=== PATIENT | female | born 1955 | race Caucasian/White ===

== ENCOUNTER 2024-07-18 12:24 | Outpatient (REF) | payer MEDICARE, MEDICAID, SELFPAY ==
--- NOTE | ~2024-07-18 | MM_ITS ---
EXAMINATION: MM SCREENING DIGITAL BREAST TOMOSYNTHESIS, BILATERAL CLINICAL INFORMATION: Screening. Asymptomatic. COMPARISON: Mammography: Comparison is made with available priors TECHNIQUE: Digital breast mammography with tomosynthesis is performed in both the craniocaudal and mediolateral oblique views along with computer-aided detection (CAD). FINDINGS: There are scattered areas of fibroglandular density (ACR BI-RADS breast composition Category b). There are no significant masses, abnormal calcifications, or other abnormalities. MM/MM tomosynthesis screening BI IMPRESSION: No mammographic evidence of malignancy. ASSESSMENT: BI-RADS BI-RADS 1 - Negative RECOMMENDATION: Routine annual mammography screening. 1 year F/U This examination should not preclude the clinical evaluation of a suspicious palpable abnormality. This patient's information was entered into a reminder system with a target due date for their next mammogram. Electronically signed by: Mariaelena Sanabria DO 07/30/2024 05:15 PM EDT
== END 2024-07-18 12:25 | disposition home or self-care (01) ==
LOC: HO.MAMMO 12:24
PROVIDERS: PCP Hospitalist; Visit Provider Hospitalist
DX: Z12.31 Encounter for screening mammogram for malignant neoplasm of breast (principal)
CPT/HCPCS: 77063; 77067

== ENCOUNTER → 2024-07-18 12:30 | Outpatient (BNV) | payer MEDICARE, MEDICAID, SELFPAY | PROVIDERS: PCP Hospitalist; Visit Provider Internal Medicine | DX: Z12.31 Encounter for screening mammogram for malignant neoplasm of breast (principal) | CPT/HCPCS: 77063; 77067 ==

== ENCOUNTER 2024-08-08 13:31 | Outpatient (AMB) | payer MEDICARE, SELFPAY ==
[2024-08-08 13:34] VITALS: BP 112/58; PULSE 86; O2SAT 94; BMI 47.6
--- NOTE | 2024-08-08 13:34 | MHC.OFFVIS ---
Vital Signs 08/08/24 13:34 Height 5 ft 2 in Weight 260 lb 6 oz BMI 47.6 BP 112/58 L Blood Pressure Location Rt radial Position Sitting Pulse 86 Pulse Source Doppler Pulse Oximetry (%) 94 Oxygen Delivery Method Room Air Intake Visit Reasons: copd/sleep apnea Allergies topiramate [From Topamax] Adverse Reaction (Intermediate, Verified 08/08/24 13:40) Unknown oxybutynin Adverse Reaction (Unknown, Verified 08/08/24 13:40) Unknown oxycodone Adverse Reaction (Unknown, Verified 08/08/24 13:40) Unknown tuberculin, purified protein deriva Adverse Reaction (Unknown, Verified 08/08/24 13:40) Unknown lithium Allergy (Severe, Uncoded 08/08/24 13:40) coma zyprexa Adverse Reaction (Unknown, Uncoded 08/08/24 13:40) Unknown HPI HPI copd/sleep apnea: Details: 69-year-old lady, former 40+ pack-year smoker, quit 2020, with underlying history of COPD and CHRIS on CPAP therapy, prior pulmonary emboli approximately 5 years prior currently on no anticoagulation therapy referred for pulmonary evaluation. Patient has been using trilogy and albuterol MDI/nebs with reasonable control of her underlying symptoms. She denies recent exacerbations. Patient has been using her CPAP machine, however she had significant weight changes in does not think it controls her symptoms. She denies family history of lung disease or exposure to industrial dusts. [facility] Social History (Updated 08/08/24 @ 13:41 by Cherie Pickard Gabriela) Patient Tobacco Use Status: Former Tobacco user Tobacco use type: Cigarette Years Smoked: quit december 2021, started at age 16, 1PPD Review of Systems Const Denies daytime sleepiness, Denies excessive sweating, Denies fatigue, Denies fever(s), Denies lethargy, Denies malaise, Denies night sweats, Denies snoring and Denies weight loss Eyes Denies blurry vision and Denies itchy eyes ENT Denies nasal congestion, Denies post nasal drip, Denies sinus pain, Denies sinus pressure and Denies other ( Thrush) Card Denies chest pain, Denies pedal edema, Denies dyspnea, Denies orthopnea and Denies paroxysmal nocturnal dyspnea Resp Denies cough, Denies hemoptysis, Denies excessive phlegm production, Denies dyspnea, Denies snoring and Denies wheezing GI Denies abdominal pain and Denies heartburn Musc Denies myalgias, Denies arthralgias and Denies joint swelling Skin/Breast Denies rash Neuro Denies memory loss and Denies seizure-like activity Psych Denies abnormal sleep pattern, Denies anxiety and Denies memory loss Endo Denies excessive sweating, Denies fatigue and Denies heat intolerance Alexx/Lymph Denies easy bruising Aller/Immun Denies itchy eyes, Denies seasonal rhinorrhea and Denies wheezing Physical Exam Vital Signs: Last Vital Signs Pulse 86 08/08/24 13:34 BP 112/58 L 08/08/24 13:34 Pulse Ox 94 08/08/24 13:34 Oxygen Delivery Method Room Air 08/08/24 13:34 BMI result Body Mass Index 47.6 Const General: no acute distress and alert Nutritional Appearance: obese Orientation/consciousness: Other orientation findings ( oriented) HEENT Head: Yes atraumatic Eyes General: appearance normal, both eyes and all related structures Sclerae: sclerae normal EOM: EOMs intact bilaterally Neck Neck: Yes supple Lymphatic: no lymphadenopathy noted Resp Effort & Inspection: normal respiratory effort and no use of accessory muscles Auscultation: clear to auscultation bilaterally Cardio Rate: regular rate Rhythm: regular rhythm Heart sounds: no gallops, no murmurs and no rubs Skin General skin exam: other ( warm) Extrem General: No clubbing, No cyanosis and No edema Assessment & Plan Assessment & Plan (1) History of pulmonary embolism: Code(s): Z86.711 - Personal history of pulmonary embolism Category: Medical Plan: Approximately 5 years prior, unclear whether a provoked, or unprovoked, currently not on anticoagulation. Will obtain D-dimer for further evaluation. (2) COPD (chronic obstructive pulmonary disease): Code(s): J44.9 - Chronic obstructive pulmonary disease, unspecified Category: Medical Plan: Unclear severity. Will obtain full PFT. Will continue current regimen of Trelegy and albuterol MDI. (3) CHRIS (obstructive sleep apnea): Code(s): G47.33 - Obstructive sleep apnea (adult) (pediatric) Category: Medical Plan: Currently on CPAP therapy with significant weight changes in unrestful sleep. Will obtain home sleep study. (4) Personal history of nicotine dependence: Code(s): Z87.891 - Personal history of nicotine dependence Category: Medical Plan: Will obtain lung cancer screening CT chest. Orders: Orders RT home sleep study Today G47.33 - Obstructive sleep apnea (adult) (pediatric) CT lung screening Today Z87.891 - Personal history of nicotine dependence D Dimer High Sensitivity Today Z86.711 - Personal history of pulmonary embolism PFT pulmonary function test Today J44.9 - Chronic obstructive pulmonary disease, unspecified Coding Level of Care Code New Pt Level 5 (87017) Diagnoses History of pulmonary embolism Z86.711 COPD (chronic obstructive pulmonary disease) J44.9 CHRIS (obstructive sleep apnea) G47.33 Personal history of nicotine dependence Z87.891
== END 2024-08-08 14:01 | disposition home or self-care (01) ==
PROVIDERS: PCP Hospitalist; Visit Provider Internal Medicine Pulmonary Disease
DX: J44.9 Chronic obstructive pulmonary disease, unspecified (principal); Z86.711 Personal history of pulmonary embolism; G47.33 Obstructive sleep apnea (adult) (pediatric); Z87.891 Personal history of nicotine dependence
CPT/HCPCS: 99204

== ENCOUNTER → 2024-08-08 13:31 | Outpatient (BNVA) | payer MEDICARE, SELFPAY | PROVIDERS: PCP Hospitalist; Visit Provider Internal Medicine Pulmonary Disease | DX: J44.9 Chronic obstructive pulmonary disease, unspecified (principal); G47.33 Obstructive sleep apnea (adult) (pediatric); Z99.89 Dependence on other enabling machines and devices; Z87.891 Personal history of nicotine dependence; Z86.711 Personal history of pulmonary embolism | CPT/HCPCS: 99202 ==

== ENCOUNTER 2024-08-30 08:56 | Outpatient (AMB) | payer MEDICARE, SELFPAY ==
--- NOTE | 2024-08-30 09:16 | A.OFFVIS_ITS ---
Intake Visit Reasons: urinary incotinence/OAB/hx UTI Intake Note: New Patient presents for initial visit for incontinence, OAB, history of uti Urology Medications: none Blood Thinner: aspirin PVR: 0ml's Aquarist Required: No Accompanied by: [facility] Allergies topiramate [From Topamax] Adverse Reaction (Intermediate, Verified 08/30/24 09:39) Unknown oxybutynin Adverse Reaction (Unknown, Verified 08/30/24 09:39) Unknown oxycodone Adverse Reaction (Unknown, Verified 08/30/24 09:39) Unknown tuberculin, purified protein deriva Adverse Reaction (Unknown, Verified 08/30/24 09:39) Unknown lithium Allergy (Severe, Uncoded 08/30/24 09:39) coma zyprexa Adverse Reaction (Unknown, Uncoded 08/30/24 09:39) Unknown Medication List - Last Reconciled 08/30/24 by RUBINA Richardson-LISE albuterol 90 mcg/actuation mcg inhalation albuterol sulfate 0.63 mg inhalation Q6H aspirin 81 mg PO DAILY bisacodyl 10 mg OK DAILY PRN ferrous sulfate 325 mg PO DAILY zjearigceke-kjmrnhria-uyqrmhpd 100-62.5-25 mcg (Trelegy Ellipta) 1 inh inhalat ion DAILY gabapentin 300 mg PO BID hydroxyzine HCl 50 mg PO TID insulin lispro (Humalog U-100 Insulin) 1 sliding scale dose subcut USEASDIRECTD levothyroxine 125 mcg PO DAILY loperamide 2 mg PO Q4H PRN losartan 25 mg PO DAILY meclizine 12.5 mg PO BID-QID PRN pantoprazole 40 mg PO DAILY risperidone 2 mg PO BID rosuvastatin 5 mg PO DAILY semaglutide (Ozempic) 0.5 mg subcut QWEEK venlafaxine ER 150 mg PO DAILY HPI Comments Details: Mattie is a pleasant 69-year-old female patient of Dr. Snow will resides at [facility] in his accompanied by Ladonna at today's office visit. She has a past medical history of persistent mood disorder, personality disorder, PTSD, COPD, anxiety, type 2 diabetes, obstructive sleep apnea, obesity, renal cysts, overactive bladder, incontinence, pulmonary embolism, hypothyroidism, hyperlipidemia, mild intellectual disability, GERD, polymyalgia rheumatica, and fibromyalgia. She presents to the office today as a new patient for mixed urinary incontinence. In discussion with the patient today she reports when she lived in [place] she had a Silva catheter due to urinary incontinence. We discussed at length indications for Silva catheter. She reports mixed urinary incontinence however this is not every day. She reports at times she does not utilize any change in adult diapers however she has days where she can change her adult diaper up to 5 times per day. We discussed at length potential causes of mixed urinary incontinence. She reports having trialed pelvic floor therapy in [place] and did not find this helpful. We discussed potential causes of mixed urinary incontinence as well as further treatment options. Unable to obtain urine for urinalysis today however PVR 0 mL. She otherwise denies hematuria, dysuria, foul smelling urine, changes to urinary stream, flank pain, fever, and or chills. [facility] Social History Patient Tobacco Use Status: Former Tobacco user Tobacco use type: Cigarette Years Smoked: quit december 2021, started at age 16, 1PPD Review of Systems Eyes Reports no additional complaints ENT Reports as per HPI Card Reports as per HPI Resp Reports as per HPI GI Reports as per HPI Reports as per HPI Musc Reports as per HPI Neuro Reports as per HPI Psych Reports as per HPI Endo Reports as per HPI Alexx/Lymph Reports no additional complaints Aller/Immun Reports no additional complaints Physical Exam Const General: cooperative, healthy appearing, comfortable, no acute distress, well developed, alert and awake Nutritional Appearance: obese Orientation/consciousness: patient oriented x3 Limitations: wheelchair HEENT Head: Yes normal to inspection, Yes normocephalic and Yes atraumatic Ears: hearing grossly normal bilaterally Eyes General: appearance normal, both eyes and all related structures Neck Neck: Yes normal visual inspection and Yes trachea midline Chest Chest palpation & inspection: normal inspection of the chest Resp Effort & Inspection: normal respiratory effort and able to speak in complete sentences Cardio Rate: regular rate GI Inspection: Yes normal to inspection General: Yes no CVA tenderness Back/Spine/Pelvis Back: no CVA tenderness Skin General skin exam: no rashes or lesions noted Neuro General: patient oriented x3 Extrem General: Yes normal to inspection Psych Appearance: grossly normal and well kempt Mental Status: mental status grossly normal Speech and movement: Normal speech and movement present and Clear speech present Affect: normal affect Attitude: cooperative Thought process: Normal thought process present Thought content: Normal thought content present Insight: Fair insight present (Psych) Judgement: Fair judgement present (Psych) Office Procedures Post Void Residual Post Residual Void Post Void Residual (PVR): 0 [id number]-[id number] Void Residual by ultrasound Assessment & Plan Assessment & Plan (1) Urinary incontinence, mixed: Code(s): N39.46 - Mixed incontinence Category: Medical Plan Unable to obtain urine for urinalysis however PVR 0 mL. We discussed importance of weight loss as well as management of diabetes for improvement in lower urinary tract symptoms as well as overall health and well- being. Will obtain retroperitoneal ultrasound for further assessment evaluation. We discussed potential causes of mixed urinary incontinence. Start Myrbetriq as discussed and prescribed. Discussed bladder triggers/irritants. Follow-up in 3 months with imaging and PVR; or sooner with any issues, concerns, and or questions. Orders: Orders US retroperitoneal comp Today N39.46 - Mixed incontinence AMB Post Void Residual by ultrasound Today N39.41 - Urge incontinence Medications: New mirabegron ER (Myrbetriq) 25 mg PO DAILY 30 tabs 3RF 30 days N32.81 - Overactive bladder, R39.15 - Urgency of urination Patient Instructions: The patient had an opportunity to ask questions regarding the treatment plan. All questions were answered. Physical exam, labs, and imaging were discussed and reviewed in detail. As well as risks, benefits, and discussion of treatment choices. No major barriers to understanding were identified. The patient expressed understanding and agreement with the above treatment plan. The patient was made aware they should contact our office by phone for worsening of their current condition, the appearance of new symptoms, or with any questions or concerns. Compliance is encouraged with any medications and follow up testing that is ordered. It is a privilege to be allowed the opportunity to participate in? your urological care.? Again, if you have any questions or concerns If you have any questions or concerns please do not hesitate to contact me. The office is [phone]. This note is constructed using voice recognition software. While every effort has been made to ensure accuracy military lawyer errors may have been included. Yours sincerely, RUBINA Richardson-LISE Coding Level of Care Code New Pt Level 4 (29870) Diagnoses Urinary incontinence, mixed N39.46 CPT Codes Post Residual Void - PVR CPT Code: 49689-Umqe Void Residual by ultrasound ([id number])
== END 2024-08-30 09:44 | disposition home or self-care (01) ==
LOC: HO.HUSH 08:57
PROVIDERS: PCP Hospitalist; Visit Provider Nurse Practitioner Family
DX: N39.46 Mixed incontinence (principal)
CPT/HCPCS: 99204

== ENCOUNTER → 2024-08-30 08:56 | Outpatient (BNVA) | payer MEDICARE, SELFPAY | PROVIDERS: PCP Hospitalist; Visit Provider Nurse Practitioner Family | DX: N39.46 Mixed incontinence (principal); N32.81 Overactive bladder; Z87.440 Personal history of urinary (tract) infections | CPT/HCPCS: 51798; 99202 ==

== ENCOUNTER 2024-09-12 13:59 | Outpatient (REF) | payer MEDICARE, SELFPAY ==
[2024-09-12 11:45] VITALS: PULSE 82; O2SAT 84
--- NOTE | 2024-09-12 14:15 | PFT_ITS ---
Indication: COPD Spirometry [FEV1 to FVC 80%; FEV1 1.49 L; FVC 1.87 L. No significant response to bronchodilators noted. Maximum voluntary ventilation 54% predicted] Lung Volumes [Total lung capacity 71% predicted; expiratory reserve volume 5% predicted] Diffusion Capacity [DLCO 69% predicted; DLCO VA 106% predicted] Comparisons [None] Interpretation [No obstructive ventilatory defects. No significant response to bronchodilators noted. There is a moderate decrease in the maximum voluntary ventilation secondary to likely deconditioning. Can not rule out neuromuscular diseases. The patient does have restrictive ventilatory defect consistent with mild restrictive lung disease. Patient also has a significantly decreased expiratory reserve volume secondary to an elevated BMI. Patient has a mild diffusion impairment that does correct when corrected for the alveolar volume suggesting that is hyperexpansion less likely intrinsic process. Clinical correlation warranted.] MTDD
== END 2024-09-12 14:00 | disposition home or self-care (01) ==
LOC: HO.RESP 13:59
PROVIDERS: PCP Hospitalist; Visit Provider Internal Medicine Pulmonary Disease
DX: J44.9 Chronic obstructive pulmonary disease, unspecified (principal)
CPT/HCPCS: 94010; 94640; 94727; 94729

== ENCOUNTER → 2024-09-12 14:15 | Outpatient (BNV) | payer MEDICARE, SELFPAY | PROVIDERS: PCP Hospitalist; Visit Provider Hospitalist | DX: J44.9 Chronic obstructive pulmonary disease, unspecified (principal) | CPT/HCPCS: 94060; 94727; 94729 ==

== ENCOUNTER → 2024-09-18 12:48 | Outpatient (REF) | payer MEDICARE, SELFPAY | LOC: HO.SL 12:48 | PROVIDERS: PCP Hospitalist; Visit Provider Internal Medicine Pulmonary Disease | DX: G47.33 Obstructive sleep apnea (adult) (pediatric) (principal) | CPT/HCPCS: 95806 ==

== ENCOUNTER → 2024-09-18 13:02 | Outpatient (BNV) | payer MEDICARE, SELFPAY | PROVIDERS: PCP Hospitalist; Visit Provider Internal Medicine | DX: G47.33 Obstructive sleep apnea (adult) (pediatric) (principal) | CPT/HCPCS: 95806 ==

== ENCOUNTER 2024-10-23 14:28 | Outpatient (REF) | payer MEDICARE, SELFPAY ==
--- NOTE | ~2024-10-23 | CT_ITS ---
EXAMINATION: CT LUNG SCREENING HISTORY: Smoking history TECHNIQUE: Low dose axial images were obtained from the sternal notch to upper abdomen without IV contrast per standard departmental protocol. Sagittal and coronal reformatted images were also obtained and reviewed. One or more of the following techniques was used for dose reduction: Automated exposure control, adjustment of the mA and/or kV according to patient size, use of iterative reconstruction technique. DLP: 121 mGy-cm COMPARISON: There are no prior studies for comparison. FINDINGS: Lung nodules: There is a 4 mm nodule in the right lobe (image 33). No additional pulmonary nodules are identified. There is subsegmental atelectasis at both lung bases. Emphysema: none Coronary Calcification: mild Aortic Arch Calcification: mild Potentially Significant Incidentals : none Additional Chest Findings: There is no pleural or pericardial effusion. No mediastinal or axillary lymphadenopathy is identified. Visualized upper abdomen: The visualized portions of the liver, spleen, and adrenals have an unremarkable unenhanced appearance. CT/CT lung screening IMPRESSION: No suspicious pulmonary nodules are identified. LUNG-RADS ASSESSMENT: Lung-RADS 2: Benign MANAGEMENT: Continue annual screening with LDCT in 12 months Category S: N/A Electronically signed by: Ti Cowan MD 10/29/2024 09:37 AM [facility]
--- OUTSIDE RECORDS SUMMARY | 2024-10-23 14:31 | XMS_ITS | Continuity of Care Document ---
Author Organization [facility] Address [address] [address] Phone Care Team Providers Care Marksmanship Instructor Name Role Phone Floresita ERVINAkil Unavailable Unavailable Allergies, Adverse Reactions, Alerts Substance [...] Active Procedures Procedure Date OFFICE/OUTPATIENT VISIT, EST OFFICE/OUTPATIENT VISIT, EST INTERMEDIATE EYE EXAM, ESTABLISHED STEVEN Mart FUNDUS PHOTOGRAPHY OFFICE/OUTPATIENT VISIT, EST MEDICAL SERVICES AFTER HRS COMPREHENSIVE EYE EXAM, NEW PATIENT REFRACTION WITH EXAM Scanning Imaging, Posterior Segment, Opt ic Nerve Advance Directives Directive Yes / No Effective Date File Name No Information Encounters Encounter Description Practice Location Reason(s) For Visit Diagnoses Date Provider Providers Copied on Encounter OFFICE/OUTPA TIENT VISIT, [facility] , [address], [facility], tel:[phone] [place] decreased vision (chief complaint) achiness (chief complaint) Exdtve age-rel mclr degn, right eye, with actv chrdl neovas Sep-2 9 Floresita Barnard. [address] [facility] [address] [facility], [place], [place], [facility], [place]. tel:[phone] OFFICE/OUTPA TIENT VISIT, [facility] , [address], [facility], tel:[phone] [place] floaters (chief complaint) pressure, pain (chief complaint) Vitreous degeneration, left eyePresbyopia 9 Floresita Barnard. [address] [place] [address], [address], [facility], [place]. tel:[phone] [facility] , [address] [place] [address], [address], tel:[phone] [place] floaters (chief complaint) Vitreous degeneration, left eye 9 Floresita Barnard. [address] [place] [address], [address], [facility], . tel:[phone] OFFICE/OUTPA TIENT VISIT, [facility] , [address], [facility], [place] tel:[phone] [place] No Information Oct-0 9201 7 Yevgeniy Valencia [address] [place] [address], [address] [place] [address], [facility], [place]. 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 [address], [facility], . tel:[phone] [facility] , [address] [place] [address], [facility], tel:[phone] [place] decreased vision (chief complaint) PresbyopiaAge-re lated nuclear cataract, bilateralOpen angle with borderline findings, low risk, bilateral Feb-2 7 Floresita Barnard. [address] [place] [address], [facility], . tel:[phone] Family History Family Member Type Diagnosis Age At Onset Mother Problem (finding) diabetes melli tus in first degree relative Payers Payer name Insurance type Covered libertarian ID Authoriza tiranulfo(s) [id number] Social History Type Description Quantity Date Captured [...] It started about 1 month(s) ago . Reason For Referral Reason For Referral No Information Plan Of Treatment Date Type Action Status Oct-07-2017 Goal Tobacco cessation counseling completed Goal Tobacco cessation counseling completed Referral Ordered: Kacie Ayala MD (related to Exdtve age-rel mclr degn, right eye, with actv chrdl neovas) ordered Referral Referred To: Kacie Ayala MD [address] [place], [address] [phone] Ordered: Referrals: Kacie Ayala MD. Consult ordered [...] numerous times as a child she says.. Functional Status Date Functional Assessmen t No Information Instructions Date Instruction Additional Infor yasmeen to retinal SAL for evauation Re lated to Exdtve age-rel mclr degn, right eye, with actv chrdl neovas Impression/Plan Related to Exdtv e age-rel mclr degn, right eye, with actv chrdl neovas 8 months for dfe OU Related to V itreous degeneration, left eye return for refraction check prn Related to Presbyopia Impression/Plan Related to Vitre ous degeneration, left eye Impression/Plan Related to Presb yopia 2 weeks for follow updfe both ey es Related to Vitreous degeneration, left eye Impression/Plan Related to Vitre ous degeneration, left eye Impression/Plan - Hao hutchinson called answering service at 430pm and I [...] acute process. Patient is a resident at [facility] and here with legal guardian today. Explained [...] right eye, with actv chrdl neovas: H35.3211 Patient Care Teams Name Effective Dates (start - stop) Status Members No Information
== END 2024-10-23 14:29 | disposition home or self-care (01) ==
LOC: HO.CT 14:28
PROVIDERS: PCP Hospitalist; Visit Provider Internal Medicine Pulmonary Disease
DX: Z12.2 Encounter for screening for malignant neoplasm of respiratory organs (principal); Z87.891 Personal history of nicotine dependence
CPT/HCPCS: 71271

== ENCOUNTER → 2024-10-23 14:30 | Outpatient (BNV) | payer MEDICARE, SELFPAY | PROVIDERS: PCP Hospitalist; Visit Provider Radiology Diagnostic Radiology | DX: Z87.891 Personal history of nicotine dependence (principal) | CPT/HCPCS: 71271 ==

== ENCOUNTER 2024-12-04 13:51 | Outpatient (REF) | payer MEDICARE, SELFPAY ==
--- NOTE | ~2024-12-04 | US_ITS ---
CLINICAL HISTORY: N39.46 - Mixed incontinence US Renal Comparison: None Findings: Right kidney normal size and echotexture, 10.3 cm length. Left kidney normal size and echotexture, 11.2 cm length. 9 mm benign upper pole cyst. No hydronephrosis of either kidney. Normal color Doppler. Urinary bladder is unremarkable. Prevoid volume 205 mL. Postvoid volume: Unable to physically ambulate to void therefore no postvoid evaluation is performed. Bilateral ureteral jets are visualized. IMPRESSION: 1. Normal kidneys. This document has been electronically signed by: Ga Carrion MD on 12/05/2024 11:43:55
== END 2024-12-04 13:52 | disposition home or self-care (01) ==
LOC: HO.US 13:51
PROVIDERS: PCP Hospitalist; Visit Provider Nurse Practitioner Family
DX: N39.46 Mixed incontinence (principal)
CPT/HCPCS: 76770

== ENCOUNTER → 2024-12-04 13:54 | Outpatient (BNV) | payer MEDICARE, SELFPAY | PROVIDERS: PCP Hospitalist; Visit Provider Radiology Vascular & Interventional Radiology | DX: N39.46 Mixed incontinence (principal) | CPT/HCPCS: 76770 ==

== ENCOUNTER 2025-01-03 13:55 | Outpatient (AMB) | payer MEDICARE, SELFPAY ==
[2025-01-03 13:58] VITALS: BP 108/58; PULSE 92; O2SAT 95; BMI 49.0
--- NOTE | 2025-01-03 13:58 | A.OFFVIS_ITS ---
Vital Signs 01/03/25 13:58 Height 5 ft 2 in Weight 267 lb 13.786 oz BMI 49.0 BP 108/58 L Blood Pressure Location Rt radial Position Sitting Pulse 92 Pulse Source Doppler Pulse Oximetry (%) 95 Oxygen Delivery Method Room Air Intake Visit Reasons: sleep apnea Allergies topiramate [From Topamax] Adverse Reaction (Intermediate, Verified 01/03/25 14:09) Unknown oxybutynin Adverse Reaction (Unknown, Verified 01/03/25 14:09) Unknown oxycodone Adverse Reaction (Unknown, Verified 01/03/25 14:09) Unknown tuberculin, purified protein deriva Adverse Reaction (Unknown, Verified 01/03/25 14:09) Unknown lithium Allergy (Severe, Uncoded 08/30/24 09:39) coma zyprexa Adverse Reaction (Unknown, Uncoded 08/30/24 09:39) Unknown HPI HPI sleep apnea: Details: 69-year-old lady, former 40+ pack-year smoker, quit 2020, followed for underlying CHRIS, emphysema, and history of pulmonary emboli. Patient has not completed her D-dimer. She has been using CPAP with good control of her sleep apnea. She has also been using Trelegy and albuterol MDI with reasonable control of her COPD. Her lung cancer screening CT chest did not demonstrate any worrisome pulmonary nodules. [facility] Social History Patient Tobacco Use Status: Former Tobacco user Tobacco use type: Cigarette Years Smoked: quit december 2021, started at age 16, 1PPD Review of Systems Const Denies daytime sleepiness, Denies excessive sweating, Denies fatigue, Denies fever(s), Denies lethargy, Denies malaise, Denies night sweats, Denies snoring and Denies weight loss Eyes Denies blurry vision and Denies itchy eyes ENT Denies nasal congestion, Denies post nasal drip, Denies sinus pain, Denies sinus pressure and Denies other ( Thrush) Card Denies chest pain, Denies pedal edema, Denies dyspnea, Denies orthopnea and Denies paroxysmal nocturnal dyspnea Resp Denies cough, Denies hemoptysis, Denies excessive phlegm production, Denies dyspnea, Denies snoring and Denies wheezing GI Denies abdominal pain and Denies heartburn Musc Denies myalgias, Denies arthralgias and Denies joint swelling Skin/Breast Denies rash Neuro Denies memory loss and Denies seizure-like activity Psych Denies abnormal sleep pattern, Denies anxiety and Denies memory loss Endo Denies excessive sweating, Denies fatigue and Denies heat intolerance Alexx/Lymph Denies easy bruising Aller/Immun Denies itchy eyes, Denies seasonal rhinorrhea and Denies wheezing Physical Exam Vital Signs: Last Vital Signs Pulse 92 01/03/25 13:58 BP 108/58 L 01/03/25 13:58 Pulse Ox 95 01/03/25 13:58 Oxygen Delivery Method Room Air 01/03/25 13:58 BMI result Body Mass Index 49.0 Const General: no acute distress and alert Nutritional Appearance: obese Orientation/consciousness: Other orientation findings ( oriented) HEENT Head: Yes atraumatic Eyes General: appearance normal, both eyes and all related structures Sclerae: sclerae normal EOM: EOMs intact bilaterally Neck Neck: Yes supple Lymphatic: no lymphadenopathy noted Resp Effort & Inspection: normal respiratory effort and no use of accessory muscles Auscultation: clear to auscultation bilaterally Cardio Rate: regular rate Rhythm: regular rhythm Heart sounds: no gallops, no murmurs and no rubs Skin General skin exam: other ( warm) Extrem General: No clubbing, No cyanosis and No edema Assessment & Plan Assessment & Plan (1) COPD (chronic obstructive pulmonary disease): Code(s): J44.9 - Chronic obstructive pulmonary disease, unspecified Category: Medical Plan: Reasonable control on Trelegy and albuterol MDI. Continue current regimen. Results of pulmonary function test reviewed, no fixed obstruction, but does have mild restriction. (2) CHRIS (obstructive sleep apnea): Code(s): G47.33 - Obstructive sleep apnea (adult) (pediatric) Category: Medical Plan: Well controlled on CPAP therapy. Continue CPAP therapy. Results of sleep study reviewed, underlying mild obstructive sleep apnea. (3) Personal history of nicotine dependence: Code(s): Z87.891 - Personal history of nicotine dependence Category: Medical Plan: Results of lung cancer screening CT chest reviewed, no worrisome nodules noted, continue with yearly screening. Coding Level of Care Code Est Pt Level 4 (21866) Complex EM visit Add On G2211 Diagnoses COPD (chronic obstructive pulmonary disease) J44.9 CHRIS (obstructive sleep apnea) G47.33 Personal history of nicotine dependence Z87.201
--- OUTSIDE RECORDS SUMMARY | 2025-01-03 17:40 | XMS_ITS | Clinical Summary ---
Author Organization [facility] Address [address] [place] [address] Phone Care Team Providers Care Senior Analyst Developer Name Role Phone Chai Carias MD Primary Care Provider [phone] Encounters Date Type Department Care Team Description 12/24/2024 Lab Requisition [facility] [address] [place] [phone] Chai Carias MD Other hyperlipidemia; Other specified hypothyroidism; Vitamin D deficiency, unspecified 11/27/2024 Lab Requisition [facility] [address] [place] [phone] Chai Carias MD Type 2 diabetes mellitus with unspecified complications (CMS/HCC) 10/30/2024 Lab Requisition [facility] [address] [place] [address] Chai Carias MD Mixed incontinence from Last 3 Months Social History Tobacco Use Types Packs/Day Years Used Date Smoking Tobacco: Never Assessed Comments Unknown Sex and Gender Information Value Date Recorded Sex Assigned at Not on file Legal Sex Female 3:40 PM EDT Gender Identity Not on file Sexual Orientation Not on file Plan of Treatment Health Maintenance Due Date Last Done Comments Breast Cancer Screening 1957 Diabetes: Annual Foot Exam 1967 Diabetes: Annual Retina Eye Exam 1967 DTaP,Tdap,and Td Vaccines (1 - Tdap) 1976 Pneumococcal Vaccine: 50+ Ye ars (1 of 2 - PCV) 1976 Zoster Vaccines (1 of 2) 2007 COVID-19 Vaccine ( - 2023-2 5 season) 2024 Influenza Vaccine (#1) 2024 Colorectal Cancer Screening: Colonoscopy 08/19/2024 Depression Screening 08/19/2024 Falls Risk Assessment 08/19/2024 Hepatitis C Screening 08/19/2024 Medicare Annual Wellness Visit 08/19/2024 Osteoporosis Screening (Bone Density Screening) 08/19/2024 Social Influencers of Health Screening 08/19/2024 Diabetes: Annual Urine Albumin-Creatinine Ratio (uACR) 11/27/2024 Diabetes: Blood Sugar Contro l Test (HGBA1C) 05/27/2025 11/27/2024 Diabetes: Annual GFR (Glomer ular Filtration Rate) 11/27/2025 11/27/2024 Cholesterol Screening (Lipid Panel) 12/24/2029 12/24/2024 RSV Immunization Patients 60 + Years Old (1 - 1-dose 75+ series) 2032 HIB Vaccines Aged Out No longer eligi ble based on patient's age to complete this topic HPV Vaccines Aged Out No longer eligi ble based on patient's age to complete this topic Hepatitis A Vaccines Aged Out No long er eligible based on patient's age to complete this topic Hepatitis B Vaccines Aged Out No long er eligible based on patient's age to complete this topic IPV Vaccines Aged Out No longer eligi ble based on patient's age to complete this topic MMR Vaccines Aged Out No longer eligi ble based on patient's age to complete this topic Meningococcal ACWY Vaccine Aged Out N o longer eligible based on patient's age to complete this topic Meningococcal B Vacine Aged Out No lo nger eligible based on patient's age to complete this topic RSV Immunization Patients Un micky 20 months Aged Out No longer eligible b ased on patient's age to complete this topic Varicella Vaccines Aged Out No longer eligible based on patient's age to complete this topic Procedures Procedure Name Priority Date/Time Associated Diagnosis Comments VITAMIN D 25 HYDROXY Routine 12/24/2024 6:50 AM EST Other hyperlipidemia Other specified hypothyroidism Vitamin D deficiency, unspecified THYROID STIMULATING HORMONE Routine 12/24/2024 6:50 AM EST Other hyperlipidemia Other specified hypothyroidism Vitamin D deficiency, unspecified LIPID PANEL WITH REFLEX TO DIRECT LDL Routine 12/24/2024 6:50 AM EST Other hyperlipidemia Other specified hypothyroidism Vitamin D deficiency, unspecified COMPLETE BLOOD COUNT Routine 11/27/2024 7:01 AM EST Type 2 diabetes mellitus with unspecified complications (CMS/HCC) HEMOGLOBIN A1C Routine 11/27/2024 7:01 AM EST Type 2 diabetes mellitus with unspecified complications (CMS/HCC) COMPREHENSIVE METABOLIC PANEL Routine 11/27/2024 7:01 AM EST Type 2 diabetes mellitus with unspecified complications (CMS/HCC) URINALYSIS WITH REFLEX MICROSCOPIC Routine 10/30/2024 12:45 PM EST Mixed incontinence URINALYSIS WITH REFLEX MICROSCOPIC Routine 10/30/2024 12:45 PM EST Mixed incontinence CULTURE URINE Routine 10/30/2024 12:45 PM EST Mixed incontinence from Last 3 Months Results * Lipid panel with reflex to direct LDL (12/24/2024 6:50 AM EST) Cholesterol 139 0 - 200 mg/dL LAB CHEMISTRY METHOD 12/24/2024 8:[address] [facility] Triglycerides 130 0 - 150 mg/dL LAB CHEMISTRY METHOD 12/24/2024 8:[address] [facility] HDL 50 >=40 mg/dL LAB CHEMISTRY METHOD 12/24/2024 8:[address] [facility] LDL Calculated 63 0 - 100 mg/dL LAB CHEMISTRY METHOD 12/24/2024 8:[address] [facility] VLDL Cholesterol Josiah 26 mg/dL LAB CHEMISTRY METHOD 12/24/2024 8:[address] [facility] Non HDL Chol. (LDL+VLDL) 89 <145 mg/dL LAB CHEMISTRY METHOD 12/24/2024 8:[address] [facility] Chol/HDL Ratio 2.8 0.0 - 4.4 LAB CHEMISTRY METHOD 12/24/2024 8:[address] [facility] Blood Venous blood specimen / Unknown 12/24/2024 6:50 AM EST 12/24/2024 7:47 AM EST us Chai Carias MD LAB BLOOD ORDERABLES Final Resul t Performing Organization Address [facility] Co de Phone Number [facility] [address] [place] [address], [place] [phone] * (ABNORMAL) Vitamin D 25 hydroxy (12/24/2024 6:50 AM EST) Pathologist [facility] Vit D, 25-Hydroxy 80.5(H) 30.0 - 80.0 ng/mL LAB CHEMISTRY METHOD 12/24/2024 8:[address] [facility] Blood Venous blood specimen / Unknown 12/24/2024 6:50 AM EST 12/24/2024 7:47 AM EST us Chai Carias MD LAB BLOOD ORDERABLES Final Resul t Performing Organization Address [facility] Co de Phone Number [facility] [address] [place] [address], [place] [phone] * Thyroid stimulating hormone (12/24/2024 6:50 AM EST) [facility] TSH 2.16 0.40 - 4.00 mcIU/mL LAB CHEMISTRY METHOD 12/24/2024 8:[address] [facility] Blood Venous blood specimen / Unknown 12/24/2024 6:50 AM EST 12/24/2024 7:47 AM EST us Chai Carias MD LAB BLOOD ORDERABLES Final Resul t Performing Organization Address City/[facility]/ZIP Co de Phone Number [facility] [address] [place] [address], [place] [phone] * (ABNORMAL) Complete blood count (11/27/2024 7:01 AM EST) [facility] WBC 8.6 4.8 - 10.8 K/mcL LAB HEMETOLOGY METHOD 11/27/2024 8:[address] [facility] RBC 3.70(L) 3.80 - 4.80 M/mcL LAB HEMETOLOGY METHOD 11/27/2024 8:[address] [facility] Hemoglobin 10.2(L) 11.5 - 16.0 g/dL LAB HEMETOLOGY METHOD 11/27/2024 8:[address] [facility] Hematocrit 31.8(L) 35.0 - 47.0 % LAB HEMETOLOGY METHOD 11/27/2024 8:[address] [facility] MCV 86.2 79.0 - 98.0 FL LAB HEMETOLOGY METHOD 11/27/2024 8:[address] [facility] MCH 27.6 27.0 - 32.0 pcg LAB HEMETOLOGY METHOD 11/27/2024 8:[address] [facility] MCHC 32.1 32.0 - 37.0 g/dL LAB HEMETOLOGY METHOD 11/27/2024 8:[address] [facility] RDW 16.3(H) 11.0 - 15.0 % LAB HEMETOLOGY METHOD 11/27/2024 8:[address] [facility] Platelets 206 130 - 400 K/mcL LAB HEMETOLOGY METHOD 11/27/2024 8:[address] [facility] MPV 9.9 7.0 - 11.0 FL LAB HEMETOLOGY METHOD 11/27/2024 8:[address] [facility] NRBC 0.0 <1.0 % LAB HEMETOLOGY METHOD 11/27/2024 8:[address] [facility] NRBC Absolute 0.00 <0.10 K/mcL LAB HEMETOLOGY METHOD 11/27/2024 8:[address] [facility] Blood Venous blood specimen / Unknown 11/27/2024 7:01 AM EST 11/27/2024 8:05 AM EST us Chai Carias MD LAB BLOOD ORDERABLES Final Resul t Performing Organization Address [facility]/ZIP Co de Phone Number [facility] [address] [place] [address], [place] [phone] * Hemoglobin A1c (11/27/2024 7:01 AM EST) Pathologist [facility] Hemoglobin A1C 5.9 <6.5 % LAB CHEMISTRY METHOD 11/27/2024 2:[address] [facility] Mean Bld Glu Estim. 123 mg/dL LAB CHEMISTRY METHOD 11/27/2024 2:[address] [facility] Blood Venous blood specimen / Unknown 11/27/2024 7:01 AM EST 11/27/2024 8:05 AM EST us Chai Carias MD LAB BLOOD ORDERABLES Final Resul t Performing Organization Address [facility]/ZIP Co de Phone Number [facility] [address] [place] [address], [place] [phone] * (ABNORMAL) Comprehensive metabolic panel (11/27/2024 7:01 AM EST) [facility] Sodium 138 133 - 145 mmol/L LAB CHEMISTRY METHOD 11/27/2024 8:[address] [facility] Potassium 4.2 3.5 - 5.5 mmol/L LAB CHEMISTRY METHOD 11/27/2024 8:[address] [facility] Chloride 105 96 - 110 mmol/L LAB CHEMISTRY METHOD 11/27/2024 8:[address] [facility] CO2 25 21 - 32 mmol/L LAB CHEMISTRY METHOD 11/27/2024 8:[address] [facility] Anion Gap 8 3 - 11 LAB CHEMISTRY METHOD 11/27/2024 8:[address] [facility] Glucose 86 70 - 100 mg/dL LAB CHEMISTRY METHOD 11/27/2024 8:[address] [facility] BUN 16 5 - 25 mg/dL LAB CHEMISTRY METHOD 11/27/2024 8:[address] [facility] Creatinine 0.76 0.50 - 1.10 mg/dL LAB CHEMISTRY METHOD 11/27/2024 8:[address] [facility] eGFR 86 >=60 mL/min/1. 73m2 LAB CHEMISTRY METHOD 11/27/2024 8:[address] [facility] Comment:Calculation based on the??Chronic Kidney Disease Epidemiology Collaboration (CKD-EPI) equation refit??without adjustment for race. BUN/Creatinine Ratio 21.1 LAB CHEMISTRY METHOD 11/27/2024 8:[address] [facility] Calcium 8.8 8.5 - 10.5 mg/dL LAB CHEMISTRY METHOD 11/27/2024 8:[address] [facility] AST (SGOT) 31 10 - 42 unit/L LAB CHEMISTRY METHOD 11/27/2024 8:[address] [facility] ALT (SGPT) 23 10 - 60 unit/L LAB CHEMISTRY METHOD 11/27/2024 8:[address] [facility] Alkaline Phosphatase 128(H) 42 - 121 unit/L LAB CHEMISTRY METHOD 11/27/2024 8:[address] [facility] Total Protein 6.8 6.0 - 8.0 g/dL LAB CHEMISTRY METHOD 11/27/2024 8:[address] [facility] Albumin 3.0(L) 3.2 - 5.0 g/dL LAB CHEMISTRY METHOD 11/27/2024 8:[address] [facility] Total Bilirubin 0.4 0.0 - 1.4 mg/dL LAB CHEMISTRY METHOD 11/27/2024 8:[address] [facility] Blood Venous blood specimen / Unknown 11/27/2024 7:01 AM EST 11/27/2024 8:05 AM EST us Chai Carias MD LAB BLOOD ORDERABLES Final Resul t [facility] [address] [place] [address], [place] [phone] * (ABNORMAL) Urinalysis with reflex microscopic (10/30/2024 12:45 PM EST) Specific [place] Urine 1.012 1.003 - 1.030 LAB URINALYSIS - AUTOMATED METHOD 10/30/2024 5:[address] [facility] pH, Urine 6.0 5.0 - 8.0 pH LAB URINALYSIS - AUTOMATED METHOD 10/30/2024 5:[address] [facility] Leukocytes, Urine Moderate(A) Negative LAB URINALYSIS - AUTOMATED METHOD 10/30/2024 5:[address] [facility] Nitrite, Urine Positive(A) Negative LAB URINALYSIS - AUTOMATED METHOD 10/30/2024 5:[address] [facility] Protein, Urine Negative <=Trace mg/dL LAB URINALYSIS - AUTOMATED METHOD 10/30/2024 5:[address] [facility] Glucose, Urine Negative Negative mg/dL LAB URINALYSIS - AUTOMATED METHOD 10/30/2024 5:[address] [facility] Ketones, Urine Negative Negative mg/dL LAB URINALYSIS - AUTOMATED METHOD 10/30/2024 5:[address] [facility] Urobilinogen , Urine 1.0 0.2 - 1.0 mg/dL LAB URINALYSIS - AUTOMATED METHOD 10/30/2024 5:[address] [facility] Bilirubin, Urine Negative Negative LAB URINALYSIS - AUTOMATED METHOD 10/30/2024 5:[address] [facility] Blood, Urine Negative Negative LAB URINALYSIS - AUTOMATED METHOD 10/30/2024 5:[address] [facility] RBC, Urine 4.0 0 - 4 /HPF LAB URINALYSIS - AUTOMATED METHOD 10/30/2024 5:[address] [facility] WBC, Urine 52.6(H) 0 - 4 /HPF LAB URINALYSIS - AUTOMATED METHOD 10/30/2024 5:[address] [facility] Squamous Epithelial, Urine 29 0 - 60 /LPF LAB URINALYSIS - AUTOMATED METHOD 10/30/2024 5:[address] [facility] Bacteria, Urine Many(A) Negative /HPF LAB URINALYSIS - AUTOMATED METHOD 10/30/2024 5:[address] [facility] Hyaline Casts, Urine 0.4 0 - 3 /LPF LAB URINALYSIS - AUTOMATED METHOD 10/30/2024 5:[address] [facility] Urine Urine specimen obtained by clean catch procedure / Unknown Non-blood Collection / Unknown 10/30/2024 12:45 PM EST 10/30/2024 2:55 PM EST Chai Carias MD LAB URINE ORDERABLES Final Resul t [facility] [address] [place] [address], * (ABNORMAL) Culture urine (10/30/2024 12:45 PM EST) Culture, Urine >100,000 CFU/mL Escherichia coli(A) NADER 11/01/2024 11:[address] [facility] Urine Urine specimen obtained by clean catch procedure / Unknown Non-blood Collection / Unknown 10/30/2024 12:45 PM EST 10/30/2024 3:[address] [facility] - 11/01/2024 11:05 AM EST Additional colony types present in insignificant amounts. Organism Antibiotic Method Susceptibility Escherichia coli Amoxicillin/Clavulanate NADER 16 ug/ml: Intermediate Escherichia coli Ampicillin/Sulbactam NADER >=32 ug/ml: Resistant Escherichia coli Piperacillin/Tazobactam NADER 8 ug/ml: Susceptible Escherichia coli Cefazolin (Urine) NADER 8 ug/ml: Susceptible Escherichia coli Cefoxitin NADER <=4 ug/ml: Susceptible Escherichia coli Ceftazidime NADER <=0.5 ug/ml: Susceptible Escherichia coli Ceftriaxone NADER <=0.25 ug/ml: Susceptible Escherichia coli Cefepime NADER <=0.12 ug/ml: Susceptible Escherichia coli Meropenem NADER <=0.25 ug/ml: Susceptible Escherichia coli Amikacin NADER 2 ug/ml: Susceptible Escherichia coli Gentamicin NADER <=1 ug/ml: Susceptible Escherichia coli Ciprofloxacin NADER <=0.06 ug/ml: Susceptible Escherichia coli Levofloxacin NADER <=0.12 ug/ml: Susceptible Escherichia coli Nitrofurantoin NADER <=16 ug/ml: Susceptible Escherichia coli Trimethoprim/Sulfamethoxazole NADER <=20 ug/ml: Susceptible us Chai Carias MD LAB MICROBIOLOGY - GENERAL ORDER CHANTELLE Final Result Performing Organization Address City/State/[facility] Co de Phone Number [facility] [address] [place] [address], [place] [phone] from Last 3 Months Insurance MEDICARE [employer] MEDICARE Care Teams Senior Analyst Developer Relationship Specialty Start Date End Date Chai Carias MD [address] [place] [address] [address] ANIKA Chu PCP - General Internal Medicine 11/20/24
--- OUTSIDE RECORDS SUMMARY | 2025-01-03 17:40 | XMS_ITS | Encounter Summary ---
Author Organization [facility] Address [address] [place] [address] Care Team Providers Care Endoscopy Technician Name Role Phone Chai Carias MD Primary Care Provider [phone] Encounter Details Date Type Department Care Team (Late st Contact Info) Description 12/24/2024 Lab Requisition [facility] [address] [place] [address] Chai Carias MD [address] [place] [address] [address] [place] Other hyperlipidemia; Other specified hypothyroidism; Vitamin D deficiency, unspecified Social History Tobacco Use Types Packs/Day Years Used Date Smoking Tobacco: Never Assessed Comments Unknown Sex and Gender Information Value Date Recorded Sex Assigned at Not on file Legal Sex Female 3:40 PM EDT Gender Identity Not on file Sexual Orientation Not on file documented as of this encounter Plan of Treatment Not on file documented as of this encounter Procedures Procedure Name Priority Date/Time Associated Diagnosis Comments LIPID PANEL WITH REFLEX TO DIRECT LDL Routine 12/24/2024 6:50 AM EST Other hyperlipidemia Other specified hypothyroidism Vitamin D deficiency, unspecified VITAMIN D 25 HYDROXY Routine 12/24/2024 6:50 AM EST Other hyperlipidemia Other specified hypothyroidism Vitamin D deficiency, unspecified THYROID STIMULATING HORMONE Routine 12/24/2024 6:50 AM EST Other hyperlipidemia Other specified hypothyroidism Vitamin D deficiency, unspecified documented in this encounter Results * (ABNORMAL) Vitamin D 25 hydroxy (12/24/2024 6:50 AM EST) Vit D, 25-Hydroxy 80.5(H) 30.0 - 80.0 ng/mL LAB CHEMISTRY METHOD 12/24/2024 8:37 AM EST [facility] Blood Venous blood specimen / Unknown 12/24/2024 6:50 AM EST 12/24/2024 7:47 AM EST us Chai Carias MD LAB BLOOD ORDERABLES Final Resul t Performing Organization Address [facility]/ZIP Co de Phone Number [facility] [address] [place] [address], [place] [phone] * Thyroid stimulating hormone (12/24/2024 6:50 AM EST) TSH 2.16 0.40 - 4.00 mcIU/mL LAB CHEMISTRY METHOD 12/24/2024 8:37 AM EST [facility] Blood Venous blood specimen / Unknown 12/24/2024 6:50 AM EST 12/24/2024 7:47 AM EST us Chai Carias MD LAB BLOOD ORDERABLES Final Resul t Performing Organization Address [facility] Co de Phone Number [facility] [address] [place] [address], [place] [phone] * Lipid panel with reflex to direct LDL (12/24/2024 6:50 AM EST) Cholesterol 139 0 - 200 mg/dL LAB CHEMISTRY METHOD 12/24/2024 8:27 AM [facility] Triglycerides 130 0 - 150 mg/dL LAB CHEMISTRY METHOD 12/24/2024 8:27 AM [facility] HDL 50 >=40 mg/dL LAB CHEMISTRY METHOD 12/24/2024 8:27 AM [facility] LDL Calculated 63 0 - 100 mg/dL LAB CHEMISTRY METHOD 12/24/2024 8:27 AM [facility] VLDL Cholesterol Josiah 26 mg/dL LAB CHEMISTRY METHOD 12/24/2024 8:27 AM EST [facility] Non HDL Chol. (LDL+VLDL) 89 <145 mg/dL LAB CHEMISTRY METHOD 12/24/2024 8:27 AM EST [facility] Chol/HDL Ratio 2.8 0.0 - 4.4 LAB CHEMISTRY METHOD 12/24/2024 8:27 AM EST [facility] Blood Venous blood specimen / Unknown 12/24/2024 6:50 AM EST 12/24/2024 7:47 AM EST us Chai Carias MD LAB BLOOD ORDERABLES Final Resul t [facility] [address] [place] [address], [place] [phone] documented in this encounter Visit Diagnoses Diagnosis Other hyperlipidemia Other specified hypothyroidism Vitamin D deficiency, unspecified documented in this encounter Care Teams Endoscopy Technician Relationship Specialty Start Date End Date Chai Carias MD [address] [place] [address] Dr [address] [place] PCP - General Internal Medicine 11/20/24 documented as of this encounter
--- OUTSIDE RECORDS SUMMARY | 2025-01-03 17:40 | XMS_ITS | Encounter Summary ---
Author Organization [facility] Address [address] [place] [address] Care Team Providers Care Senior Linux Unix Administrator Name Role Phone Chai Carias MD Primary Care Provider Encounter Details Date Type Department Care Team (Late st Contact Info) Description 10/30/2024 Lab Requisition [facility] Lab [address] [place] [address] Chai Carias MD [address] [place] [address] [address] [place] Mixed incontinence Social History Tobacco Use Types Packs/Day Years [...] Procedure Name Priority Date/Time Associated Diagnosis Comments URINALYSIS WITH REFLEX MICROSCOPIC Routine 10/30/2024 12:45 PM EST Mixed incontinence URINALYSIS WITH REFLEX MICROSCOPIC Routine 10/30/2024 12:45 PM EST Mixed incontinence CULTURE URINE Routine 10/30/2024 12:45 PM EST Mixed incontinence documented in this encounter Results * (ABNORMAL) Urinalysis with reflex microscopic (10/30/2024 12:45 PM EST) Specific [place] Urine 1.012 1.003 - 1.030 LAB URINALYSIS - AUTOMATED METHOD 10/30/2024 5:14 PM EST [facility] pH, Urine 6.0 5.0 - 8.0 pH LAB URINALYSIS - AUTOMATED METHOD 10/30/2024 5:14 PM EST [facility] Leukocytes, Urine Moderate(A) Negative LAB URINALYSIS - AUTOMATED METHOD 10/30/2024 5:14 PM [facility] Nitrite, Urine Positive(A) Negative LAB URINALYSIS - AUTOMATED METHOD 10/30/2024 5:14 PM [facility] Protein, Urine Negative <=Trace mg/dL LAB URINALYSIS - AUTOMATED METHOD 10/30/2024 5:14 PM [facility] Glucose, Urine Negative Negative mg/dL LAB URINALYSIS - AUTOMATED METHOD 10/30/2024 5:14 PM [facility] Ketones, Urine Negative Negative mg/dL LAB URINALYSIS - AUTOMATED METHOD 10/30/2024 5:14 PM [facility] Urobilinogen , Urine 1.0 0.2 - 1.0 mg/dL LAB URINALYSIS - AUTOMATED METHOD 10/30/2024 5:14 PM [facility] Bilirubin, Urine Negative Negative LAB URINALYSIS - AUTOMATED METHOD 10/30/2024 5:14 PM [facility] Blood, Urine Negative Negative LAB URINALYSIS - AUTOMATED METHOD 10/30/2024 5:14 PM [facility] RBC, Urine 4.0 0 - 4 /HPF LAB URINALYSIS - AUTOMATED METHOD 10/30/2024 5:14 PM [facility] WBC, Urine 52.6(H) 0 - 4 /HPF LAB URINALYSIS - AUTOMATED METHOD 10/30/2024 5:14 PM [facility] Squamous Epithelial, Urine 29 0 - 60 /LPF LAB URINALYSIS - AUTOMATED METHOD 10/30/2024 5:14 PM [facility] Bacteria, Urine Many(A) Negative /HPF LAB URINALYSIS - AUTOMATED METHOD 10/30/2024 5:14 PM [facility] Hyaline Casts, Urine 0.4 0 - 3 /LPF LAB URINALYSIS - AUTOMATED METHOD 10/30/2024 5:14 PM EST [facility] Urine Urine specimen obtained by clean catch procedure / Unknown Non-blood Collection / Unknown 10/30/2024 12:45 PM EST 10/30/2024 2:55 PM EST us Chai Carias MD LAB URINE ORDERABLES Final Resul t [facility] [address] [place] [address], * (ABNORMAL) Culture urine (10/30/2024 12:45 PM EST) Culture, Urine >100,000 CFU/mL Escherichia coli(A) NADER 11/01/2024 11:05 AM EST [facility] Urine Urine specimen obtained by clean catch procedure / Unknown Non-blood Collection / Unknown 10/30/2024 12:45 PM EST 10/30/2024 3:14 PM EST Narrative [facility] - 11/01/2024 11:05 AM EST [...] MICROBIOLOGY - GENERAL ORDER CHANTELLE Final Result [facility] ([facility]) [facility] [address] [place] [address], documented in this encounter Visit Diagnoses Diagnosis Mixed incontinence Mixed incontinence urge and stress (male)(female) documented in this encounter Care Teams Senior Linux Unix Administrator Relationship Specialty Start Date End Date Chai Carias MD [address] [place] [address] Dr [address] [place], [place] PCP - General Internal Medicine 11/20/24 documented as of this encounter
--- OUTSIDE RECORDS SUMMARY | 2025-01-03 17:40 | XMS_ITS | Encounter Summary ---
Author Organization [facility] Address [address] [place] [address] Care Team Providers Care Adjunct English Instructor Name Role Phone Chai Carias MD Primary Care Provider [phone] Encounter Details Date Type Department Care Team (Late st Contact Info) Description 11/27/2024 Lab Requisition [facility] Lab [address] [place] [address] Chai Carias MD [address] [place] [address] [address] [place] Type 2 diabetes mellitus with unspecified complications (CMS/HCC) Social History Tobacco Use Types Packs/Day Years [...] Procedure Name Priority Date/Time Associated Diagnosis Comments COMPLETE BLOOD COUNT Routine 11/27/2024 7:01 AM EST Type 2 diabetes mellitus with unspecified complications (CMS/HCC) HEMOGLOBIN A1C Routine 11/27/2024 7:01 AM EST Type 2 diabetes mellitus with unspecified complications (CMS/HCC) COMPREHENSIVE METABOLIC PANEL Routine 11/27/2024 7:01 AM EST Type 2 diabetes mellitus with unspecified complications (CMS/HCC) documented in this encounter Results * (ABNORMAL) Complete blood count (11/27/2024 7:01 AM EST) WBC 8.6 4.8 - 10.8 K/mcL LAB HEMETOLOGY METHOD 11/27/2024 8:11 AM EST [facility] ([facility]) [facility] RBC 3.70(L) 3.80 - 4.80 M/mcL [...] ORDERABLES Final Resul t Performing Organization Address [facility]/ZIP Co de Phone Number [facility] [address] [place] [address], [place] [phone] * Hemoglobin A1c (11/27/2024 7:01 AM EST) Pathologist [facility] Hemoglobin A1C 5.9 <6.5 % LAB CHEMISTRY METHOD 11/27/2024 2:05 PM EST [facility] Mean Bld Glu Estim. 123 mg/dL LAB CHEMISTRY METHOD 11/27/2024 2:[address] [facility] Blood Venous blood specimen / Unknown 11/27/2024 7:01 AM EST 11/27/2024 8:05 AM EST us Chai Carias MD LAB BLOOD ORDERABLES Final Resul t Performing Organization Address [facility] Co de Phone Number [facility] [address] [place] [address], [place] [phone] * (ABNORMAL) Comprehensive metabolic panel (11/27/2024 7:01 AM EST) [facility] Sodium 138 133 - 145 mmol/L LAB [...] 7:01 AM EST 11/27/2024 8:05 AM EST Chai Carias MD LAB BLOOD ORDERABLES Final Resul t [facility] [address] [place] [address], documented in this encounter Visit Diagnoses Diagnosis Type 2 diabetes mellitus with unspecified complications (CMS/HCC) documented in this encounter Care Teams Adjunct English Instructor Relationship Specialty Start Date End Date Chai Carias MD [address] [place] [address] Dr [address] [place], [place] PCP - General Internal Medicine 11/20/24 documented as of this encounter
--- OUTSIDE RECORDS SUMMARY | 2025-01-03 17:40 | XMS_ITS | Continuity of Care Document ---
Author Organization [facility] Address [address] [address] Phone Care Team Providers Care Grain Processor Name Role Phone Floresita ERVINAkil Unavailable Unavailable [...] Providers Copied on Encounter OFFICE/OUTPA TIENT VISIT, [facility] , [address], [facility], tel:[phone] [place] decreased vision (chief complaint) achiness (chief complaint) Exdtve age-rel mclr degn, right eye, with actv chrdl neovas Sep-2 9 Floresita Barnard. [address] [facility] Suite [facility], [place], [place], [facility], [place]. tel:[phone] OFFICE/OUTPA TIENT VISIT, [facility] , [address], [facility], tel:[phone] [place] floaters (chief complaint) pressure, pain (chief complaint) Vitreous degeneration, left eyePresbyopia 9 Floresita Barnard. [address] [place] [address], [address], [facility], [place]. tel:[phone] [facility] , [address] [place] [address], [address], tel:[phone] [place] floaters (chief complaint) Vitreous degeneration, left eye 9 Floresita Barnard. [address] [place] [address], [address], [facility], . tel:[phone] OFFICE/OUTPA TIENT VISIT, [facility] , [address], [facility], [place] tel:[phone] [place] No Information Oct-0 9201 7 Yevgeniy Valencia [address] [place] [address], [address] [place] [address], [facility], [place]. tel:[phone] [facility] , [address], 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, . tel:[phone] [facility] , [address] [place] [address], 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 [address], [facility], . tel:[phone] [facility] , [address] [place] [address], [facility], tel:[phone] [place] decreased vision (chief complaint) PresbyopiaAge-re lated nuclear cataract, bilateralOpen angle with borderline findings, low risk, bilateral Feb-2 7 Floresita Barnard. [address] [place] [address], [facility], . tel:[phone] Family History Family Member Type Diagnosis Age At Onset Mother Problem (finding) diabetes melli tus in first degree relative Payers Payer name Insurance type Covered libertarian ID Authoriza tiranulfo(s) [id number] Social History Type Description Quantity Date Captured [...] Ayala MD [address] [place], [address] [phone] Ordered: Referrals: Kacie Ayala MD. Consult ordered [...] HEBERT. Patient seen emergently today. referred from [facility] with sudden and profound loss of [...] degn, right eye, with actv chrdl neovas return for refraction check prn Related to Presbyopia 8 months for dfe OU Related to V itreous degeneration, left eye Impression/Plan Related to Vitre [...] acute process. Patient is a resident at [facility] and here with legal guardian [...]
== END 2025-01-03 14:19 | disposition home or self-care (01) ==
LOC: HO.HPS 13:55
PROVIDERS: PCP Hospitalist; Visit Provider Internal Medicine Pulmonary Disease
DX: J44.9 Chronic obstructive pulmonary disease, unspecified (principal); G47.33 Obstructive sleep apnea (adult) (pediatric); Z87.891 Personal history of nicotine dependence
CPT/HCPCS: 99214; G2211

== ENCOUNTER → 2025-01-03 13:55 | Outpatient (BNVA) | payer MEDICARE, SELFPAY | PROVIDERS: PCP Hospitalist; Visit Provider Internal Medicine Pulmonary Disease | DX: J44.9 Chronic obstructive pulmonary disease, unspecified (principal); G47.33 Obstructive sleep apnea (adult) (pediatric); Z87.891 Personal history of nicotine dependence | CPT/HCPCS: 99212 ==

== ENCOUNTER 2025-01-23 08:36 | Outpatient (AMB) | payer MEDICARE, SELFPAY ==
--- NOTE | 2025-01-23 08:51 | A.OFFVIS_ITS ---
Intake Visit Reasons: 3m/US/PVR(set) Intake Note: Patient presents to office today for 3 month/US/PVR Urology Medications: none Blood Thinner: aspirin PVR: 0ml's Engraver Rubber Required: No Accompanied by: [facility] Allergies topiramate [From Topamax] Adverse Reaction (Intermediate, Verified 01/23/25 08:54) Unknown oxybutynin Adverse Reaction (Unknown, Verified 01/23/25 08:54) Unknown oxycodone Adverse Reaction (Unknown, Verified 01/23/25 08:54) Unknown tuberculin, purified protein deriva Adverse Reaction (Unknown, Verified 01/23/25 08:54) Unknown lithium Allergy (Severe, Uncoded 01/23/25 08:54) coma zyprexa Adverse Reaction (Unknown, Uncoded 01/23/25 08:54) Unknown Medication List - Last Reconciled 01/23/25 by VIANNEY Richardson acetaminophen 650 mg PO Q6H PRN albuterol sulfate 0.63 mg inhalation Q6H albuterol sulfate 90 mcg/actuation (Ventolin HFA) 2 puffs inhalation Q4-6H PRN aspirin 81 mg PO DAILY bisacodyl 10 mg AR DAILY PRN cholecalciferol (vitamin D3) 125 mcg PO DAILY diazepam (Valium) 2 mg PO BID PRN docusate sodium 100 mg PO DAILY ferrous sulfate 325 mg PO DAILY fluticasone propion-salmeterol 500-50 mcg/dose (Advair Diskus) 1 inh inhalation BID wffdxnmjnvw-zkwkxotcs-nqaseuuk 100-62.5-25 mcg (Trelegy Ellipta) 1 inh inhalation DAILY gabapentin 300 mg PO BID glucagon (GlucaGen HypoKit) 1 mg subcut Q20M PRN haloperidol 1 mg PO BID hydroxyzine HCl 50 mg PO TID insulin lispro (Humalog U-100 Insulin) 1 sliding scale dose subcut USEASDIRECTD levothyroxine 125 mcg PO DAILY loperamide 2 mg PO Q4H PRN losartan 25 mg PO DAILY meclizine 12.5 mg PO BID-QID PRN multivitamin 1 tab PO DAILY nystatin 1 appl topical BID omeprazole 40 mg PO DAILY ondansetron 4 mg PO Q8H pantoprazole 40 mg PO DAILY pyridoxine (vitamin B6) 50 mg PO DAILY risperidone 2 mg PO BID risperidone 2 mg PO BID rosuvastatin 5 mg PO DAILY semaglutide (Ozempic) 0.5 mg subcut QWEEK sennosides (senna) 8.6 mg PO DAILY sodium phosphates 19-7 gram/118 mL (Fleet Enema) 118 mL AR DAILY PRN venlafaxine ER 150 mg PO DAILY vibegron (Gemtesa) 75 mg PO DAILY 30 days vitamins A,C,E-mtrz-olmtof 4,296 mcg-226 mg-90 mg (PreserVision AREDS) 1 cap PO BID HPI Comments Details: Mattie is a pleasant 69-year-old female patient of Dr. Carias will resides at [facility] in his accompanied by Ladonna at today's office visit. She has a past medical history of persistent mood disorder, personality disorder, PTSD, COPD, anxiety, type 2 diabetes, obstructive sleep apnea, obesity, renal cysts, overactive bladder, incontinence, pulmonary embolism, hypothyroidism, hyperlipidemia, mild intellectual disability, GERD, polymyalgia rheumatica, and fibromyalgia. She presents to the office today for follow-up of her lower urinary tract symptoms. Of note, patient was seen approximately 5 months ago as a new patient at which time a retroperitoneal ultrasound was ordered for further assessment evaluation in the patient was started on Myrbetriq. Recent renal imaging results reviewed the patient today 12/18 bilateral kidneys are normal in size and echotexture. No hydronephrosis of either kidney. Urinary bladder is unremarkable. Bilateral ureteral jets are demonstrated. She reports initially upon initiation of Myrbetriq she had improvement in lower urinary tract symptoms. However, shortly after 2-3 weeks she felt very urinary tract symptoms reoccurred. She discussed with the patient today she reports when she lived in [place] she had a Silva catheter due to urinary incontinence. We discussed at length indications for Silva catheter. She continues to report urinary urgency and urinary frequency. We discussed further treatment options and risks and benefits of these treatment options. She also has a previous history of trialing pelvic floor therapy and did not find this helpful. Unable to obtain urine for urinalysis today however PVR 0 mL. She otherwise denies hematuria, dysuria, foul smelling urine, changes to urinary stream, flank pain, fever, and or chills. We discussed importance of weight management in relation to lower urinary tract symptoms as well as overall health and well-being. We also discussed importance of managing diabetes for improvement in lower urinary tract symptoms as well as overall health and well- being. We discussed bladder triggers and irritants. She otherwise offers no other issues or concerns at this time. [facility] Social History Patient Tobacco Use Status: Former Tobacco user Tobacco use type: Cigarette Years Smoked: quit december 2021, started at age 16, 1PPD Review of Systems Eyes Reports no additional complaints ENT Reports as per HPI Card Reports as per HPI Resp Reports as per HPI GI Reports as per HPI Reports as per HPI Musc Reports as per HPI Neuro Reports as per HPI Psych Reports as per HPI Endo Reports as per HPI Alexx/Lymph Reports no additional complaints Aller/Immun Reports no additional complaints Physical Exam Const General: cooperative, healthy appearing, comfortable, no acute distress, well developed, alert and awake Nutritional Appearance: obese Orientation/consciousness: patient oriented x3 Limitations: wheelchair HEENT Head: Yes normal to inspection, Yes normocephalic and Yes atraumatic Ears: hearing grossly normal bilaterally Eyes General: appearance normal, both eyes and all related structures Neck Neck: Yes normal visual inspection and Yes trachea midline Chest Chest palpation & inspection: normal inspection of the chest Resp Effort & Inspection: normal respiratory effort and able to speak in complete sentences Cardio Rate: regular rate GI Inspection: Yes normal to inspection General: Yes no CVA tenderness Back/Spine/Pelvis Back: no CVA tenderness Skin General skin exam: no rashes or lesions noted Neuro General: patient oriented x3 Extrem General: Yes normal to inspection Psych Appearance: grossly normal and well kempt Mental Status: mental status grossly normal Speech and movement: Normal speech and movement present and Clear speech present Affect: normal affect Attitude: cooperative Thought process: Normal thought process present Thought content: Normal thought content present Insight: Fair insight present (Psych) Judgement: Fair judgement present (Psych) Results Reviewed Results Reviewed: Date of Service: 12/04/24 Procedure(s): US retroperitoneal comp Findings: Right kidney normal size and echotexture, 10.3 cm length. Left kidney normal size and echotexture, 11.2 cm length. 9 mm benign upper pole cyst. No hydronephrosis of either kidney. Normal color Doppler. Urinary bladder is unremarkable. Prevoid volume 205 mL. Postvoid volume: Unable to physically ambulate to void therefore no postvoid evaluation is performed. Bilateral ureteral jets are visualized. IMPRESSION: 1. Normal kidneys. Assessment & Plan Assessment & Plan (1) Overactive bladder: Code(s): N32.81 - Overactive bladder Category: Medical (2) Urinary incontinence, mixed: Code(s): N39.46 - Mixed incontinence Category: Medical Plan Unable to obtain urine for urinalysis today however PVR 0 mL. Recent retroperitoneal ultrasound results with the patient today; as noted above. Stop Myrbetriq. Start Gemtesa as discussed and prescribed. We discussed further treatment options and risks and benefits of these treatment options. We discussed importance of weight loss in relation to lower urinary tract symptoms as well as overall health and well-being. We discussed importance of management and diabetes for improvement in lower urinary tract symptoms as well as overall health and well-being. We discussed bladder triggers/irritants. We discussed potential near future in office urodynamics for further assessment evaluation Follow-up in 1-3 months with PVR; or sooner with any issues, concerns, and or questions. Orders: Orders AMB Urinalysis Automated Today Z13.9 - Encounter for screening, unspecified AMB Post Void Residual by ultrasound Today N3.81 - Overactive bladder Medications: New vibegron (Gemtesa) 75 mg PO DAILY 30 tabs 3RF 30 days N3.81 - Overactive bladder Discontinued mirabegron ER (Myrbetriq) Discontinued Reason: Doctor's Order 25 mg PO DAILY 30 tabs 3RF 30 days N3.81 - Overactive bladder, R39.15 - Urgency of urination Patient Instructions: The patient had an opportunity to ask questions regarding the treatment plan. All questions were answered. Physical exam, labs, and imaging were discussed and reviewed in detail. As well as risks, benefits, and discussion of treatment choices. No major barriers to understanding were identified. The patient expressed understanding and agreement with the above treatment plan. The patient was made aware they should contact our office by phone for worsening of their current condition, the appearance of new symptoms, or with any questions or concerns. Compliance is encouraged with any medications and follow up testing that is ordered. It is a privilege to be allowed the opportunity to participate in? your urological care.? Again, if you have any questions or concerns If you have any questions or concerns please do not hesitate to contact me. The office is [phone]. This note is constructed using voice recognition software. While every effort has been made to ensure accuracy video editor errors may have been included. Yours sincerely, VIANNEY Richardson Coding Level of Care Code Est Pt Level 4 (41187) Diagnoses Overactive bladder N32.81 Urinary incontinence, mixed N39.46
--- OUTSIDE RECORDS SUMMARY | 2025-01-23 09:02 | XMS_ITS | Encounter Summary ---
Author Organization [facility] Address [address] [place] [address] Care Team Providers Care Mail Reader Name Role Phone Chai Carias MD Primary Care Provider [phone] Encounter Details Date Type Department Care Team (Late st Contact Info) Description 10/30/2024 Lab Requisition [facility] Lab [address] [place] [address] Chai Carias MD [address] [place] [address] [address] [place] Mixed incontinence Social History Tobacco Use Types [...] reflex microscopic (10/30/2024 12:45 PM EST) Specific [place] Urine 1.012 1.003 - 1.030 LAB URINALYSIS - AUTOMATED METHOD 10/30/2024 5:14 PM EST [facility] pH, Urine 6.0 5.0 - 8.0 pH LAB URINALYSIS - AUTOMATED METHOD 10/30/2024 5:14 PM EST [facility] Leukocytes, Urine Moderate(A) Negative LAB URINALYSIS - AUTOMATED METHOD 10/30/2024 5:14 PM [facility] Nitrite, Urine Positive(A) Negative LAB URINALYSIS - AUTOMATED METHOD 10/30/2024 5:14 PM [facility] Protein, Urine Negative <=Trace mg/dL LAB URINALYSIS - AUTOMATED METHOD 10/30/2024 5:14 PM [facility] Glucose, Urine Negative Negative mg/dL LAB URINALYSIS - AUTOMATED METHOD 10/30/2024 5:14 PM [facility] Ketones, Urine Negative Negative mg/dL LAB URINALYSIS - AUTOMATED METHOD 10/30/2024 5:14 PM [facility] Urobilinogen , Urine 1.0 0.2 - 1.0 mg/dL LAB URINALYSIS - AUTOMATED METHOD 10/30/2024 5:14 PM [facility] Bilirubin, Urine Negative Negative LAB URINALYSIS - AUTOMATED METHOD 10/30/2024 5:14 PM [facility] Blood, Urine Negative Negative LAB URINALYSIS - AUTOMATED METHOD 10/30/2024 5:14 PM [facility] RBC, Urine 4.0 0 - 4 /HPF LAB URINALYSIS - AUTOMATED METHOD 10/30/2024 5:14 PM [facility] WBC, Urine 52.6(H) 0 - 4 /HPF LAB URINALYSIS - AUTOMATED METHOD 10/30/2024 5:14 PM [facility] Squamous Epithelial, Urine 29 0 - 60 /LPF LAB URINALYSIS - AUTOMATED METHOD 10/30/2024 5:14 PM [facility] Bacteria, Urine Many(A) Negative /HPF LAB URINALYSIS - AUTOMATED METHOD 10/30/2024 5:14 PM [facility] Hyaline Casts, Urine 0.4 0 - 3 /LPF LAB URINALYSIS - AUTOMATED METHOD 10/30/2024 5:14 PM EST [facility] Urine Urine specimen obtained by clean catch procedure / Unknown Non-blood Collection / Unknown 10/30/2024 12:45 PM EST 10/30/2024 2:55 PM EST us Chai Carias MD LAB URINE ORDERABLES Final Resul t [facility] [address] [place] [address], * (ABNORMAL) Culture urine (10/30/2024 12:45 PM EST) Culture, Urine >100,000 CFU/mL Escherichia coli(A) NADER 11/01/2024 11:05 AM EST [facility] Urine Urine specimen obtained by clean catch procedure / Unknown Non-blood Collection / Unknown 10/30/2024 12:45 PM EST 10/30/2024 3:14 PM EST Narrative [facility] - 11/01/2024 11:05 AM EST [...] MICROBIOLOGY - GENERAL ORDER CHANTELLE Final Result [facility] ([facility] [address] [place] [address], documented in this encounter Visit Diagnoses Diagnosis Mixed incontinence Mixed incontinence urge and stress (male)(female) documented in this encounter Care Teams Mail Reader Relationship Specialty Start Date End Date Chai Carias MD [address] [place] [address] Dr [address] [place], [place] PCP - General Internal Medicine 11/20/24 documented as of this encounter
--- OUTSIDE RECORDS SUMMARY | 2025-01-23 09:02 | XMS_ITS | Encounter Summary ---
Author Organization [facility] Address [address] [place] [address] Care Team Providers Care Coffee Urn Attendant Name Role Phone Chai Carias MD Primary Care Provider [phone] Encounter Details Date Type Department Care Team (Late st Contact Info) Description 01/10/2025 Lab Requisition [facility] Lab [address] [place] [address] Chai Carias MD [address] [place] [address] [address] [place] Dysuria Social History Tobacco Use Types Packs/Day Years [...] Diagnosis Comments URINALYSIS WITH REFLEX MICROSCOPIC Routine 01/09/2025 7:00 PM EDT Dysuria URINALYSIS WITH REFLEX MICROSCOPIC Routine 01/09/2025 7:00 PM EDT Dysuria CULTURE URINE Routine 01/09/2025 7:00 PM EDT Dysuria documented in this encounter Results * (ABNORMAL) Urinalysis with reflex microscopic (01/09/2025 7:00 PM EDT) Specific [place] Urine 1.021 1.003 - 1.030 LAB URINALYSIS - AUTOMATED METHOD 01/10/2025 8:20 AM EDT [facility] LAB pH, Urine 5.5 5.0 - 8.0 pH LAB URINALYSIS - AUTOMATED METHOD 01/10/2025 8:20 AM EDT [facility] LAB Leukocytes, Urine Large(A) Negative LAB URINALYSIS - AUTOMATED METHOD 01/10/2025 8:20 AM [facility] LAB Nitrite, Urine Positive(A) Negative LAB URINALYSIS - AUTOMATED METHOD 01/10/2025 8:20 AM [facility] Protein, Urine Trace <=Trace mg/dL LAB URINALYSIS - AUTOMATED METHOD 01/10/2025 8:20 AM [facility] LAB Glucose, Urine Negative Negative mg/dL LAB URINALYSIS - AUTOMATED METHOD 01/10/2025 8:20 AM [facility] Ketones, Urine Negative Negative mg/dL LAB URINALYSIS - AUTOMATED METHOD 01/10/2025 8:20 AM [facility] LAB Urobilinogen , Urine 1.0 0.2 - 1.0 mg/dL LAB URINALYSIS - AUTOMATED METHOD 01/10/2025 8:20 AM [facility] LAB Bilirubin, Urine Negative Negative LAB URINALYSIS - AUTOMATED METHOD 01/10/2025 8:20 AM [facility] LAB Blood, Urine Negative Negative LAB URINALYSIS - AUTOMATED METHOD 01/10/2025 8:20 AM [facility] LAB RBC, Urine 1.0 0 - 4 /HPF LAB URINALYSIS - AUTOMATED METHOD 01/10/2025 8:20 AM [facility] LAB WBC, Urine 90.1(H) 0 - 4 /HPF LAB URINALYSIS - AUTOMATED METHOD 01/10/2025 8:20 AM [facility] LAB Squamous Epithelial, Urine 62(H) 0 - 60 /LPF LAB URINALYSIS - AUTOMATED METHOD 01/10/2025 8:20 AM [facility] LAB Crystals, Urine LT CALCIUM OXALATE /LPF LAB URINALYSIS - AUTOMATED METHOD 01/10/2025 8:20 AM [facility] LAB Bacteria, Urine Many(A) Negative /HPF LAB URINALYSIS - AUTOMATED METHOD 01/10/2025 8:20 AM EDT [facility] LAB Hyaline Casts, Urine 1.2 0 - 3 /LPF LAB URINALYSIS - AUTOMATED METHOD 01/10/2025 8:20 AM EDT [facility] LAB Urine Urine specimen obtained by clean catch procedure / Unknown 01/09/2025 7:00 PM EDT 01/10/2025 7:31 AM EDT us Chai Carias MD LAB URINE ORDERABLES Final Resul t Performing Organization Address City/[facility]/ZIP Co de Phone Number [facility] LAB [address] [place] [address], [place] [phone] * Culture urine (01/09/2025 7:00 PM EDT) Culture, Urine >100,000 CFU/mL Mixed bacterial morphotypes present suggestive of possible contamination during collection. Suggest appropriate recollection if clinically indicated. 01/11/2025 10:19 AM EDT [facility] LAB Urine Urine specimen obtained by clean catch procedure / Unknown 01/09/2025 7:00 PM EDT 01/10/2025 7:31 AM EDT us Chai Carias MD LAB MICROBIOLOGY - GENERAL ORDER CHANTELLE Final Result Performing Organization Address City/[facility]/ZIP Co de Phone Number [facility] [address] [place] [address], [place] [phone] documented in this encounter Visit Diagnoses Diagnosis Dysuria documented in this encounter Care Teams Coffee Urn Attendant Relationship Specialty Start Date End Date Chai Carias MD [address] [facility] [address] [place]strada [facility] ANIKA Chu PCP - General Internal Medicine 11/20/24 documented as of this encounter
--- OUTSIDE RECORDS SUMMARY | 2025-01-23 09:02 | XMS_ITS | Encounter Summary ---
Author Organization [facility] Address [address] [place] [address] Care Team Providers Care Manager Research And Development Name Role Phone Chai Carias MD Primary Care Provider [phone] Encounter Details Date Type Department Care Team (Late st Contact Info) Description 01/04/2025 Lab Requisition [facility] Lab [address] [facility] [place] [address] Chai Carias MD [address] [place] [address] Dr [address] [place] Personal history of pulmonary embolism Social History Tobacco Use Types Packs/Day Years [...] Procedure Name Priority Date/Time Associated Diagnosis Comments D-DIMER STAT 01/04/2025 5:15 PM EDT Personal history of pulmonary embolism documented in this encounter Results * D-Dimer (01/04/2025 5:15 PM EDT) D-Dimer, Quant (D-DU) <150 <=230 ng/mL DDU LAB COAGULATION METHOD 01/04/2025 6:23 PM EDT [facility] Blood Venous blood specimen / Unknown 01/04/2025 5:15 PM EDT 01/04/2025 6:09 PM EDT Narrative [facility] LAB - 01/04/2025 6:23 PM EDT D-Dimer <230 ng/mL (D-Dimer units) is the threshold for exclusion of DVT/PE. D-Dimer may be elevated in: Critically ill, severely infected, trauma patients, DIC, acute CVA, acute MO, unstable angina, AF, old age, , and smoking. D-Dimer may be decreased with: Initiation of heparin therapy and oral anticoagulants. Chai Carias MD LAB BLOOD ORDERABLES Final Resul t [facility] ([facility]) [facility] LAB [address] [place] [address], documented in this encounter Visit Diagnoses Diagnosis Personal history of pulmonary embolism documented in this encounter Care Teams Manager Research And Development Relationship Specialty Start Date End Date Chai Carias MD [address] [place] [address] Dr [address] [place], [place] PCP - General Internal Medicine 11/20/24 documented as of this encounter
--- OUTSIDE RECORDS SUMMARY | 2025-01-23 09:02 | XMS_ITS | Encounter Summary ---
Author Organization [facility] Address [address] [place] [address] Care Team Providers Care Vehicle Assembly Inspector Name Role Phone Chai Carias MD Primary Care Provider [phone] Encounter Details Date Type Department Care Team (Late st Contact Info) Description 12/24/2024 Lab Requisition [facility] - Main Lab [address] [place] [address] Chai Carias MD [address] [place] [address] [address] [place] Other hyperlipidemia; Other specified hypothyroidism; Vitamin D [...] LAB CHEMISTRY METHOD 12/24/2024 8:37 AM EST [facility] Blood Venous blood specimen / Unknown 12/24/2024 6:50 AM EST 12/24/2024 7:47 AM EST us Chai Carias MD LAB BLOOD ORDERABLES Final Resul t Performing Organization Address [facility]/ZIP Co de Phone Number [facility] LAB [address] [place] [address], [place] [phone] * Thyroid stimulating hormone (12/24/2024 6:50 AM EST) TSH 2.16 0.40 - 4.00 mcIU/mL LAB CHEMISTRY METHOD 12/24/2024 8:37 AM EST [facility] LAB Blood Venous blood specimen / Unknown 12/24/2024 6:50 AM EST 12/24/2024 7:47 AM EST us Chai Carias MD LAB BLOOD ORDERABLES Final Resul t Performing Organization Address [facility] Co de Phone Number [facility] LAB [address] [place] [address], [place] [phone] * Lipid panel with reflex to direct LDL (12/24/2024 6:50 AM EST) Cholesterol 139 0 - 200 mg/dL LAB CHEMISTRY METHOD 12/24/2024 8:27 AM [facility] LAB Triglycerides 130 0 - 150 mg/dL LAB CHEMISTRY METHOD 12/24/2024 8:27 AM [facility] LAB HDL 50 >=40 mg/dL LAB CHEMISTRY METHOD 12/24/2024 8:27 AM [facility] LAB LDL Calculated 63 0 - 100 mg/dL LAB CHEMISTRY METHOD 12/24/2024 8:27 AM [facility] LAB VLDL Cholesterol Josiah 26 mg/dL LAB CHEMISTRY METHOD 12/24/2024 8:27 AM EST [facility] LAB Non HDL Chol. (LDL+VLDL) 89 <145 mg/dL LAB CHEMISTRY METHOD 12/24/2024 8:27 AM EST [facility] LAB Chol/HDL Ratio 2.8 0.0 - 4.4 LAB CHEMISTRY METHOD 12/24/2024 8:27 AM EST [facility] LAB Blood Venous blood specimen / Unknown 12/24/2024 6:50 AM EST 12/24/2024 7:47 AM EST us Chai Carias MD LAB BLOOD ORDERABLES Final Resul t [facility] LAB [address] [place] [address], [place] [phone] documented in this encounter Visit Diagnoses Diagnosis Other hyperlipidemia Other specified hypothyroidism Vitamin D deficiency, unspecified documented in this encounter Care Teams Vehicle Assembly Inspector Relationship Specialty Start Date End Date Chai Carias MD [address] [place] [address] [address] [place] PCP - General Internal Medicine 11/20/24 documented as of this encounter
--- OUTSIDE RECORDS SUMMARY | 2025-01-23 09:02 | XMS_ITS | Encounter Summary ---
Author Organization [facility] Address [address] [place] [address] Care Team Providers Care Manager Financial Systems Name Role Phone Chia Carias MD Primary Care Provider [phone] Encounter Details Date Type Department Care Team (Late st Contact Info) Description 01/18/2025 Lab Requisition [facility] - Main Lab [address] [place] [address] Chai Carias MD [address] [place] [address] [address] [place] Altered mental status, unspecified Social History Tobacco Use Types Packs/Day [...] Diagnosis Comments URINALYSIS WITH REFLEX MICROSCOPIC Routine 01/18/2025 6:00 AM EDT Altered mental status, unspecified URINALYSIS WITH REFLEX MICROSCOPIC Routine 01/18/2025 6:00 AM EDT Altered mental status, unspecified CULTURE URINE Routine 01/18/2025 6:00 AM EDT Altered mental status, unspecified documented in this encounter Results * (ABNORMAL) Urinalysis with reflex microscopic (01/18/2025 6:00 AM EDT) Specific [place] Urine 1.015 1.003 - 1.030 LAB URINALYSIS - AUTOMATED METHOD 01/18/2025 7:22 AM EDT [facility] LAB pH, Urine 7.0 5.0 - 8.0 pH LAB URINALYSIS - AUTOMATED METHOD 01/18/2025 7:22 AM [facility] LAB Leukocytes, Urine Moderate(A) Negative LAB URINALYSIS - AUTOMATED METHOD 01/18/2025 7:22 AM [facility] LAB Nitrite, Urine Positive(A) Negative LAB URINALYSIS - AUTOMATED METHOD 01/18/2025 7:22 AM [facility] LAB Protein, Urine Negative <=Trace mg/dL LAB URINALYSIS - AUTOMATED METHOD 01/18/2025 7:22 AM [facility] LAB Glucose, Urine Negative Negative mg/dL LAB URINALYSIS - AUTOMATED METHOD 01/18/2025 7:22 AM [facility] LAB Ketones, Urine Negative Negative mg/dL LAB URINALYSIS - AUTOMATED METHOD 01/18/2025 7:22 AM [facility] LAB Urobilinogen , Urine 1.0 0.2 - 1.0 mg/dL LAB URINALYSIS - AUTOMATED METHOD 01/18/2025 7:22 AM [facility] LAB Bilirubin, Urine Negative Negative LAB URINALYSIS - AUTOMATED METHOD 01/18/2025 7:22 AM [facility] LAB Blood, Urine Negative Negative LAB URINALYSIS - AUTOMATED METHOD 01/18/2025 7:22 AM [facility] LAB RBC, Urine 0.8 0 - 4 /HPF LAB URINALYSIS - AUTOMATED METHOD 01/18/2025 7:22 AM [facility] LAB WBC, Urine 34.5(H) 0 - 4 /HPF LAB URINALYSIS - AUTOMATED METHOD 01/18/2025 7:22 AM [facility] LAB Squamous Epithelial, Urine 1 0 - 60 /LPF LAB URINALYSIS - AUTOMATED METHOD 01/18/2025 7:22 AM [facility] LAB Bacteria, Urine Many(A) Negative /HPF LAB URINALYSIS - AUTOMATED METHOD 01/18/2025 7:22 AM [facility] LAB Hyaline Casts, Urine 0.8 0 - 3 /LPF LAB URINALYSIS - AUTOMATED METHOD 01/18/2025 7:22 AM EDT [facility] LAB Urine Urine specimen from urinary conduit / Unknown 01/18/2025 6:00 AM EDT 01/18/2025 7:05 AM EDT us Chai Craias MD LAB URINE ORDERABLES Final Resul t [facility] LAB [address] [place] [address], [place] [phone] * (ABNORMAL) Culture urine (01/18/2025 6:00 AM EDT) Culture, Urine >100,000 CFU/mL Escherichia coli(A) NADER 01/20/2025 11:14 AM EDT [facility] LAB Comment: This is an edited result. Previous organism was Gram negative bacilli on 01/19/2025 at 0846 EDT. Culture, Urine 50,000-100,000 CFU/mL Escherichia coli(A) NADER 01/20/2025 11:14 AM EDT [facility] Comment: The organism value for this result has been updated. These results have been appended to the previously preliminary verified report. Urine Urine specimen from urinary conduit / Unknown 01/18/2025 6:00 AM EDT 01/18/2025 7:05 AM EDT Narrative Organism Antibiotic Method Susceptibility Escherichia coli Amoxicillin/Clavulanate NADER <=2 ug/ml: Susceptible Escherichia coli Ampicillin/Sulbactam NADER <=2 ug/ml: Susceptible Escherichia coli Piperacillin/Tazobactam NADER <=4 ug/ml: Susceptible Escherichia coli Cefazolin (Urine) NADER <=1 ug/ml: Susceptible Escherichia coli Cefoxitin NADER <=4 [...] Escherichia coli Trimethoprim/Sulfamethoxazole NADER <=20 ug/ml: Susceptible Escherichia coli Amoxicillin/Clavulanate NADER 16 ug/ml: Intermediate Escherichia coli Ampicillin/Sulbactam NADER >=32 ug/ml: Resistant Escherichia coli Piperacillin/Tazobactam NADER <=4 ug/ml: Susceptible Escherichia coli Cefazolin (Urine) NADER [...] ORDER CHANTELLE Final Result Performing Organization Address [facility]/State/[facility] Co de Phone Number [facility] [address] [place] [address], documented in this encounter Visit Diagnoses Diagnosis Altered mental status, unspecified documented in this encounter Care Teams Manager Financial Systems Relationship Specialty Start Date End Date Chai Carias MD [address] [place] [address] Dr [address] [place] [address] PCP - General Internal Medicine 11/20/24 documented as of this encounter
--- OUTSIDE RECORDS SUMMARY | 2025-01-23 09:02 | XMS_ITS | Clinical Summary ---
Author Organization [address] [facility] Address [address] [place] [address] Phone Care Team Providers Care Commercial Loan Closer Name Role Phone Chai Carias MD Primary Care Provider [phone] Encounters Date Type Department Care Team Description 01/18/2025 Lab Requisition [facility] Lab [address] [place] [phone] Chai Carias MD Altered mental status, unspecified 01/16/2025 Lab Requisition [facility] Lab [address] [place] [phone] Chai Carias MD Unspecified external cause status 01/10/2025 Lab Requisition [facility] Lab [address] [place] [phone] Chai Carias MD Dysuria 01/04/2025 Lab Requisition [facility] Lab [address] [place] [phone] Chai Carias MD Personal history of pulmonary embolism 12/24/2024 Lab Requisition [facility] Lab [address] [place] [phone] Chai Carias MD Other hyperlipidemia; Other specified hypothyroidism; Vitamin D deficiency, unspecified 11/27/2024 Lab Requisition [facility] Lab [address] [place] [address] Chai Carias MD Type 2 diabetes mellitus with unspecified complications ([facility]/HCC) 10/30/2024 Lab Requisition [facility] Main Lab [address] [place] [phone] Chai Carias MD Mixed incontinence from Last [...] Vaccine ( - 2023-2 5 season) 2024 Colorectal Cancer Screening: Colonoscopy 08/19/2024 Depression Screening 08/19/2024 Falls Risk Assessment 08/19/2024 Hepatitis C Screening 08/19/2024 Medicare Annual Wellness Visit 08/19/2024 Osteoporosis Screening (Bone Density Screening) 08/19/2024 Social Influencers of Health Screening 08/19/2024 Diabetes: Annual Urine Albumin-Creatinine Ratio (uACR) 11/27/2024 Diabetes: Blood Sugar Contro l Test (HGBA1C) 05/27/2025 11/27/2024 Influenza Vaccine (Season Ended) 2025 Diabetes: Annual GFR (Glomer ular Filtration Rate) 11/27/2025 11/27/2024 Cholesterol Screening (Lipid Panel) 12/24/2029 12/24/2024 RSV Immunization Adult Patie nts (1 - 1-dose 75+ series) 2032 HIB [...] status, unspecified URINALYSIS WITH REFLEX MICROSCOPIC Routine 01/09/2025 7:00 PM EDT Dysuria URINALYSIS WITH REFLEX MICROSCOPIC Routine 01/09/2025 7:00 PM EDT Dysuria CULTURE URINE Routine 01/09/2025 7:00 PM EDT Dysuria D-DIMER STAT 01/04/2025 5:15 PM EDT Personal history of pulmonary embolism VITAMIN D 25 HYDROXY Routine 12/24/2024 6:50 [...] Type 2 diabetes mellitus with unspecified complications ([facility]) URINALYSIS WITH REFLEX MICROSCOPIC Routine 10/30/2024 12:45 PM EST Mixed incontinence URINALYSIS WITH REFLEX MICROSCOPIC Routine 10/30/2024 12:45 PM EST Mixed incontinence CULTURE URINE Routine 10/30/2024 12:45 PM EST Mixed incontinence from Last 3 Months Results * (ABNORMAL) Urinalysis with reflex microscopic (01/18/2025 6:00 AM EDT) Only the most recent of3 resultswithin the time period is included. Pathologist [facility] [place] Specific [place] Urine 1.015 1.003 - 1.030 LAB URINALYSIS - AUTOMATED METHOD 01/18/2025 7:[address] [facility] pH, Urine 7.0 5.0 - 8.0 pH LAB URINALYSIS - AUTOMATED METHOD 01/18/2025 7:[address] [facility] Leukocytes, Urine Moderate(A) Negative LAB URINALYSIS - AUTOMATED METHOD 01/18/2025 7:[address] [facility] Nitrite, Urine Positive(A) Negative LAB URINALYSIS - AUTOMATED METHOD 01/18/2025 7:[address] [facility] Protein, Urine Negative <=Trace mg/dL LAB URINALYSIS - AUTOMATED METHOD 01/18/2025 7:[address] [facility] Glucose, Urine Negative Negative mg/dL LAB URINALYSIS - AUTOMATED METHOD 01/18/2025 7:[address] [facility] Ketones, Urine Negative Negative mg/dL LAB URINALYSIS - AUTOMATED METHOD 01/18/2025 7:[address] [facility] Urobilinogen , Urine 1.0 0.2 - 1.0 mg/dL LAB URINALYSIS - AUTOMATED METHOD 01/18/2025 7:22 AM EDT [facility] Bilirubin, Urine Negative Negative LAB URINALYSIS - AUTOMATED METHOD 01/18/2025 7:22 AM EDT [facility] Blood, Urine Negative Negative LAB URINALYSIS - AUTOMATED METHOD 01/18/2025 7:[address] [facility] RBC, Urine 0.8 0 - 4 /HPF LAB URINALYSIS - AUTOMATED METHOD 01/18/2025 7:22 AM EDT [facility] WBC, Urine 34.5(H) 0 - 4 /HPF LAB URINALYSIS - AUTOMATED METHOD 01/18/2025 7:[address] [facility] Squamous Epithelial, Urine 1 0 - 60 /LPF LAB URINALYSIS - AUTOMATED METHOD 01/18/2025 7:[address] [facility] Bacteria, Urine Many(A) Negative /HPF LAB URINALYSIS - AUTOMATED METHOD 01/18/2025 7:[address] [facility] Hyaline Casts, Urine 0.8 0 - 3 /LPF LAB URINALYSIS - AUTOMATED METHOD 01/18/2025 7:[address] [facility] Urine Urine specimen from urinary conduit / Unknown 01/18/2025 6:00 AM EDT 01/18/2025 7:05 AM EDT us Chai Carias MD LAB URINE ORDERABLES Final Resul t [facility] [address] [place] [address], * (ABNORMAL) Culture urine (01/18/2025 6:00 AM EDT) Only the most recent of3 resultswithin the time period is included. Culture, Urine >100,000 CFU/mL Escherichia coli(A) NADER 01/20/2025 11:14 AM EDT [facility] Comment: This is an edited result. Previous organism was Gram negative bacilli on 01/19/2025 at 0846 EDT. Culture, Urine 50,000-100,000 CFU/mL Escherichia coli(A) NADER 01/20/2025 11:14 AM EDT [facility] Comment: The organism value for this [...] ORDER CHANTELLE Final Result Performing Organization Address [facility] Co de Phone Number [facility] [address] [place] [address], [place] [phone] * D-Dimer (01/04/2025 5:15 PM EDT) D-Dimer, Quant (D-DU) <150 <=230 ng/mL DDU LAB COAGULATION METHOD 01/04/2025 6:23 PM EDT [facility] Blood Venous blood specimen / Unknown 01/04/2025 5:15 PM EDT 01/04/2025 6:09 PM EDT Narrative [facility] - 01/04/2025 6:23 PM EDT D-Dimer <230 ng/mL (D-Dimer units) is the threshold for exclusion of DVT/PE. D-Dimer may be elevated in: Critically ill, severely infected, trauma patients, DIC, acute CVA, acute CO, unstable angina, AF, old age, , and smoking. D-Dimer may be decreased with: Initiation of heparin therapy and oral anticoagulants. us Chai Carias MD LAB BLOOD ORDERABLES Final Resul t Performing Organization Address [facility]/ZIP Co de Phone Number [facility] [address] [place] [address], [place] [phone] * Lipid panel with reflex to direct LDL (12/24/2024 6:50 AM EST) Cholesterol 139 0 - 200 mg/dL LAB CHEMISTRY METHOD 12/24/2024 8:27 AM EST [facility] Triglycerides 130 0 - 150 mg/dL LAB CHEMISTRY METHOD 12/24/2024 8:27 AM [facility] HDL 50 >=40 mg/dL LAB CHEMISTRY METHOD 12/24/2024 8:27 AM [facility] LDL Calculated 63 0 - 100 mg/dL LAB CHEMISTRY METHOD 12/24/2024 8:27 AM [facility] VLDL Cholesterol Josiah 26 mg/dL LAB CHEMISTRY METHOD 12/24/2024 8:27 AM [facility] Non HDL Chol. (LDL+VLDL) 89 <145 mg/dL LAB CHEMISTRY METHOD 12/24/2024 8:27 AM [facility] Chol/HDL Ratio 2.8 0.0 - 4.4 LAB CHEMISTRY METHOD 12/24/2024 8:27 AM [facility] Blood Venous blood specimen / Unknown 12/24/2024 6:50 AM EST 12/24/2024 7:47 AM EST us Chai Carias MD LAB BLOOD ORDERABLES Final Resul t Performing Organization Address [facility]/ZIP Co de Phone Number [facility] [address] [place] [address], * (ABNORMAL) Vitamin D 25 hydroxy (12/24/2024 6:50 AM EST) Vit D, 25-Hydroxy 80.5(H) 30.0 - 80.0 ng/mL LAB CHEMISTRY METHOD 12/24/2024 8:37 AM [facility] Blood Venous blood specimen / Unknown 12/24/2024 6:50 AM EST 12/24/2024 7:47 AM EST us Chai Carias MD LAB BLOOD ORDERABLES Final Resul t Performing Organization Address City/[facility]/ZIP Co de Phone Number [facility] [address] [place] [address], * Thyroid stimulating hormone (12/24/2024 6:50 AM EST) Pathologist [facility] [place] TSH 2.16 0.40 - 4.00 mcIU/mL LAB CHEMISTRY METHOD 12/24/2024 8:37 AM EST [facility] Blood Venous blood specimen / Unknown 12/24/2024 6:50 AM EST 12/24/2024 7:47 AM EST Chai Carias MD LAB BLOOD ORDERABLES Final Resul t [facility] [address] [place] [address], * (ABNORMAL) Complete blood count (11/27/2024 7:01 AM EST) [facility] WBC 8.6 4.8 - 10.8 K/mcL LAB HEMETOLOGY METHOD 11/27/2024 8:11 AM [facility] RBC 3.70(L) 3.80 - 4.80 M/mcL LAB HEMETOLOGY METHOD 11/27/2024 8:11 AM [facility] Hemoglobin 10.2(L) 11.5 - 16.0 g/dL LAB HEMETOLOGY METHOD 11/27/2024 8:11 AM [facility] Hematocrit 31.8(L) 35.0 - 47.0 % LAB HEMETOLOGY METHOD 11/27/2024 8:11 AM [facility] MCV 86.2 79.0 - 98.0 FL LAB HEMETOLOGY METHOD 11/27/2024 8:11 AM [facility] MCH 27.6 27.0 - 32.0 pcg LAB HEMETOLOGY METHOD 11/27/2024 8:11 AM [facility] MCHC 32.1 32.0 - 37.0 g/dL LAB HEMETOLOGY METHOD 11/27/2024 8:11 AM EST [facility] RDW 16.3(H) 11.0 - 15.0 % LAB HEMETOLOGY METHOD 11/27/2024 8:11 AM [facility] Platelets 206 130 - 400 K/mcL LAB HEMETOLOGY METHOD 11/27/2024 8:11 AM [facility] MPV 9.9 7.0 - 11.0 FL LAB HEMETOLOGY METHOD 11/27/2024 8:11 AM EST [facility] NRBC 0.0 <1.0 % LAB HEMETOLOGY METHOD 11/27/2024 8:11 AM [facility] NRBC Absolute 0.00 <0.10 K/mcL LAB HEMETOLOGY METHOD 11/27/2024 8:11 AM [facility] Blood Venous blood specimen / Unknown 11/27/2024 7:01 AM EST 11/27/2024 8:05 AM EST us Chai Carias MD LAB BLOOD ORDERABLES Final Resul t [facility] [address] [place] [address], [place] [phone] * Hemoglobin A1c (11/27/2024 7:01 AM EST) Hemoglobin A1C 5.9 <6.5 % LAB CHEMISTRY METHOD 11/27/2024 2:05 PM EST [facility] Mean Bld Glu Estim. 123 mg/dL LAB CHEMISTRY METHOD 11/27/2024 2:05 PM EST [facility] Blood Venous blood specimen / Unknown 11/27/2024 7:01 AM EST 11/27/2024 8:05 AM EST us Chai Carias MD LAB BLOOD ORDERABLES Final Resul t [facility] [address] [place] [address], * (ABNORMAL) Comprehensive metabolic panel (11/27/2024 7:01 AM EST) Sodium 138 133 - 145 mmol/L LAB CHEMISTRY METHOD 11/27/2024 8:37 AM [facility] Potassium 4.2 3.5 - 5.5 mmol/L LAB CHEMISTRY METHOD 11/27/2024 8:37 AM [facility] Chloride 105 96 - 110 mmol/L LAB CHEMISTRY METHOD 11/27/2024 8:37 AM [facility] CO2 25 21 - 32 mmol/L LAB CHEMISTRY METHOD 11/27/2024 8:37 AM [facility] Anion Gap 8 3 - 11 LAB CHEMISTRY METHOD 11/27/2024 8:37 AM [facility] Glucose 86 70 - 100 mg/dL LAB CHEMISTRY METHOD 11/27/2024 8:37 AM [facility] BUN 16 5 - 25 mg/dL LAB CHEMISTRY METHOD 11/27/2024 8:37 AM [facility] Creatinine 0.76 0.50 - 1.10 mg/dL LAB CHEMISTRY METHOD 11/27/2024 8:37 AM [facility] eGFR 86 >=60 mL/min/1. 73m2 LAB CHEMISTRY METHOD 11/27/2024 8:37 AM [facility] Comment:Calculation based on the??Chronic Kidney Disease Epidemiology Collaboration (CKD-EPI) equation refit??without adjustment for race. BUN/Creatinine Ratio 21.1 LAB CHEMISTRY METHOD 11/27/2024 8:37 AM [facility] Calcium 8.8 8.5 - 10.5 mg/dL LAB CHEMISTRY METHOD 11/27/2024 8:37 AM [facility] AST (SGOT) 31 10 - 42 unit/L LAB CHEMISTRY METHOD 11/27/2024 8:37 AM [facility] ALT (SGPT) 23 10 - 60 unit/L LAB CHEMISTRY METHOD 11/27/2024 8:37 AM [facility] Alkaline Phosphatase 128(H) 42 - 121 unit/L LAB CHEMISTRY METHOD 11/27/2024 8:37 AM [facility] Total Protein 6.8 6.0 - 8.0 g/dL LAB CHEMISTRY METHOD 11/27/2024 8:37 AM [facility] Albumin 3.0(L) 3.2 - 5.0 g/dL LAB CHEMISTRY METHOD 11/27/2024 8:37 AM [facility] Total Bilirubin 0.4 0.0 - 1.4 mg/dL LAB CHEMISTRY METHOD 11/27/2024 8:37 AM [facility] Blood Venous blood specimen / Unknown 11/27/2024 7:01 AM EST 11/27/2024 8:05 AM EST us Chai Carias MD LAB BLOOD ORDERABLES Final Resul t [facility] [address] [place] [address], from Last 3 Months Insurance MEDICARE [employer] MEDICARE Care Teams Commercial Loan Closer Relationship Specialty Start Date End Date Chai Carias MD [address] [place] [address] Dr [address] [place] PCP - General Internal Medicine 11/20/24
--- OUTSIDE RECORDS SUMMARY | 2025-01-23 09:02 | XMS_ITS | Encounter Summary ---
Author Organization [facility] Address [address] [place] [address] Care Team Providers Care Hide Curer Name Role Phone Chai Carias MD Primary Care Provider [phone] Encounter Details Date Type Department Care Team (Late st Contact Info) Description 01/16/[address] [facility] - Main Lab [address] [facility] [place] [address] Chai Carias MD [address] [place] [address] [address] [place] Unspecified external cause status Social History Tobacco Use Types Packs/Day Years Used Date Smoking Tobacco: Never Assessed Comments Unknown Sex and Gender Information Value Date Recorded Sex Assigned at Not on file Legal Sex Female 3:40 PM EDT Gender Identity Not on file Sexual Orientation Not on file documented as of this encounter Plan of Treatment Not on file documented as of this encounter Visit Diagnoses Diagnosis Unspecified external cause status documented in this encounter Care Teams Hide Curer Relationship Specialty Start Date End Date Chai Carias MD [address] [place] [address] Dr [address] [place] PCP - General Internal Medicine 11/20/24 documented as of this encounter
--- OUTSIDE RECORDS SUMMARY | 2025-01-23 09:02 | XMS_ITS | Encounter Summary ---
Author Organization [facility] Address [address] [place] [address] Care Team Providers Care Business Solutions Director Name Role Phone Chai Carias MD Primary Care Provider [phone] Encounter Details Date Type Department Care Team (Late st Contact Info) Description 11/27/2024 Lab Requisition [facility] - Main Lab [address] [place] [address] Chai Carias MD [address] [place] [address] [address] [place] [address] Type 2 diabetes mellitus with unspecified complications [...] LAB HEMETOLOGY METHOD 11/27/2024 8:11 AM EST [facility] ([facility]) [facility] RBC 3.70(L) 3.80 - 4.80 M/mcL LAB HEMETOLOGY METHOD 11/27/2024 8:11 AM [facility] Hemoglobin 10.2(L) 11.5 - 16.0 g/dL LAB HEMETOLOGY METHOD 11/27/2024 8:11 AM [facility] Hematocrit 31.8(L) 35.0 - 47.0 % LAB HEMETOLOGY METHOD 11/27/2024 8:11 AM [facility] MCV 86.2 79.0 - 98.0 FL LAB HEMETOLOGY METHOD 11/27/2024 8:11 AM [facility] MCH 27.6 27.0 - 32.0 pcg LAB HEMETOLOGY METHOD 11/27/2024 8:11 AM [facility] LAB MCHC 32.1 32.0 - 37.0 g/dL LAB HEMETOLOGY METHOD 11/27/2024 8:11 AM [facility] RDW 16.3(H) 11.0 - 15.0 % LAB HEMETOLOGY METHOD 11/27/2024 8:11 AM [facility] Platelets 206 130 - 400 K/mcL LAB HEMETOLOGY METHOD 11/27/2024 8:11 AM [facility] MPV 9.9 7.0 - 11.0 FL LAB HEMETOLOGY METHOD 11/27/2024 8:11 AM [facility] NRBC 0.0 <1.0 % LAB HEMETOLOGY METHOD 11/27/2024 8:11 AM [facility] NRBC Absolute 0.00 <0.10 K/mcL LAB HEMETOLOGY METHOD 11/27/2024 8:11 AM [facility] Blood Venous blood specimen / Unknown 11/27/2024 7:01 AM EST 11/27/2024 8:05 AM EST us Chai Carias MD LAB BLOOD ORDERABLES Final Resul t Performing Organization Address [facility]/ZIP Co de Phone Number [facility] [address] [place] [address], [place] [phone] * Hemoglobin A1c (11/27/2024 7:01 AM EST) Pathologist [facility] Hemoglobin A1C 5.9 <6.5 % LAB CHEMISTRY METHOD 11/27/2024 2:[address] [facility] Mean Bld Glu Estim. 123 mg/dL LAB CHEMISTRY METHOD 11/27/2024 2:05 PM [facility] Blood Venous blood specimen / Unknown 11/27/2024 7:01 AM EST 11/27/2024 8:05 AM EST us Chai Carias MD LAB BLOOD ORDERABLES Final Resul t Performing Organization Address [facility] Co de Phone Number [facility] [address] [place] [address], [place] [phone] * (ABNORMAL) Comprehensive metabolic panel (11/27/2024 7:01 AM EST) [facility] Sodium 138 133 - 145 mmol/L LAB CHEMISTRY METHOD 11/27/2024 8:37 AM [facility] Potassium 4.2 3.5 - 5.5 mmol/L LAB CHEMISTRY METHOD 11/27/2024 8:37 AM [facility] Chloride 105 96 - 110 mmol/L LAB CHEMISTRY METHOD 11/27/2024 8:37 AM [facility] CO2 25 21 - 32 mmol/L LAB CHEMISTRY METHOD 11/27/2024 8:37 AM [facility] Anion Gap 8 3 - 11 LAB CHEMISTRY METHOD 11/27/2024 8:37 AM [facility] Glucose 86 70 - 100 mg/dL LAB CHEMISTRY METHOD 11/27/2024 8:37 AM [facility] BUN 16 5 - 25 mg/dL LAB CHEMISTRY METHOD 11/27/2024 8:37 AM [facility] Creatinine 0.76 0.50 - 1.10 mg/dL LAB CHEMISTRY METHOD 11/27/2024 8:37 AM [facility] eGFR 86 >=60 mL/min/1. 73m2 LAB CHEMISTRY METHOD 11/27/2024 8:37 AM [facility] Comment:Calculation based on the??Chronic Kidney Disease Epidemiology Collaboration (CKD-EPI) equation refit??without adjustment for race. BUN/Creatinine Ratio 21.1 LAB CHEMISTRY METHOD 11/27/2024 8:37 AM [facility] Calcium 8.8 8.5 - 10.5 mg/dL LAB CHEMISTRY METHOD 11/27/2024 8:37 AM [facility] AST (SGOT) 31 10 - 42 unit/L LAB CHEMISTRY METHOD 11/27/2024 8:37 AM [facility] ALT (SGPT) 23 10 - 60 unit/L LAB CHEMISTRY METHOD 11/27/2024 8:37 AM [facility] Alkaline Phosphatase 128(H) 42 - 121 unit/L LAB CHEMISTRY METHOD 11/27/2024 8:37 AM [facility] Total Protein 6.8 6.0 - 8.0 g/dL LAB CHEMISTRY METHOD 11/27/2024 8:37 AM [facility] Albumin 3.0(L) 3.2 - 5.0 g/dL LAB CHEMISTRY METHOD 11/27/2024 8:37 AM [facility] Total Bilirubin 0.4 0.0 - 1.4 mg/dL LAB CHEMISTRY METHOD 11/27/2024 8:37 AM [facility] Blood Venous blood specimen / Unknown 11/27/2024 7:01 AM EST 11/27/2024 8:05 AM EST Chai Carias MD LAB BLOOD ORDERABLES Final Resul t [facility] ([facility]) H[facility] LAB [address] [place] [address], documented in this encounter Visit Diagnoses Diagnosis Type 2 diabetes mellitus with unspecified complications documented in this encounter Care Teams Business Solutions Director Relationship Specialty Start Date End Date Chai Carias MD [address] [place] [address] Dr [address] [place], [place] PCP - General Internal Medicine 11/20/24 documented as of this encounter
--- OUTSIDE RECORDS SUMMARY | 2025-01-23 09:02 | XMS_ITS | Continuity of Care Document ---
Author Organization [facility] Address [address] [address] Phone Care Team Providers Care Sugar Laboratory Assistant Name Role Phone Floresita ERVINAkil Unavailable Unavailable [...] Providers Copied on Encounter OFFICE/OUTPA TIENT VISIT, [facility] , [address], [facility], tel:[phone] [place] decreased vision (chief complaint) achiness (chief complaint) Exdtve age-rel mclr degn, right eye, with actv chrdl neovas Sep-2 9 Floresita Barnard. [address] [facility] [address] [facility], [place], [place], [facility], [place]. tel:[phone] OFFICE/OUTPA TIENT VISIT, [facility] , [address], [facility], tel:[phone] [place] floaters (chief complaint) pressure, pain (chief complaint) Vitreous degeneration, left eyePresbyopia 9 Floresita Barnard. [address] [place] [address], [address], [facility], [place]. tel:[phone] [facility] , [address] [place] [address], [address], tel:[phone] [place] floaters (chief complaint) Vitreous degeneration, left eye 9 Floresita Barnard. [address] [place] [address], [address], [facility], . tel:[phone] OFFICE/OUTPA TIENT VISIT, [facility] , [address], [facility], [place] tel:[phone] [place] No Information Oct-0 9201 7 Yevgeniy Valencia [address] [place] [address], [address] [place] [address], [facility], [place]. tel:[phone] [facility] , [address], [facility], tel:[phone] [place] Exudative age-related macular degeneration of lt eye w/ active choroidal neovascularizati on Oct-0 8-201 7 Yevgeniy Valencia [address] [facility], [address], [facility], . tel:[phone] [facility] , [address] [place] [address], [facility], tel:[phone] [place] decreased vision (chief complaint) Exudative age-related macular degeneration of lt eye w/ active choroidal neovascularizati on Oct-0 7 Yevgeniy Alvarez. [address], [facility], . tel:[phone] [facility] , [address] [place] [address], [facility], tel:[phone] [place] decreased vision (chief complaint) PresbyopiaAge-re lated nuclear cataract, bilateralOpen angle with borderline findings, low risk, bilateral Feb-2 7 Floresita Barnard. [address] [place] [address], [facility], . tel:[phone] Family History Family Member Type Diagnosis Age At Onset Mother Problem (finding) diabetes melli tus in first degree relative Payers Payer name Insurance type Covered constitution party ID Authoriza tiranulfo(s) [id number] Social History Type Description Quantity Date Captured [...] Ayala MD [address] [place], [address] [phone] Ordered: Referrals: Kacie Ayala MD. Consult ordered [...] HEBERT. Patient seen emergently today. referred from [facility] with sudden and profound loss of vision [...] acute process. Patient is a resident at [facility] and here with legal guardian today. [...]
== END 2025-01-23 09:09 | disposition home or self-care (01) ==
LOC: HO.HUSH 08:37
PROVIDERS: PCP Hospitalist; Visit Provider Nurse Practitioner Family
DX: N32.81 Overactive bladder (principal); N39.46 Mixed incontinence
CPT/HCPCS: 99214

== ENCOUNTER → 2025-01-23 08:36 | Outpatient (BNVA) | payer MEDICARE, SELFPAY | PROVIDERS: PCP Hospitalist; Visit Provider Nurse Practitioner Family | DX: N32.81 Overactive bladder (principal); N39.46 Mixed incontinence | CPT/HCPCS: 99212 ==

== ENCOUNTER 2025-04-01 10:24 | Outpatient (AMB) | payer MEDICARE, SELFPAY ==
--- NOTE | 2025-04-01 10:38 | MHC.OFFVIS ---
Vital Signs 04/01/25 10:42 Height 5 ft 2 in Weight 268 lb BMI 49.0 Intake Visit Reasons: [facility] DIRECTOR Annual/do not bethany Cut Off Tender Glass Required: No Information Interpreted: non-clinical & clinical Supervisor [employer] Placing: Supervisor [employer] Present Accompanied by: Employee Allergies topiramate [From Topamax] Adverse Reaction (Intermediate, Verified 04/01/25 10:41) Unknown oxybutynin Adverse Reaction (Unknown, Verified 04/01/25 10:41) Unknown oxycodone Adverse Reaction (Unknown, Verified 04/01/25 10:41) Unknown tuberculin, purified protein deriva Adverse Reaction (Unknown, Verified 04/01/25 10:41) Unknown lithium Allergy (Severe, Uncoded 04/01/25 10:41) coma zyprexa Adverse Reaction (Unknown, Uncoded 04/01/25 10:41) Unknown Post menopausal: Yes HPI Comments Details: Presenting for annual exam. No complaints. Last Pap/HPV was many years ago Last Mammogram was BI-RADS 1 in 07/17 No previous Colonoscopy No previous screening DEXA scan COUNT INCLUDES THE [facility] Medical History Fibromyalgia Suicidal ideations CHRIS (obstructive sleep apnea) Diabetes Social History Patient Tobacco Use Status: Former Tobacco user Tobacco use type: Cigarette Years Smoked: quit december 2021, started at age 16, 1PPD Review of Systems Const All systems reviewed & are unremarkable except as noted in HPI and below Card Reports as per HPI Resp Reports as per HPI GI Reports as per HPI and Reports no additional complaints Reports as per HPI Physical Exam Vital Signs: BMI result Body Mass Index 49.0 Const General: cooperative, healthy appearing and comfortable Chest Chest palpation & inspection: normal inspection of the chest and normal palpation of entire chest wall Breast/axilla inspection: normal inspection of the breasts and normal inspection of the axillae Breast/axilla palpation: normal palpation of the breasts, normal palpation of the axillae and no axillary lymphadenopathy Resp Effort & Inspection: normal respiratory effort Auscultation: clear to auscultation bilaterally Percussion: percussion normal Cardio Palpation: normal PMI Rate: regular rate Rhythm: regular rhythm Heart sounds: no murmurs and no rubs Peripheral pulses: Peripheral pulses 2+ throughout GI Inspection: Yes normal to inspection Palpation (GI): Soft to palpation, nontender, no guarding, not rigid and No hepatosplenomegaly present Percussion: Yes normal to percussion Auscultation: normal bowel sounds Rectal Exam - Female: deferred General: Yes bladder normal to palpation External Female Exam: No lesion Speculum Exam - Vagina: normal appearance of the vagina, normal palpation, normal vaginal discharge and not erythematous Speculum Exam - Cervix: normal appearance of the cervix and normal palpation Bimanual exam- vagina & uterus: normal bimanual exam, normal palpation, uterine size normal, bladder normal to palpation, consistency normal and normal palpation Bimanual Exam- Adnexa, other: normal adnexae, no masses and no tenderness Assessment & Plan Assessment & Plan (1) Well woman exam: Code(s): Z01.419 - Encounter for gynecological examination (general) (routine) without abnormal findings Category: Medical Plan: Estrogen ring taken out of the vaginal canal Co testing done. Counseled the patient about the recommended dietary allowance of 1200 mg of Calcium & 600 IU of vitamin D. Mammogram ordered for 07/18. The patient was offered referral to GI for screening colonoscopy, the patient declined the moment . The patient was instructed to perform monthly self-breast exams and schedule annual exam in a year. All questions answered and the patient verbalized understanding. Orders: Orders MM tomosynthesis screening BI Today Z12.31 - Encounter for screening mammogram for malignant neoplasm of breast XR DEXA axial skeleton Today Z78.0 - Asymptomatic menopausal state Referrals Gastroenterology Referral Z12.11 - Encounter for screening for malignant neoplasm of colon Coding Level of Care Code New Pt Prev Care >65yr (93255) Diagnoses Well woman exam Z01.419
[2025-04-01 10:42] VITALS: BMI 49.0
--- OUTSIDE RECORDS SUMMARY | 2025-04-01 11:37 | XMS_ITS | Encounter Summary ---
Author Organization [facility] Address [address] [place] [address] Care Team Providers Care Chair Inspector Name Role Phone Rosa Castro MD Primary Care Provider [phone] Encounter Details Date Type Department Care Team (Late st Contact Info) Description 01/16/[address] [facility] - Main Lab [address] [facility] [place] [address] Chai Carias MD [address] [place] [address] [address] [place] Unspecified external cause status Social History Tobacco [...] status documented in this encounter Care Teams Chair Inspector Relationship Specialty Start Date End Date Rosa Castro MD [address] [place] [phone] PCP - General 03/14/25 documented as of this encounter
== END 2025-04-01 11:10 | disposition home or self-care (01) ==
LOC: HO.HWS 10:24
PROVIDERS: PCP Hospitalist; Visit Provider Obstetrics & Gynecology
DX: Z01.419 Encounter for gynecological examination (general) (routine) without abnormal findings (principal)
CPT/HCPCS: 99387; 99459

== ENCOUNTER 2025-04-01 10:24 | Outpatient (REF) | payer MEDICARE, SELFPAY ==
[2025-04-05 11:11] LABS: HPV Genotype 16 Negative (Negative); HPV Genotype 18 Negative (Negative); HPV High Risk Negative (Negative)
== END 2025-04-01 10:25 | disposition home or self-care (01) ==
LOC: HO.LNP 10:24
PROVIDERS: PCP Hospitalist; Visit Provider Obstetrics & Gynecology
DX: Z01.419 Encounter for gynecological examination (general) (routine) without abnormal findings (principal)
CPT/HCPCS: 87626; 88175; 99387; 99459

== ENCOUNTER 2025-05-07 13:54 | Outpatient (AMB) | payer MEDICARE, SELFPAY ==
[2025-05-07 14:09] VITALS: BP 104/60; PULSE 86; O2SAT 95; BMI 48.2
--- NOTE | 2025-05-07 14:09 | MHC.OFFVIS ---
Vital Signs 05/07/25 14:09 Height 5 ft 2 in Weight 263 lb 7.238 oz BMI 48.2 BP 104/60 Blood Pressure Location Rt radial Position Sitting Pulse 86 Pulse Source Pulse Oximeter Pulse Oximetry (%) 95 Oxygen Delivery Method Room Air Intake Visit Reasons: sleep apnea Allergies topiramate (From Topamax) Adverse Reaction (Intermediate, Verified 05/07/25 14:22) Unknown oxybutynin Adverse Reaction (Unknown, Verified 05/07/25 14:22) Unknown oxycodone Adverse Reaction (Unknown, Verified 05/07/25 14:22) Unknown tuberculin, purified protein deriva Adverse Reaction (Unknown, Verified 05/07/25 14:22) Unknown lithium Allergy (Severe, Uncoded 04/01/25 10:41) coma zyprexa Adverse Reaction (Unknown, Uncoded 04/01/25 10:41) Unknown HPI HPI sleep apnea: Details: 69-year-old lady, former 40+ pack-year smoker, quit 2020, followed for underlying CHRIS and COPD. She has been using CPAP with good control of her sleep apnea. She has also been using Advair and albuterol MDI with reasonable control of her COPD. Her lung cancer screening CT chest did not demonstrate any worrisome pulmonary nodules. She denies any new pulmonary related concerns or complaints. [facility] Medical History Fibromyalgia Suicidal ideations CHRIS (obstructive sleep apnea) Diabetes Social History Patient Tobacco Use Status: Former Tobacco user Tobacco use type: Cigarette Years Smoked: quit december 2021, started at age 16, 1PPD Review of Systems Const Denies daytime sleepiness, Denies excessive sweating, Denies fatigue, Denies fever(s), Denies lethargy, Denies malaise, Denies night sweats, Denies snoring and Denies weight loss Eyes Denies blurry vision and Denies itchy eyes ENT Denies nasal congestion, Denies post nasal drip, Denies sinus pain, Denies sinus pressure and Denies other ( Thrush) Card Denies chest pain, Denies pedal edema, Denies dyspnea, Denies orthopnea and Denies paroxysmal nocturnal dyspnea Resp Denies cough, Denies hemoptysis, Denies excessive phlegm production, Denies dyspnea, Denies snoring and Denies wheezing GI Denies abdominal pain and Denies heartburn Musc Denies myalgias, Denies arthralgias and Denies joint swelling Skin/Breast Denies rash Neuro Denies memory loss and Denies seizure-like activity Psych Denies abnormal sleep pattern, Denies anxiety and Denies memory loss Endo Denies excessive sweating, Denies fatigue and Denies heat intolerance Alexx/Lymph Denies easy bruising Aller/Immun Denies itchy eyes, Denies seasonal rhinorrhea and Denies wheezing Physical Exam Vital Signs: Last Vital Signs Pulse 86 05/07/25 14:09 BP 104/60 05/07/25 14:09 Pulse Ox 95 05/07/25 14:09 Oxygen Delivery Method Room Air 05/07/25 14:09 BMI result Body Mass Index 48.2 Const General: no acute distress and alert Nutritional Appearance: obese Orientation/consciousness: Other orientation findings ( oriented) HEENT Head: Yes atraumatic Eyes General: appearance normal, both eyes and all related structures Sclerae: sclerae normal EOM: EOMs intact bilaterally Neck Neck: Yes supple Lymphatic: no lymphadenopathy noted Resp Effort & Inspection: normal respiratory effort and no use of accessory muscles Auscultation: clear to auscultation bilaterally Cardio Rate: regular rate Rhythm: regular rhythm Heart sounds: no gallops, no murmurs and no rubs Skin General skin exam: other ( warm) Extrem General: No clubbing, No cyanosis and No edema Assessment & Plan Assessment & Plan (1) COPD (chronic obstructive pulmonary disease): Code(s): J44.9 - Chronic obstructive pulmonary disease, unspecified Category: Medical Plan: Well controlled on current regimen of Advair and albuterol MDI. Continue current regimen. (2) CHRIS (obstructive sleep apnea): Code(s): G47.33 - Obstructive sleep apnea (adult) (pediatric) Category: Medical Plan: Well controlled on current CPAP therapy. Continue CPAP therapy. (3) Personal history of nicotine dependence: Code(s): Z87.891 - Personal history of nicotine dependence Category: Medical Plan: Results of lung cancer screening reviewed, no worrisome nodules, continue with yearly screening, next in September of 2025. Coding Level of Care Code Est Pt Level 4 (81953) Complex EM visit Add On G2211 Diagnoses COPD (chronic obstructive pulmonary disease) J44.9 CHRIS (obstructive sleep apnea) G47.33 Personal history of nicotine dependence Z87.896
--- OUTSIDE RECORDS SUMMARY | 2025-05-07 15:13 | XMS_ITS | Encounter Summary ---
Author Organization [facility] Address [address] [place] [address] Care Team Providers Care Mica Washer Gluer Name Role Phone Rosa Castro MD Primary Care Provider [phone] Encounter Details Date Type Department Care Team (Late st Contact Info) Description 01/16/2025 Lab Requisition [facility] - Main Lab [address] [facility] [place] [address] Chai Carias MD [address] [place] [address] [address] [place] Unspecified external cause status Social History Tobacco [...] status documented in this encounter Care Teams Mica Washer Gluer Relationship Specialty Start Date End Date Rosa Castro MD [address] [place] [phone] PCP - General 03/14/25 documented as of this encounter
== END 2025-05-07 14:32 | disposition home or self-care (01) ==
LOC: HO.HPS 13:54
PROVIDERS: PCP Hospitalist; Visit Provider Internal Medicine Pulmonary Disease
DX: J44.9 Chronic obstructive pulmonary disease, unspecified (principal); G47.33 Obstructive sleep apnea (adult) (pediatric); Z87.891 Personal history of nicotine dependence
CPT/HCPCS: 99214; G2211

== ENCOUNTER → 2025-05-07 13:54 | Outpatient (BNVA) | payer MEDICARE, SELFPAY | PROVIDERS: PCP Hospitalist; Visit Provider Internal Medicine Pulmonary Disease | DX: G47.33 Obstructive sleep apnea (adult) (pediatric) (principal); Z99.89 Dependence on other enabling machines and devices; J44.9 Chronic obstructive pulmonary disease, unspecified; Z87.891 Personal history of nicotine dependence; Z79.899 Other long term (current) drug therapy | CPT/HCPCS: 99212 ==

== ENCOUNTER 2025-06-05 12:21 | Outpatient (AMB) | payer MEDICARE, SELFPAY ==
--- NOTE | 2025-06-05 12:24 | MHC.OFFVIS ---
Vital Signs 06/05/25 12:28 06/05/25 13:11 Height 5 ft 2 in Weight 260 lb BMI 47.5 BP 86/57 L 96/60 Blood Pressure Location Lt brachial Lt radial Position Sitting Sitting Pulse 96 Pulse Oximetry (%) 95 Oxygen Delivery Method Room Air Intake Visit Reasons: Colonoscopy Screening Intake Note: Patient new consult for pre Colonoscopy screening Patient cc: abdominal bloating, acid reflux and constipation. Problem Manager Required: No Accompanied by: Family/Other Allergies topiramate (From Topamax) Adverse Reaction (Intermediate, Verified 06/05/25 12:24) Unknown oxybutynin Adverse Reaction (Unknown, Verified 06/05/25 12:24) Unknown oxycodone Adverse Reaction (Unknown, Verified 06/05/25 12:24) Unknown tuberculin, purified protein deriva Adverse Reaction (Unknown, Verified 06/05/25 12:24) Unknown lithium Allergy (Severe, Uncoded 04/01/25 10:41) coma zyprexa Adverse Reaction (Unknown, Uncoded 04/01/25 10:41) Unknown Medication List - Last Reconciled 06/05/25 by Jaycee Tolliver CNP acetaminophen 650 mg PO Q6H PRN albuterol sulfate 0.63 mg inhalation Q6H albuterol sulfate 90 mcg/actuation (Ventolin HFA) 2 puffs inhalation Q4-6H PRN aspirin 81 mg PO DAILY bisacodyl 10 mg MA DAILY PRN cholecalciferol (vitamin D3) 125 mcg PO DAILY diazepam (Valium) 2 mg PO BID docusate sodium 100 mg PO DAILY ferrous sulfate 325 mg PO DAILY fluticasone propion-salmeterol 500-50 mcg/dose (Advair Diskus) 1 inh inhalation BID gabapentin 300 mg PO BID glucagon (GlucaGen HypoKit) 1 mg subcut Q20M PRN haloperidol 0.5 mg PO BID hydroxyzine HCl 50 mg PO TID insulin lispro (Humalog U-100 Insulin) 1 sliding scale dose subcut USEASDIRECTD levothyroxine 125 mcg PO DAILY loperamide 2 mg PO Q4H PRN losartan 25 mg PO DAILY meclizine 12.5 mg PO BID-QID PRN multivitamin 1 tab PO DAILY nystatin 1 appl topical BID omeprazole 40 mg PO DAILY ondansetron 4 mg PO Q8H pantoprazole 40 mg PO DAILY pyridoxine (vitamin B6) 50 mg PO DAILY risperidone 2 mg PO BID risperidone 2 mg PO BID rosuvastatin 5 mg PO DAILY semaglutide (Ozempic) 0.5 mg subcut QWEEK sennosides (senna) 8.6 mg PO DAILY sodium phosphates 19-7 gram/118 mL (Fleet Enema) 118 mL MA DAILY PRN venlafaxine ER 150 mg PO DAILY vibegron (Gemtesa) 75 mg PO DAILY 30 days vitamins A,C,O-xlcx-jmijgj 4,296 mcg-226 mg-90 mg (PreserVision AREDS) 1 cap PO BID HPI HPI Colonoscopy Screening: Details: Patient is a 69-year-old female with PMH of obesity, fibromyalgia, diabetes and CHRIS w/CAP. Referred by PCP for pre colonoscopy screening. Patient is accompanied by CAR WASH ATTENDANT. This would be their third colonoscopy, with the most recent 10/29/2022 per provided written documentation with history of tubular adenomas with twelve polyps, including one noted to be large. They deny abdominal pain, nausea, vomiting, diarrhea (except when ill), blood in stool, and heartburn. They report occasional constipation but no consistent issues. No trouble swallowing, no change in appetite, and no recent fever were noted. Pertinent history includes diabetes, obstructive sleep apnea managed with nightly CPAP, and fibromyalgia. Blood pressure is documented as low (86/57), though the patient denies dizziness or lightheadedness. Weight is noted at 360 pounds, and the patient denies any significant weight changes. Resides in a facility associated with [facility], which is not described as a intermediate. Shares a room with two other residents. [facility] Medical History (Updated 06/05/25 @ 13:14 by Jaycee Tolliver CNP) Tubular adenoma of colon Fibromyalgia Suicidal ideations CHRIS (obstructive sleep apnea) Diabetes Surgical History (Updated 06/05/25 @ 12:37 by rAelis James) Hx of cholecystectomy Hx of appendectomy Hx of colonoscopy Social History Patient Tobacco Use Status: Former Tobacco user Tobacco use type: Cigarette Years Smoked: quit december 2021, started at age 16, 1PPD Review of Systems Const Reports as per HPI ENT Reports as per HPI Card Reports as per HPI Resp Reports as per HPI GI Reports as per HPI Reports as per HPI Physical Exam Vital Signs: Last Vital Signs Pulse 96 06/05/25 12:28 BP 96/60 06/05/25 13:11 Pulse Ox 95 06/05/25 12:28 Oxygen Delivery Method Room Air 06/05/25 12:28 BMI result Body Mass Index 47.5 Const General: healthy appearing, no acute distress and well developed Nutritional Appearance: obese Orientation/consciousness: patient oriented x3 HEENT Head: Yes normal to inspection, Yes normocephalic and Yes atraumatic Face and sinus: Yes normal facial exam Eyes General: appearance normal, both eyes and all related structures Neck Neck: Yes normal visual inspection Resp Effort & Inspection: normal respiratory effort, able to speak in complete sentences, no tracheal deviation and symmetric chest movement GI Inspection: Yes obesity Neuro General: patient oriented x3 Gait exam (Neuro): Normal gait present Psych Appearance: grossly normal Mental Status: mental status grossly normal Speech and movement: Normal speech and movement present Affect: normal affect Attitude: cooperative Thought process: Normal thought process present Thought content: Normal thought content present Insight: Good insight present (Psych) Judgement: Good judgement present (Psych) Assessment & Plan Assessment & Plan (1) Tubular adenoma of colon: Code(s): D12.6 - Benign neoplasm of colon, unspecified Category: Medical Plan: Per intermediate provided information. Colonoscopy nor pathology results available at time of visit. Precancerous tubular adenomas warrant regular surveillance. Colonoscopy recommended as the most definitive screening tool, pt agreeable if recommended privacy steps taken for prep ( see scanned document). No alarm features. Medications: -prescriptions for laxative tablets and MiraLax sent to pharmacy; instructions for Gatorade purchase and clear liquid diet given. -Understands diabetes medications and ASA will need to be held days prior to procedure. Nurse to review med holds per protocol. Patient educated on scheduling process, procedure preparation, including avoiding certain foods and ensuring clear liquid intake Advised on necessity for ride post-procedure due to sedation. Plan BP improved at recheck. Follow-up after colonoscopy or sooner as needed Time: I spent a total of 30 minutes on the date of encounter which includes: Preparing to see the patient (reviewed previous documentation, test results and medical history) Performing a medically appropriate exam and/or evaluation Ordering medications, tests, and procedures Documenting clinical information in the health record Medications: New bisacodyl (Dulcolax (bisacodyl)) Take four tablets pre colonoscopy instructions 20 mg (4 x 5 mg) PO ONCE 4 tabs 0RF 1 day polyethylene glycol 3350 (Miralax) per colonoscopy prep instructions 238 grams PO ONCE 238 grams 0RF Coding Level of Care Code New Pt New Pt Level 4 (35503) Patient Type New Diagnoses Tubular adenoma of colon D12.6
[2025-06-05 12:28] VITALS: BP 86/57; PULSE 96; O2SAT 95; BMI 47.5
--- OUTSIDE RECORDS SUMMARY | 2025-06-05 13:02 | XMS_ITS | Encounter Summary ---
Author Organization [facility] Address [address] [place] [address] Care Team Providers Care Regional Marketing Director Name Role Phone Rosa Castro MD Primary Care Provider [phone] Encounter Details Date Type Department Care Team (Late st Contact Info) Description 01/16/2025 Lab Requisition [facility] - Main Lab [address] [facility] [address] Chai Carias MD [address] [place] [address] [address] [place] Unspecified external cause status Social History Tobacco [...] status documented in this encounter Care Teams Regional Marketing Director Relationship Specialty Start Date End Date Rosa Castro MD [address] [place] [phone] PCP - General 03/14/25 documented as of this encounter
[2025-06-05 13:11] VITALS: BP 96/60
== END 2025-06-05 13:17 | disposition home or self-care (01) ==
LOC: HO.HGI 12:22
PROVIDERS: PCP Hospitalist; Visit Provider Nurse Practitioner Family
DX: D12.6 Benign neoplasm of colon, unspecified (principal)
CPT/HCPCS: 99204

== ENCOUNTER → 2025-06-05 12:21 | Outpatient (BNVA) | payer MEDICARE, SELFPAY | PROVIDERS: PCP Hospitalist; Visit Provider Nurse Practitioner Family | DX: D12.6 Benign neoplasm of colon, unspecified (principal) | CPT/HCPCS: 99202 ==

== ENCOUNTER 2025-07-02 09:40 | Outpatient (AMB) | payer MEDICARE, SELFPAY ==
--- OUTSIDE RECORDS SUMMARY | 2019-07-17 06:42 | XMS_ITS | Continuity of Care Document ---
Author Organization [facility] Address [address] [place] [address] Phone Care Team Providers Care Special Education Curriculum Specialist Name Role Phone Akil Canas OD Unavailable Unavailable Allergies, Adverse Reactions, Alerts Substance Reaction Status Criticality OXYCODONE HCL Active No Information caffeine Active No Information aspirin Active No Information acetaminophen Active No Information Medications Medication Instructions Dosage Effective Dates (start - stop) Status Comments LITHATE (unknown strength) Not Available - Active EFFEXOR XR (unknown strength) take 1 capsule by oral route every day with food Not Available - Active DIAZEPAM (unknown strength) take 1 tablet by oral route 3 times every day Not Available - Active DEPAKOTE (unknown strength) take 1 tablet by oral route 2 times every day Not Available - Active SYNTHROID (unknown strength) take 1 tablet by oral route every day Not Available - Active SEROQUEL (unknown strength) take 1 tablet by oral route 2 times every day Not Available - Active HYDROXYZINE PAMOATE (unknown strength) take 1 capsule by oral route 4 times every day Not Available - Active HALOPERIDOL (unknown strength) take 1 tablet by oral route 2 times every day Not Available - Active GABAPENTIN (unknown strength) take 3 capsule by oral route 3 times every day Not Available - Active Procedures Procedure Date OFFICE/OUTPATIENT VISIT, EST Advance Directives Directive Yes / No Effective Date File Name No Information Encounters Encounter Description Practice Location Reason(s) For Visit Diagnoses Date Provider OFFICE/OUTPATI ENT VISIT, EST [facility], [address], [place], [address], tel:[phone] [place] decreased vision (chief complaint)a chiness (chief complaint) Exdtve age-rel mclr degn, right eye, with actv chrdl neovas Floresita Barnard. [address] [place] [address], [facility], . tel:[phone] [facility] , [address] [facility], [place], [place], [facility], tel:[phone] [place] floaters (chief complaint)p ressure, pain (chief complaint) Vitreous degeneration, left eyePresbyopia Floresita Barnard. [address], [place], [place], [facility], [place]. tel:[phone] [facility] , [address] [place], [place] [address] [place] [address], [facility], tel:[phone] [place] floaters (chief complaint) Vitreous degeneration, left eye Elijahwilman Barnard. [address] [place] [address], [facility], . tel:[phone] [facility] , [facility] [address] [place] [address], [facility], tel:[phone] [place] No Information Yevgeniy Valencia [facility], [address], [facility], . tel:[phone] [facility] , [address] [place] [address], [facility], tel:[phone] [place] Exudative age-related macular degeneration of lt eye w/ active choroidal neovascularization Yevgenyi Valencia [address] [facility], [address] [place] [address], [facility], [place]. tel:[phone] [facility] , [address] [place] [address], [facility], tel:[phone] [place] decreased vision (chief complaint) Exudative age-related macular degeneration of lt eye w/ active choroidal neovascularization Yevgeniy Valencia [address] [facility], [address] [place] [address], [facility], [place]. tel:[phone] [facility] , [address] [facility], [place], [address], [place] tel:[phone] [place] decreased vision (chief complaint) PresbyopiaAge-relate d nuclear cataract, bilateralOpen angle with borderline findings, low risk, bilateral Floresita Barnard. [address] [facility], [address], [place], [address], [place]. tel:[phone] Family History Family Member Type Diagnosis Age At Onset Mother Problem (finding) diabetes charlyi rush in first degree relative Payers Payer name Insurance type Covered libertarian ID Authoriza [place]ion(s[place] [id number] Social History Type Description Quantity Date Captured Comments Alcohol Use Details No Caffeine Use Details 2 cups per day Tobacco Use Status Smoking Status Heavy tobacco smoker Sex Female Chief Complaint And Reason For Visit From encounter dated '07/17/2019 10:42'. decreased vision (chief complaint). Description: The 63 Year old female presents for evaluation of decreased vision in the right eye and left eye. It started about 3 month(s) ago. The onset was sudden/quick. It affects both near and far vision. The symptom is constant. The condition is worsening. The condition is described as blurring. Pt takes an eye vitamin. achiness (chief complaint). Description: The patient complains of achiness in the right eye and left eye. It started about 1 month(s) ago . Plan Of Treatment Date Type Action Status Goal Tobacco cessation counseling completed Goal Tobacco cessation counseling completed Referral Ordered: Kacie Ayala MD (related to Exdtve age-rel mclr degn, right eye, with actv chrdl neovas) ordered Referral Referred To: Kacie Ayala MD [address] [facility] [address] [place], [address] [phone] Ordered: Referrals: Kacie Ayala MD. Consult ordered History Of Present Illness Encounter Date Complaint History Of Prese nt Illness decreased vision The 63 Year old female presents for evaluation of decreased vision in the right eye and left eye. It started about 3 month(s) ago. The onset was sudden/quick. It affects both near and far vision. The symptom is constant. The condition is worsening. The condition is described as blurring. Pt takes an eye vitamin. achiness The patient comp lains of achiness in the right eye and left eye. It started about 1 month(s) ago . floaters The 63 Year old female presents for evaluation of floaters in the left eye. It started about 2 week(s) ago. The symptom is constant. The condition is not any better. AREDS2 BID. pressure, pain The patient comp lains of pressure, pain in the left eye. It started about 4 day(s) ago . The symptom is constant. Pt does not use gtts. floaters The 63 Year old female presents for evaluation of floaters in the left eye. It started about 3 day(s) ago. The onset was sudden. The patient denies flashes and eye pain. Pt has been experiencing floaters OS for about 3 days now. Pt describes floaters as small black bugs that look like they are moving around on the wall . Pt does not have good vision in that eye so would not know if it has affected vision at all. decreased vision The 61 Year old female presents for evaluation of decreased vision in the left eye. It started about 8 hour(s) ago. The onset was upon awakening. It affects both near and far vision. The symptom is constant. It occurs with no pattern. The condition is not any better. Denies pain or redness. no floaters/flashes. no HEBERT. Patient seen emergently today. referred from [facility] with sudden and profound loss of vision OS. Patient states she cant see anything at all, it's all black . decreased vision The 61 Year old female presents for evaluation of decreased vision in the right eye and left eye. The onset was progressive. It affects both near and far vision. The symptom is constant. The condition is moderate. The condition is described as blurring. The patient denies floaters, flashes and eye pain. Pt did wear glasses Rx at one point, but hasn't for some years. Pt had some kind of strabismus surgery numerous times as a child she says.. Instructions Date Instruction Additional Infor yasmeen to retinal SAL for evauation Re lated to Exdtve age-rel mclr degn, right eye, with actv chrdl neovas Impression/Plan - Ma cular degeneration, wet type. Will refer the patient to a retinal specialist for consult. Related to Exdtve age-rel mclr degn, right eye, with actv chrdl neovas 8 months for dfe OU Related to V itreous degeneration, left eye return for refraction check prn Related to Presbyopia Impression/Plan - Po sterior vitreous detachment accounts for the patient's complaints. There is no evidence of retinal pathology. All signs and risks of retinal detachment and tears were discussed in detail including change in floaters, flashes, or new peripheral field loss. Patient instructed to call the office immediately if any symptoms noted. Related to Vitreous degeneration, left eye Impression/Plan Related to Presb yopia 2 weeks for follow updfe both ey es Related to Vitreous degeneration, left eye Impression/Plan - Po sterior vitreous detachment accounts for the patient's complaints. There is no evidence of retinal pathology. All signs and risks of retinal detachment and tears were discussed in detail. Patient instructed to call office immediately if any symptoms noted. Recommend the patient return to the office for consult. Related to Vitreous degeneration, left eye Impression/Plan - Hao treviñosana called answering service at 430pm and I spoke to her on the phone. Difficult to understand/ pin down complaints but she states left eye is going in and out and sometimes has flashing lights . I explained that the large area of bleeding may cause some flashes and the vision is not likely to improve but may fluctuate because of the degree of bleeding under the retina. I reiterated that we will call her tomorrow after we make an appointment with the retina specialist. Related to Exudative age-related macular degeneration of lt eye w/ active choroidal neovascularization Impression/Plan - Ve ry large area of subretinal heme OS. Clinical findings not consistent with sudden vision loss OS. I suspect patient noted degree of vision loss OS after covering OD inadvertently and that this is not an acute process. Patient is a resident at [facility] and here with legal guardian today. Explained diagnosis and guarded prognosis. Advised holding aspirin for now. Will appoint with retina on Tuesday. Related to Exudative age-related macular degeneration of lt eye w/ active choroidal neovascularization 1 year for cx Related to Age-r elated nuclear cataract, bilateral Impression/Plan - glasses rx giv en Related to Presbyopia Impression/Plan - Ca taracts account for the patient's complaints. No treatment currently recommended. Activities of daily living not affected at this time. Related to Age-related nuclear cataract, bilateral Impression/Plan - continue watch Related to Open angle with borderline findings, low risk, bilateral Follow up - 1 year for cx Relate d to Age-related nuclear cataract, bilateral Follow up - 2 months for hvf and iop Related to Open angle with borderline findings, low risk, bilateral 2 months for hvf and iop Related to Open angle with borderline findings, low risk, bilateral Assessments Type Assessment Date assessment Exdtve age-rel mclr degn, right eye, with actv chrdl neovas impression Exdtve age-rel mclr degn, right eye, with actv chrdl neovas: H35.3211
--- NOTE | 2025-07-02 09:47 | A.OFFVIS_ITS ---
Intake Visit Reasons: 3M follow up PVR Intake Note: Patient is present for 3M/PVR Urology Medication:VIBEGRON,VITAMIN B6 Antibiotic Allergy:NONE Blood Thinner:ASPIRIN TODAY'S PVR:0ML'S Client Services Account Manager Required: No Allergies topiramate (From Topamax) Adverse Reaction (Intermediate, Verified 07/02/25 09:49) Unknown oxybutynin Adverse Reaction (Unknown, Verified 07/02/25 09:49) Unknown oxycodone Adverse Reaction (Unknown, Verified 07/02/25 09:49) Unknown tuberculin, purified protein deriva Adverse Reaction (Unknown, Verified 07/02/25 09:49) Unknown lithium Allergy (Severe, Uncoded 07/02/25 09:49) coma zyprexa Adverse Reaction (Unknown, Uncoded 07/02/25 09:49) Unknown HPI Comments Details: Mattie is a pleasant 69-year-old female patient of Dr. Carias will resides at [facility] in his accompanied by Ladonna at today's office visit. She has a past medical history of persistent mood disorder, personality disorder, PTSD, COPD, anxiety, type 2 diabetes, obstructive sleep apnea, obesity, renal cysts, overactive bladder, incontinence, pulmonary embolism, hypothyroidism, hyperlipidemia, mild intellectual disability, GERD, polymyalgia rheumatica, and fibromyalgia. She presents to the office today for follow-up of her lower urinary tract symptoms. In discussion with the patient today she reports compliance with 75 mg of Gemtesa daily as prescribed. She does feel Gemtesa has been helpful with lower urinary tract symptoms however she does continue to experience nocturnal incontinence as well as episodes of urge incontinence/she describes are infrequent. She does continue to discuss missing her Silva catheter that she had in [place] due to his urinary incontinence. Unable to obtain urine for urinalysis as patient unable to void however PVR 0 mL. Previous workup has included a retroperitoneal ultrasound 12/18 noting bilateral kidneys are normal in size and echotexture. No hydronephrosis of either kidney. Urinary bladder is unremarkable. Bilateral ureteral jets are demonstrated. She has previously trialed Myrbetriq without improvement. We did discussed further treatment options of urge incontinence as well as nocturnal incontinence. We discussed further treatment options and risks and benefits of these treatment options. She also has a previous history of trialing pelvic floor therapy and did not find this helpful. She otherwise denies hematuria, dysuria, foul smelling urine, changes to urinary stream, flank pain, fever, and or chills. We discussed importance of weight management in relation to lower urinary tract symptoms as well as overall health and well-being. We also discussed importance of managing diabetes for improvement in lower urinary tract symptoms as well as overall health and well-being. We discussed bladder triggers and irritants. We also discussed the importance of timed/scheduled voiding given decreased mobility in time to access the bathroom. She otherwise offers no other issues or concerns at this time. [facility] Medical History Tubular adenoma of colon Fibromyalgia Suicidal ideations CHRIS (obstructive sleep apnea) Diabetes Surgical History (Updated 06/05/25 @ 12:37 by Arelis James) Hx of cholecystectomy Hx of appendectomy Hx of colonoscopy Social History Patient Tobacco Use Status: Former Tobacco user Tobacco use type: Cigarette Years Smoked: quit december 2021, started at age 16, 1PPD Review of Systems Eyes Reports no additional complaints ENT Reports as per HPI Card Reports as per HPI Resp Reports as per HPI GI Reports as per HPI Reports as per HPI Musc Reports as per HPI Neuro Reports as per HPI Psych Reports as per HPI Endo Reports as per HPI Alexx/Lymph Reports no additional complaints Aller/Immun Reports no additional complaints Physical Exam Const General: cooperative, healthy appearing, comfortable, no acute distress, well developed, alert and awake Nutritional Appearance: obese Orientation/consciousness: patient oriented x3 Limitations: wheelchair HEENT Head: Yes normal to inspection, Yes normocephalic and Yes atraumatic Ears: hearing grossly normal bilaterally Eyes General: appearance normal, both eyes and all related structures Neck Neck: Yes normal visual inspection and Yes trachea midline Chest Chest palpation & inspection: normal inspection of the chest Resp Effort & Inspection: normal respiratory effort and able to speak in complete sentences Cardio Rate: regular rate GI Inspection: Yes normal to inspection General: Yes no CVA tenderness Back/Spine/Pelvis Back: no CVA tenderness Skin General skin exam: no rashes or lesions noted Neuro General: patient oriented x3 Extrem General: Yes normal to inspection Psych Appearance: grossly normal and well kempt Mental Status: mental status grossly normal Speech and movement: Normal speech and movement present and Clear speech present Affect: normal affect Attitude: cooperative Thought process: Normal thought process present Thought content: Normal thought content present Insight: Fair insight present (Psych) Judgement: Fair judgement present (Psych) Office Procedures Post Void Residual Post Residual Void Post Void Residual (PVR): 0 [id number] Void Residual by ultrasound Assessment & Plan Assessment & Plan (1) Overactive bladder: Code(s): N32.81 - Overactive bladder Category: Medical (2) Urinary incontinence, mixed: Code(s): N39.46 - Mixed incontinence Category: Medical Plan Unable to obtain urine for urinalysis today however PVR 0 mL. Continue Gemtesa as discussed and prescribed. We discussed further treatment options and risks and benefits of these treatment options. We discussed importance of weight loss in relation to lower urinary tract symptoms as well as overall health and well-being. We discussed importance of management and diabetes for improvement in lower urinary tract symptoms as well as overall health and well-being. We discussed bladder triggers/irritants. We discussed the importance of timed/scheduled voiding given decreased mobility We discussed potential near future in office urodynamics for further assessment evaluation Follow-up in 6 months with PVR; or sooner with any issues, concerns, and or questions. Patient Instructions: The patient had an opportunity to ask questions regarding the treatment plan. All questions were answered. Physical exam, labs, and imaging were discussed and reviewed in detail. As well as risks, benefits, and discussion of treatment choices. No major barriers to understanding were identified. The patient expressed understanding and agreement with the above treatment plan. The patient was made aware they should contact our office by phone for worsening of their current condition, the appearance of new symptoms, or with any question s or concerns. Compliance is encouraged with any medications and follow up testing that is ordered. It is a privilege to be allowed the opportunity to participate in? your urological care.? Again, if you have any questions or concerns If you have any questions or concerns please do not hesitate to contact me. The office is [phone]. This note is constructed using voice recognition software. While every effort has been made to ensure accuracy doll repairer errors may have been included. Yours sincerely, VIANNEY Richardson Coding Level of Care Code Est Pt Level 3 (53564) Complex EM visit Add On G2211 Diagnoses Overactive bladder N32.81 Urinary incontinence, mixed N39.46 CPT Codes Post Residual Void - PVR CPT Code: 20818-Xzrp Void Residual by ultrasound ([id number])
== END 2025-07-02 10:15 | disposition home or self-care (01) ==
LOC: HO.HUSH 09:40
PROVIDERS: PCP Hospitalist; Visit Provider Nurse Practitioner Family
DX: N32.81 Overactive bladder (principal); N39.46 Mixed incontinence
CPT/HCPCS: 99213; G2211

== ENCOUNTER → 2025-07-02 09:40 | Outpatient (BNVA) | payer MEDICARE, SELFPAY | PROVIDERS: PCP Hospitalist; Visit Provider Nurse Practitioner Family | DX: N32.81 Overactive bladder (principal); N39.46 Mixed incontinence | CPT/HCPCS: 51798; 99212 ==

== ENCOUNTER 2025-07-03 12:51 | Outpatient (REF) | payer MEDICARE, SELFPAY ==
[2025-07-03 22:25] LABS: Bacterial Vaginosis PCR POSITIVE (Negative); Candida Group PCR NOT DETECTED (Not Detect); Candida glab krusei PCR NOT DETECTED (Not Detect); Trichomonas vaginalis PCR NOT DETECTED (Not Detect)
[2025-07-03 23:32] LABS: CT PCR NOT DETECTED (Not Detect.); NG PCR NOT DETECTED (Not Detect.)
== END 2025-07-03 12:52 | disposition home or self-care (01) ==
LOC: HO.LNP 12:51
PROVIDERS: PCP Hospitalist; Visit Provider Obstetrics & Gynecology
DX: R10.2 Pelvic and perineal pain (principal)
CPT/HCPCS: 81515; 87491; 87591; 99212

== ENCOUNTER 2025-07-03 12:51 | Outpatient (AMB) | payer MEDICARE, SELFPAY ==
--- OUTSIDE RECORDS SUMMARY | 2019-07-17 06:42 | XMS_ITS | Continuity of Care Document ---
Author Organization [facility] Address [address] [place] [address] Phone Care Team Providers Care Dressmaking Teacher Name Role Phone Akil Canas OD Unavailable [...] [facility], [address], [place], [address], tel:[phone] [place] decreased vision (chief complaint)a chiness (chief complaint) Exdtve age-rel mclr degn, right eye, with actv chrdl neovas Floresita Barnard. [address] [place] [address], [facility], . tel:[phone] [facility] , [address] [facility], [place], [place], [facility], tel:[phone] [place] floaters (chief complaint)p ressure, pain (chief complaint) Vitreous degeneration, left eyePresbyopia Floresita Barnard. [address], [place], [place], [facility], [place]. tel:[phone] [facility] , [address] [place], [place] [address]ite [address] [place] [address], [facility], tel:[phone] [place] floaters (chief complaint) Vitreous degeneration, left eye Elijahwilman Barnard. [address] [place] [address], [facility], . tel:[phone] [facility] , [facility] [address] [place] [address], [facility], tel:[phone] [place] No Information Yevgeniy Valencia [facility], [address], [facility], . tel:[phone] [facility] , [address] [place] [address], [facility], tel:[phone] [place] Exudative age-related macular degeneration of lt eye w/ active choroidal neovascularization Yevgeniy Valencia [address] [facility], [address] [place] [address], [facility], [place]. tel:[phone] [facility] , [address] [place] [address], [facility], tel:[phone] [place] decreased vision (chief complaint) Exudative age-related macular degeneration of lt eye w/ active choroidal neovascularization Yevgeniy Valencia [address] [facility], [address] [place] [address], [facility], [place]. tel:[phone] [facility] , [address] [facility], [place], [address], [place] tel:[phone] [place] decreased vision (chief complaint) PresbyopiaAge-relate d nuclear cataract, bilateralOpen angle with borderline findings, low risk, bilateral Floresita Barnard. [address] [facility], [address], [place], [address], [place]. tel:[phone] Family History Family Member Type Diagnosis Age At Onset Mother Problem (finding) diabetes charlyi rush in first degree relative Payers Payer name Insurance type Covered alliance party ID Authoriza [place]ion(s) [place] [id number] Social History Type Description Quantity Date Captured [...] Referral Referred To: Kacie Ayala MD [address] [facility] [address] [place], [address] [phone] Ordered: Referrals: Kacie Ayala MD. Consult ordered [...] HEBERT. Patient seen emergently today. referred from [facility] with sudden and profound loss of vision [...] acute process. Patient is a resident at [facility] and here with legal guardian today. Explained [...]
--- NOTE | 2025-07-03 12:59 | MHC.OFFVIS ---
Intake Visit Reasons: Vaginal pain Accompanied by: Employee Allergies topiramate (From Topamax) Adverse Reaction (Intermediate, Verified 07/03/25 13:06) Unknown oxybutynin Adverse Reaction (Unknown, Verified 07/03/25 13:06) Unknown oxycodone Adverse Reaction (Unknown, Verified 07/03/25 13:06) Unknown tuberculin, purified protein deriva Adverse Reaction (Unknown, Verified 07/03/25 13:06) Unknown lithium Allergy (Severe, Uncoded 07/02/25 09:49) coma zyprexa Adverse Reaction (Unknown, Uncoded 07/02/25 09:49) Unknown HPI Comments Details: Presenting complaining of vaginal pain over the last 3 weeks no associated vaginal discharge or itching or odor PFSH Medical History Tubular adenoma of colon Fibromyalgia Suicidal ideations CHRIS (obstructive sleep apnea) Diabetes Surgical History Hx of cholecystectomy Hx of appendectomy Hx of colonoscopy Social History Patient Tobacco Use Status: Former Tobacco user Tobacco use type: Cigarette Years Smoked: quit december 2021, started at age 16, 1PPD Review of Systems Const All systems reviewed & are unremarkable except as noted in HPI and below Physical Exam General: Yes no CVA tenderness External Female Exam: normal external appearance and normal appearance of the urethra Speculum Exam - Vagina: normal appearance of the vagina, normal palpation, no lesions and no masses Speculum Exam - Cervix: normal appearance of the cervix, normal palpation, no lesions, no masses and nontender Bimanual exam- vagina & uterus: normal bimanual exam, normal palpation, uterine size normal, normal palpation, uterine shape normal, No Cervical tenderness present and non-tender Bimanual Exam- Adnexa, other: normal adnexae Back/Spine/Pelvis Back: no CVA tenderness Assessment & Plan Assessment & Plan (1) Vaginal pain: Code(s): R10.2 - Pelvic and perineal pain Category: Medical Plan: GC/CT with BV panel collected. Pelvic ultrasound ordered. Instructions given the patient to schedule ultrasound follow-up appointment within 2-3 weeks. All questions answered, the patient verbalized understanding Orders: Orders US pelvic and transvaginal Today R10.2 - Pelvic and perineal pain Coding Level of Care Code Est Pt Level 3 (20124) Diagnoses Vaginal pain R10.2
--- OUTSIDE RECORDS SUMMARY | 2025-07-03 15:50 | XMS_ITS | Encounter Summary ---
Author Organization [facility] Address [address] [place] [address] Care Team Providers Care Accounting Software Specialist Name Role Phone Rosa Castro MD Primary Care Provider [phone] Encounter Details Date Type Department Care Team (Late st Contact Info) Description 01/16/[address] [facility] - Main Lab [address] [facility] [place] [facility] [address] Chai Carias MD [address] [place] [address] [address] [place] Unspecified external cause status Social History Tobacco [...] status documented in this encounter Care Teams Accounting Software Specialist Relationship Specialty Start Date End Date Rosa Castro MD [address] [place] [phone] PCP - General 03/14/25 documented as of this encounter
--- OUTSIDE RECORDS SUMMARY | 2025-07-03 15:50 | XMS_ITS | Encounter Summary ---
Author Organization [facility] Address [address] [place] [address] Care Team Providers Care Blower Feeder Dyed Raw Stock Name Role Phone Rosa Castro MD Primary Care Provider [phone] Encounter Details Date Type Department Care Team (Late st Contact Info) Description 01/18/2025 Lab Requisition [facility] Lab [address] [place] [address] Chai Carias MD [address] [place] [address] [address] [place] Altered mental status, unspecified Social History Tobacco [...] reflex microscopic (01/18/2025 6:00 AM EDT) Specific [place] Urine 1.015 1.003 - 1.030 LAB URINALYSIS - AUTOMATED METHOD 01/18/2025 7:22 AM EDT [facility] pH, Urine 7.0 5.0 - 8.0 pH LAB URINALYSIS - AUTOMATED METHOD 01/18/2025 7:22 AM [facility] Leukocytes, Urine Moderate(A) Negative LAB URINALYSIS - AUTOMATED METHOD 01/18/2025 7:22 AM [facility] Nitrite, Urine Positive(A) Negative LAB URINALYSIS - AUTOMATED METHOD 01/18/2025 7:22 AM [facility] Protein, Urine Negative <=Trace mg/dL LAB URINALYSIS - AUTOMATED METHOD 01/18/2025 7:22 AM [facility] Glucose, Urine Negative Negative mg/dL LAB URINALYSIS - AUTOMATED METHOD 01/18/2025 7:22 AM [facility] Ketones, Urine Negative Negative mg/dL LAB URINALYSIS - AUTOMATED METHOD 01/18/2025 7:22 AM [facility] Urobilinogen , Urine 1.0 0.2 - 1.0 mg/dL LAB URINALYSIS - AUTOMATED METHOD 01/18/2025 7:22 AM [facility] Bilirubin, Urine Negative Negative LAB URINALYSIS - AUTOMATED METHOD 01/18/2025 7:22 AM [facility] Blood, Urine Negative Negative LAB URINALYSIS - AUTOMATED METHOD 01/18/2025 7:22 AM [facility] RBC, Urine 0.8 0 - 4 /HPF LAB URINALYSIS - AUTOMATED METHOD 01/18/2025 7:22 AM [facility] WBC, Urine 34.5(H) 0 - 4 /HPF LAB URINALYSIS - AUTOMATED METHOD 01/18/2025 7:22 AM [facility] Squamous Epithelial, Urine 1 0 - 60 /LPF LAB URINALYSIS - AUTOMATED METHOD 01/18/2025 7:22 AM [facility] Bacteria, Urine Many(A) Negative /HPF LAB URINALYSIS - AUTOMATED METHOD 01/18/2025 7:22 AM [facility] Hyaline Casts, Urine 0.8 0 - 3 /LPF LAB URINALYSIS - AUTOMATED METHOD 01/18/2025 7:22 AM EDT [facility] Urine Urine specimen from urinary conduit / Unknown 01/18/2025 6:00 AM EDT 01/18/2025 7:05 AM EDT us Chai Carias MD LAB URINE ORDERABLES Final Resul t [facility] [address] [place] [address], [place] [phone] * (ABNORMAL) Culture urine (01/18/2025 6:00 AM EDT) Culture, Urine >100,000 CFU/mL Escherichia coli(A) NADER 01/20/2025 11:14 AM EDT [facility] Comment: This is an edited result. Previous organism was Gram negative bacilli on 01/19/2025 at 0846 EDT. Culture, Urine 50,000-100,000 CFU/mL Escherichia coli(A) NADER 01/20/2025 11:14 AM EDT [facility] Comment: The organism value for [...] NADER <=0.12 ug/ml: Susceptible Escherichia coli Nitrofurantoin NAEDR <=16 ug/ml: Susceptible Escherichia coli Trimethoprim/Sulfamethoxazole NADER <=20 ug/ml: Susceptible us Chai Carias MD LAB MICROBIOLOGY - GENERAL ORDER CHANTELLE Final Result [facility] [address] [place] [address], documented in this encounter Visit Diagnoses Diagnosis Altered mental status, unspecified documented in this encounter Care Teams Blower Feeder Dyed Raw Stock Relationship Specialty Start Date End Date Rosa Castro MD [address] [place] [phone] PCP - General 03/14/25 documented as of this encounter
--- OUTSIDE RECORDS SUMMARY | 2025-07-03 15:50 | XMS_ITS | Encounter Summary ---
Author Organization [employer] Address [address] [place] [address] Care Team Providers Care Case Fitter Name Role Phone Rosa Castro MD Primary Care Provider [phone] Encounter Details Date Type Department Care Team (Late st Contact Info) Description 07/01/2025 Lab Requisition [facility] - Main Lab [address] [facility] [employer] [place] [address] Chai Carias MD [address] [place] [address] [address] [place] Morbid (severe) obesity due to excess calories (CMS/HCC V24, CMS/HCC V28); Other hyperlipidemia Social History Tobacco Use Types Packs/Day Years [...] PANEL WITH REFLEX TO DIRECT LDL Routine 07/01/2025 6:50 AM EDT Morbid (severe) obesity due to excess calories (CMS/HCC V24, CMS/HCC V28) Other hyperlipidemia VITAMIN D 25 HYDROXY Routine 07/01/2025 6:50 AM EDT Morbid (severe) obesity due to excess calories (CMS/HCC V24, CMS/HCC V28) Other hyperlipidemia THYROID STIMULATING HORMONE Routine 07/01/2025 6:50 AM EDT Morbid (severe) obesity due to excess calories (CMS/HCC V24, CMS/HCC V28) Other hyperlipidemia documented in this encounter Results * Vitamin D 25 hydroxy (07/01/2025 6:50 AM EDT) Vit D, 25-Hydroxy 57.2 30.0 - 80.0 ng/mL LAB CHEMISTRY METHOD 07/01/2025 9:47 AM EDT [facility] Blood Venous blood specimen / Unknown 07/01/2025 6:50 AM EDT 07/01/2025 8:18 AM EDT us Chai Carias MD LAB BLOOD ORDERABLES Final Resul t Performing Organization Address [facility] Co de Phone Number [facility] [address] [place] [address], [place] [phone] * Thyroid stimulating hormone (07/01/2025 6:50 AM EDT) [facility] TSH 1.89 0.40 - 4.00 mcIU/mL LAB CHEMISTRY METHOD 07/01/2025 9:47 AM EDT [facility] Blood Venous blood specimen / Unknown 07/01/2025 6:50 AM EDT 07/01/2025 8:18 AM EDT us Chai Carias MD LAB BLOOD ORDERABLES Final Resul t Performing Organization Address [facility] de Phone Number [facility] [address] [place] [address], [place] [phone] * Lipid panel with reflex to direct LDL (07/01/2025 6:50 AM EDT) [facility] Cholesterol 118 0 - 200 mg/dL LAB CHEMISTRY METHOD 07/01/2025 8:51 AM EDT [facility] Triglycerides 131 0 - 150 mg/dL LAB CHEMISTRY METHOD 07/01/2025 8:51 AM EDT [facility] HDL 56 >=40 mg/dL LAB CHEMISTRY METHOD 07/01/2025 8:51 AM EDT [facility] LDL Calculated 36 0 - 100 mg/dL LAB CHEMISTRY METHOD 07/01/2025 8:51 AM EDT [facility] Comment:Estimated LDL Calcul ated using equation: Total cholesterol - HDL cholesterol - (Triglycerides/5) VLDL Cholesterol Josiah 26.2 mg/dL LAB CHEMISTRY METHOD 07/01/2025 8:51 AM EDT [facility] Non HDL Chol. (LDL+VLDL) 62 <145 mg/dL LAB CHEMISTRY METHOD 07/01/2025 8:51 AM EDT [facility] Chol/HDL Ratio 2.1 0.0 - 4.4 LAB CHEMISTRY METHOD 07/01/2025 8:51 AM EDT [facility] Blood Venous blood specimen / Unknown 07/01/2025 6:50 AM EDT 07/01/2025 8:18 AM EDT us Chai Carias MD LAB BLOOD ORDERABLES Final Resul t [facility] [address] [place] [address], documented in this encounter Visit Diagnoses Diagnosis Morbid (severe) obesity due to excess calories (CMS/HCC V24, CMS/HCC V28) Other hyperlipidemia documented in this encounter Care Teams Case Fitter Relationship Specialty Start Date End Date Rosa Castro MD [address] [place] [phone] PCP - General 03/14/25 documented as of this encounter
--- OUTSIDE RECORDS SUMMARY | 2025-07-03 15:50 | XMS_ITS | Encounter Summary ---
Author Organization [facility] Address [address] [place] [address] Care Team Providers Care Graduate Assistant Athletic Trainer Name Role Phone Rosa Castro MD Primary Care Provider [phone] Encounter Details Date Type Department Care Team (Late st Contact Info) Description 06/03/[address] [facility] - Main Lab [address] [facility] [place] [address] Chai Carias MD [address] [place] [address] [address] [place] Morbid (severe) obesity due to excess calories (CMS/HCC V24, CMS/HCC V28); Type 2 diabetes mellitus without complications (CMS/HCC V24, CMS/HCC V28) Social History Tobacco Use Types Packs/Day Years [...] Procedure Name Priority Date/Time Associated Diagnosis Comments LAVENDER - EDTA Routine 06/03/2025 7:04 AM EDT Morbid (severe) obesity due to excess calories (CMS/HCC V24, CMS/HCC V28) Type 2 diabetes mellitus without complications (CMS/HCC V24, CMS/HCC V28) COMPLETE BLOOD COUNT Routine 06/03/2025 7:04 AM EDT Morbid (severe) obesity due to excess calories (CMS/HCC V24, CMS/HCC V28) Type 2 diabetes mellitus without complications (CMS/HCC V24, CMS/HCC V28) HEMOGLOBIN A1C Routine 06/03/2025 7:04 AM EDT Morbid (severe) obesity due to excess calories (CMS/HCC V24, CMS/HCC V28) Type 2 diabetes mellitus without complications ([facility] V24, [facility] V28) COMPREHENSIVE METABOLIC PANEL Routine 06/03/2025 7:04 AM EDT Morbid (severe) obesity due to excess calories ([facility] V24, [facility] V28) Type 2 diabetes mellitus without complications ([facility] V24, [facility] V28) documented in this encounter Results * Lavender tube (06/03/2025 7:04 AM EDT) [facility] Extra Tube Hold for add-ons. 06/03/2025 9:01 AM EDT [facility] Comment:Auto resulted. Blood Venous blood specimen / Unknown 06/03/2025 7:04 AM EDT 06/03/2025 7:41 AM EDT us Chai Carias MD LAB BLOOD ORDERABLES Final Resul t Performing Organization Address [facility]/ZIP Co de Phone Number [facility] [address] [place] [address], [place] [phone] * Hemoglobin A1c (06/03/2025 7:04 AM EDT) [facility] Hemoglobin A1C 5.6 <6.5 % LAB CHEMISTRY METHOD 06/03/2025 11:23 AM EDT [facility] Mean Bld Glu Estim. 114 mg/dL LAB CHEMISTRY METHOD 06/03/2025 11:23 AM EDT [facility] Blood Venous blood specimen / Unknown 06/03/2025 7:04 AM EDT 06/03/2025 7:41 AM EDT us Chai Carias MD LAB BLOOD ORDERABLES Final Resul t Performing Organization Address City/[facility]/ZIP Co de Phone Number [facility] [address] [place] [address], [place] [phone] * (ABNORMAL) Comprehensive metabolic panel (06/03/2025 7:04 AM EDT) Sodium 138 133 - 145 mmol/L LAB CHEMISTRY METHOD 06/03/2025 8:19 AM [facility] Potassium 4.3 3.5 - 5.5 mmol/L LAB CHEMISTRY METHOD 06/03/2025 8:19 AM [facility] Chloride 102 96 - 110 mmol/L LAB CHEMISTRY METHOD 06/03/2025 8:19 AM [facility] CO2 27 21 - 32 mmol/L LAB CHEMISTRY METHOD 06/03/2025 8:19 AM [facility] Anion Gap 9 3 - 11 LAB CHEMISTRY METHOD 06/03/2025 8:19 AM [facility] Glucose 97 70 - 100 mg/dL LAB CHEMISTRY METHOD 06/03/2025 8:19 AM [facility] BUN 16 5 - 25 mg/dL LAB CHEMISTRY METHOD 06/03/2025 8:19 AM [facility] Creatinine 0.82 0.50 - 1.10 mg/dL LAB CHEMISTRY METHOD 06/03/2025 8:19 AM [facility] eGFR 79 >=60 mL/min/1. 73m2 LAB CHEMISTRY METHOD 06/03/2025 8:19 AM [facility] Comment:Calculation based on the Chronic Kidney Disease Epidemiology Collaboration (CKD-EPI) equation refit without adjustment for race. BUN/Creatinine Ratio 19.5 LAB CHEMISTRY METHOD 06/03/2025 8:19 AM [facility] Calcium 9.6 8.5 - 10.5 mg/dL LAB CHEMISTRY METHOD 06/03/2025 8:19 AM [facility] AST (SGOT) 21 10 - 42 unit/L LAB CHEMISTRY METHOD 06/03/2025 8:19 AM [facility] ALT (SGPT) 19 10 - 60 unit/L LAB CHEMISTRY METHOD 06/03/2025 8:19 AM EDT [facility] Alkaline Phosphatase 130(H) 42 - 121 unit/L LAB CHEMISTRY METHOD 06/03/2025 8:19 AM EDT [facility] Total Protein 7.0 6.0 - 8.0 g/dL LAB [facility]STR[facility] Albumin 3.3 3.2 - 5.0 g/dL LAB CHEMISTRY METHOD 06/03/2025 8:19 AM EDT [facility] Total Bilirubin 0.3 0.0 - 1.4 mg/dL LAB CHEMISTRY METHOD 06/03/2025 8:19 AM [facility] Blood Venous blood specimen / Unknown 06/03/2025 7:04 AM EDT 06/03/2025 7:41 AM EDT us Chai Carias MD LAB BLOOD ORDERABLES Final Resul t [facility] [address] [place] [address], [place] [phone] * (ABNORMAL) Complete blood count (06/03/2025 7:04 AM EDT) WBC 8.4 4.8 - 10.8 K/mcL LAB HEMETOLOGY METHOD 06/03/2025 8:10 AM T [facility] RBC 3.70(L) 3.80 - 4.80 M/mcL LAB HEMETOLOGY METHOD 06/03/2025 8:10 AM [facility] Hemoglobin 9.6(L) 11.5 - 16.0 g/dL LAB HEMETOLOGY METHOD 06/03/2025 8:10 AM [facility] Hematocrit 31.9(L) 35.0 - 47.0 % LAB HEMETOLOGY METHOD 06/03/2025 8:10 AM EDT [facility] MCV 86.0 79.0 - 98.0 FL LAB HEMETOLOGY METHOD 06/03/2025 8:10 AM EDT [facility] MCH 25.9(L) 27.0 - 32.0 pcg LAB HEMETOLOGY METHOD 06/03/2025 8:10 AM EDT [facility] MCHC 30.1(L) 32.0 - 37.0 g/dL LAB HEMETOLOGY METHOD 06/03/2025 8:10 AM EDT [facility] RDW 17.9(H) 11.0 - 15.0 % LAB HEMETOLOGY METHOD 06/03/2025 8:10 AM EDT [facility] Platelets 206 130 - 400 K/mcL LAB HEMETOLOGY METHOD 06/03/2025 8:10 AM EDT [facility] MPV 10.4 7.0 - 11.0 FL LAB HEMETOLOGY METHOD 06/03/2025 8:10 AM EDT [facility] NRBC 0.0 <1.0 % LAB HEMETOLOGY METHOD 06/03/2025 8:10 AM EDT [facility] NRBC Absolute 0.00 <0.10 K/mcL LAB HEMETOLOGY METHOD 06/03/2025 8:10 AM T [facility] Blood Venous blood specimen / Unknown 06/03/2025 7:04 AM EDT 06/03/2025 7:41 AM EDT us Chai Carias MD LAB BLOOD ORDERABLES Final Resul t [facility] [address] [place] [address], documented in this encounter Visit Diagnoses Diagnosis Morbid (severe) obesity due to excess calories (CMS/HCC V24, CMS/HCC V28) Type 2 diabetes mellitus without complications (CMS/HCC V24, CMS/HCC V28) documented in this encounter Care Teams Graduate Assistant Athletic Trainer Relationship Specialty Start Date End Date Rosa Castro MD [address] [place] [phone] PCP - General 03/14/25 documented as of this encounter
--- OUTSIDE RECORDS SUMMARY | 2025-07-03 15:51 | XMS_ITS | Encounter Summary ---
Author Organization [facility] Address [address] [place] [address] Care Team Providers Care Admissions Representative Name Role Phone Rosa Castro MD Primary Care Provider [phone] Encounter Details Date Type Department Care Team (Late st Contact Info) Description 12/24/2024 Lab Requisition [facility] [address] [place] [address] Chai Carias MD [address] [place] [address] [address] [place] Other hyperlipidemia; Other specified hypothyroidism; Vitamin D [...] LAB CHEMISTRY METHOD 12/24/2024 8:37 AM EST [facility] Blood Venous blood specimen / Unknown 12/24/2024 6:50 AM EST 12/24/2024 7:47 AM EST us Chai Carias MD LAB BLOOD ORDERABLES Final Resul t Performing Organization Address [facility]/ZIP Co de Phone Number [facility] [address] [place] [address], [place] [phone] * Thyroid stimulating hormone (12/24/2024 6:50 AM EST) TSH 2.16 0.40 - 4.00 mcIU/mL LAB CHEMISTRY METHOD 12/24/2024 8:37 AM EST [facility] Blood Venous blood specimen / Unknown 12/24/2024 6:50 AM EST 12/24/2024 7:47 AM EST us Chai Carias MD LAB BLOOD ORDERABLES Final Resul t Performing Organization Address City/[facility]/ZIP Co de Phone Number [facility] [address] [place] [address], [place] [phone] * Lipid panel with reflex to direct LDL (12/24/2024 6:50 AM EST) Cholesterol 139 0 - 200 mg/dL LAB CHEMISTRY METHOD 12/24/2024 8:27 AM [facility] Triglycerides 130 0 - 150 mg/dL LAB CHEMISTRY METHOD 12/24/2024 8:27 AM [facility] HDL 50 >=40 mg/dL LAB CHEMISTRY METHOD 12/24/2024 8:27 AM [facility] LDL Calculated 63 0 - 100 mg/dL LAB CHEMISTRY METHOD 12/24/2024 8:27 AM [facility] VLDL Cholesterol Josiah 26 mg/dL LAB CHEMISTRY METHOD 12/24/2024 8:27 AM EST [facility] Non HDL Chol. (LDL+VLDL) 89 <145 mg/dL LAB CHEMISTRY METHOD 12/24/2024 8:27 AM EST [facility] Chol/HDL Ratio 2.8 0.0 - 4.4 LAB CHEMISTRY METHOD 12/24/2024 8:27 AM EST [facility] Blood Venous blood specimen / Unknown 12/24/2024 6:50 AM EST 12/24/2024 7:47 AM EST us Chai Carias MD LAB BLOOD ORDERABLES Final Resul t [facility] [address] [place] [address], documented in this encounter Visit Diagnoses Diagnosis Other hyperlipidemia Other specified hypothyroidism Vitamin D deficiency, unspecified documented in this encounter Care Teams Admissions Representative Relationship Specialty Start Date End Date Rosa Castro MD [address] [place] [phone] PCP - General 03/14/25 documented as of this encounter
--- OUTSIDE RECORDS SUMMARY | 2025-07-03 15:51 | XMS_ITS | Clinical Summary ---
Author Organization [address] [facility] Address [address] [place] [address] Phone Care Team Providers Care Landfill Attendant Name Role Phone Rosa Castro MD Primary Care Provider [phone] Encounters Date Type Department Care Team Description 07/01/2025 Lab Requisition [facility] Lab [address] [place] [address] Chai Carias MD Morbid (severe) obesity due to excess calories (CMS/HCC V24, CMS/HCC V28); Other hyperlipidemia 06/03/2025 Lab Requisition [facility] [address] [place] [address] Chai Carias MD Morbid (severe) obesity due to excess calories (CMS/HCC V24, CMS/HCC V28); Type 2 diabetes mellitus without complications (CMS/HCC V24, CMS/HCC V28) from Last 3 Months Social History Tobacco [...] (1 - Tdap) 1976 Pneumococcal Vaccine: 50+ Years (1 of 2 - PCV) 1976 Zoster Vaccines (1 of 2) 2007 Colorectal Cancer Screening: Colonoscopy 08/19/2024 Falls Risk Assessment 08/19/2024 Hepatitis C Screening 08/19/2024 Medicare Annual Wellness Visit 08/19/2024 Osteoporosis Screening (Bone Density Screening) 08/19/2024 Social Influencers of Health Screening 08/19/2024 Depression Screening 10/24/2024 Diabetes: Annual Urine Albumin-Creatinine Ratio (uACR) 03/08/2025 COVID-19 Vaccine ( - 2023-2 5 season) 2025 Influenza Vaccine (#1) 2025 Diabetes: Blood Sugar Contro l Test (HGBA1C) 12/04/2025 06/03/2025, 03/08/2025, 11/27/2024 Diabetes: Annual GFR (Glomerular Filtration Rate) 06/03/2026 06/03/2025, 03/08/2025, 11/27/2024 Cholesterol Screening (Lipid Panel) 07/01/2030 07/01/2025, 12/24/2024 RSV Immunization Adult Patients (1 - 1-dose 75+ series) 2032 HIB [...] age to complete this topic Meningococcal B Vaccine Aged Out No l onger eligible based on patient's age to complete this topic RSV Immunization Patients Under 20 months Aged Out No longer eligible b ased on patient's age to complete this topic Varicella Vaccines Aged Out No longer eligible based on patient's age to complete this topic Procedures Procedure Name Priority Date/Time Associated Diagnosis Comments VITAMIN D 25 HYDROXY Routine 07/01/2025 6:50 AM EDT Morbid (severe) obesity due to excess calories (CMS/HCC V24, CMS/HCC V28) Other hyperlipidemia THYROID STIMULATING HORMONE Routine 07/01/2025 6:50 AM EDT Morbid (severe) obesity due to excess calories (CMS/HCC V24, CMS/HCC V28) Other hyperlipidemia LIPID PANEL WITH REFLEX TO DIRECT LDL Routine 07/01/2025 6:50 AM EDT Morbid (severe) obesity due to excess calories (CMS/HCC V24, CMS/HCC V28) Other hyperlipidemia LAVENDER - EDTA Routine 06/03/2025 7:04 AM EDT Morbid (severe) obesity due to excess calories (CMS/HCC V24, CMS/HCC V28) Type 2 diabetes mellitus without complications (CMS/HCC V24, CMS/HCC V28) HEMOGLOBIN A1C Routine 06/03/2025 7:04 AM EDT Morbid (severe) obesity due to excess calories (CMS/HCC V24, CMS/HCC V28) Type 2 diabetes mellitus without complications (CMS/HCC V24, CMS/HCC V28) COMPREHENSIVE METABOLIC PANEL Routine 06/03/2025 7:04 AM EDT Morbid (severe) obesity due to excess calories (CMS/HCC V24, CMS/HCC V28) Type 2 diabetes mellitus without complications (CMS/HCC V24, CMS/HCC V28) COMPLETE BLOOD COUNT Routine 06/03/2025 7:04 AM EDT Morbid (severe) obesity due to excess calories (CMS/HCC V24, CMS/HCC V28) Type 2 diabetes mellitus without complications (CMS/HCC V24, CMS/HCC V28) from Last 3 Months Results * Lipid panel with reflex to direct LDL (07/01/2025 6:50 AM EDT) Cholesterol 118 0 - 200 mg/dL LAB CHEMISTRY METHOD 07/01/2025 8:51 AM EDT [facility] Triglycerides 131 0 - 150 mg/dL LAB CHEMISTRY METHOD 07/01/2025 8:51 AM EDT [facility] HDL 56 >=40 mg/dL LAB CHEMISTRY METHOD 07/01/2025 8:51 AM EDT [facility] LDL Calculated 36 0 - 100 mg/dL LAB CHEMISTRY METHOD 07/01/2025 8:51 AM [facility] Comment:Estimated LDL Calcul ated using equation: Total cholesterol - HDL cholesterol - (Triglycerides/5) VLDL Cholesterol Josiah 26.2 mg/dL LAB CHEMISTRY METHOD 07/01/2025 8:51 AM EDT [facility] Non HDL Chol. (LDL+VLDL) 62 <145 mg/dL LAB CHEMISTRY METHOD 07/01/2025 8:51 AM EDT [facility] Chol/HDL Ratio 2.1 0.0 - 4.4 LAB CHEMISTRY METHOD 07/01/2025 8:51 AM EDT [facility] Blood Venous blood specimen / Unknown 07/01/2025 6:50 AM EDT 07/01/2025 8:18 AM EDT us Chai Carias MD LAB BLOOD ORDERABLES Final Resul t Performing Organization Address City/[facility]/ZIP Co de Phone Number [facility] [address] [place] [address], * Vitamin D 25 hydroxy (07/01/2025 6:50 AM EDT) Vit D, 25-Hydroxy 57.2 30.0 - 80.0 ng/mL LAB CHEMISTRY METHOD 07/01/2025 9:47 AM EDT [facility] Blood Venous blood specimen / Unknown 07/01/2025 6:50 AM EDT 07/01/2025 8:18 AM EDT us Chai Carias MD LAB BLOOD ORDERABLES Final Resul t [facility] [address] [place] [address], [place] [phone] * Thyroid stimulating hormone (07/01/2025 6:50 AM EDT) TSH 1.89 0.40 - 4.00 mcIU/mL LAB CHEMISTRY METHOD 07/01/2025 9:47 AM EDT [facility] Blood Venous blood specimen / Unknown 07/01/2025 6:50 AM EDT 07/01/2025 8:18 AM EDT us Chai Carias MD LAB BLOOD ORDERABLES Final Resul t Performing Organization Address [facility]/ZIP Co de Phone Number [facility] [address] [place] [address], [place] [phone] * Lavender tube (06/03/2025 7:04 AM EDT) Pathologist [facility] Extra Tube Hold for add-ons. 06/03/2025 9:01 AM EDT [facility] Comment:Auto resulted. Blood Venous blood specimen / Unknown 06/03/2025 7:04 AM EDT 06/03/2025 7:41 AM EDT us Chai Craias MD LAB BLOOD ORDERABLES Final Resul t Performing Organization Address [facility] de Phone Number [facility] [address] [place] [address], [place] [phone] * (ABNORMAL) Complete blood count (06/03/2025 7:04 AM EDT) [facility] WBC 8.4 4.8 - 10.8 K/[facility] LAB HEMETOLOGY METHOD 06/03/2025 8:10 AM EDT [facility] RBC 3.70(L) 3.80 - 4.80 M/[facility] LAB HEMETOLOGY METHOD 06/03/2025 8:10 AM EDT [facility] Hemoglobin 9.6(L) 11.5 - 16.0 g/dL LAB HEMETOLOGY METHOD 06/03/2025 8:10 AM EDT [facility] Hematocrit 31.9(L) 35.0 - 47.0 % LAB HEMETOLOGY METHOD 06/03/2025 8:10 AM EDT [facility] MCV 86.0 79.0 - 98.0 FL LAB HEMETOLOGY METHOD 06/03/2025 8:10 AM EDT [facility] MCH 25.9(L) 27.0 - 32.0 pcg LAB HEMETOLOGY METHOD 06/03/2025 8:10 AM EDT [facility] MCHC 30.1(L) 32.0 - 37.0 g/dL LAB HEMETOLOGY METHOD 06/03/2025 8:10 AM EDT [facility] RDW 17.9(H) 11.0 - 15.0 % LAB HEMETOLOGY METHOD 06/03/2025 8:10 AM EDT [facility] Platelets 206 130 - 400 K/mcL LAB HEMETOLOGY METHOD 06/03/2025 8:10 AM EDT [facility] MPV 10.4 7.0 - 11.0 FL LAB HEMETOLOGY METHOD 06/03/2025 8:10 AM EDT [facility] NRBC 0.0 <1.0 % LAB HEMETOLOGY METHOD 06/03/2025 8:10 AM EDT [facility] NRBC Absolute 0.00 <0.10 K/mcL LAB HEMETOLOGY METHOD 06/03/2025 8:10 AM EDT [facility] Blood Venous blood specimen / Unknown 06/03/2025 7:04 AM EDT 06/03/2025 7:41 AM EDT us Chai Carias MD LAB BLOOD ORDERABLES Final Resul t [facility] [address] [place] [address], * Hemoglobin A1c (06/03/2025 7:04 AM EDT) Hemoglobin A1C 5.6 <6.5 % LAB CHEMISTRY METHOD 06/03/2025 11:23 AM [facility] Mean Bld Glu Estim. 114 mg/dL LAB CHEMISTRY METHOD 06/03/2025 11:23 AM [facility] Blood Venous blood specimen / Unknown 06/03/2025 7:04 AM EDT 06/03/2025 7:41 AM EDT us Chai Carias MD LAB BLOOD ORDERABLES Final Resul t [facility] [address] [place] [address], [place] [phone] * (ABNORMAL) Comprehensive metabolic panel (06/03/2025 7:04 AM EDT) Sodium 138 133 - 145 mmol/L LAB CHEMISTRY METHOD 06/03/2025 8:19 AM [facility] Potassium 4.3 3.5 - 5.5 mmol/L LAB CHEMISTRY METHOD 06/03/2025 8:19 AM [facility] Chloride 102 96 - 110 mmol/L LAB CHEMISTRY METHOD 06/03/2025 8:19 AM [facility] CO2 27 21 - 32 mmol/L LAB CHEMISTRY METHOD 06/03/2025 8:19 AM [facility] Anion Gap 9 3 - 11 LAB CHEMISTRY METHOD 06/03/2025 8:19 AM [facility] Glucose 97 70 - 100 mg/dL LAB CHEMISTRY METHOD 06/03/2025 8:19 AM [facility] BUN 16 5 - 25 mg/dL LAB CHEMISTRY METHOD 06/03/2025 8:19 AM [facility] Creatinine 0.82 0.50 - 1.10 mg/dL LAB CHEMISTRY METHOD 06/03/2025 8:19 AM [facility] eGFR 79 >=60 mL/min/1. 73m2 LAB CHEMISTRY METHOD 06/03/2025 8:19 AM [facility] Comment:Calculation based on the Chronic Kidney Disease Epidemiology Collaboration (CKD-EPI) equation refit without adjustment for race. BUN/Creatinine Ratio 19.5 LAB CHEMISTRY METHOD 06/03/2025 8:19 AM [facility] Calcium 9.6 8.5 - 10.5 mg/dL LAB CHEMISTRY METHOD 06/03/2025 8:19 AM [facility] AST (SGOT) 21 10 - 42 unit/L LAB CHEMISTRY METHOD 06/03/2025 8:19 AM [facility] ALT (SGPT) 19 10 - 60 unit/L LAB CHEMISTRY METHOD 06/03/2025 8:19 AM [facility] Alkaline Phosphatase 130(H) 42 - 121 unit/L LAB CHEMISTRY METHOD 06/03/2025 8:19 AM [facility] Total Protein 7.0 6.0 - 8.0 g/dL LAB CHEMISTRY METHOD 06/03/2025 8:19 AM [facility] Albumin 3.3 3.2 - 5.0 g/dL LAB CHEMISTRY METHOD 06/03/2025 8:19 AM [facility] Total Bilirubin 0.3 0.0 - 1.4 mg/dL LAB CHEMISTRY METHOD 06/03/2025 8:19 AM [facility] Blood Venous blood specimen / Unknown 06/03/2025 7:04 AM EDT 06/03/2025 7:41 AM EDT us Chai Carias MD LAB BLOOD ORDERABLES Final Resul t [facility] [address] [place] [address], from Last 3 [id number] [phone] MEDICARE [facility] MEDICARE MEDICAID - [place] Care Teams Landfill Attendant Relationship Specialty Start Date End Date Rosa Castro MD [address] [place] [phone] PCP - General 03/14/25
--- OUTSIDE RECORDS SUMMARY | 2025-07-03 15:51 | XMS_ITS | Encounter Summary ---
[facility] Address [address] [place] [address] Care Team Providers Care It Programmer Analyst Name Role Phone Rosa Castor MD Primary Care Provider [phone] Encounter Details Date Type Department Care Team (Late st Contact Info) Description 01/10/2025 Lab Requisition [facility] Lab [address] [place] [address] Chai Carias MD [address] [place] [address] [address] [place] Dysuria Social History Tobacco Use Types Packs/Day [...] reflex microscopic (01/09/2025 7:00 PM EDT) Specific [place] Urine 1.021 1.003 - 1.030 LAB URINALYSIS - AUTOMATED METHOD 01/10/2025 8:20 AM EDT [facility] pH, Urine 5.5 5.0 - 8.0 pH LAB URINALYSIS - [facility]OMATED METHOD [facility] Leukocytes, Urine Large(A) Negative LAB URINALYSIS - AUTOMATED METHOD 01/10/2025 8:20 AM [facility] Nitrite, Urine Positive(A) Negative LAB URINALYSIS - AUTOMATED METHOD 01/10/2025 8:20 AM [facility] Protein, Urine Trace <=Trace mg/dL LAB URINALYSIS - AUTOMATED METHOD 01/10/2025 8:20 AM [facility] Glucose, Urine Negative Negative mg/dL LAB URINALYSIS - AUTOMATED METHOD 01/10/2025 8:20 AM [facility] Ketones, Urine Negative Negative mg/dL LAB URINALYSIS - AUTOMATED METHOD 01/10/2025 8:20 AM [facility] Urobilinogen , Urine 1.0 0.2 - 1.0 mg/dL LAB URINALYSIS - AUTOMATED METHOD 01/10/2025 8:20 AM [facility] Bilirubin, Urine Negative Negative LAB URINALYSIS - AUTOMATED METHOD 01/10/2025 8:20 AM [facility] Blood, Urine Negative Negative LAB URINALYSIS - AUTOMATED METHOD 01/10/2025 8:20 AM [facility] RBC, Urine 1.0 0 - 4 /HPF LAB URINALYSIS - AUTOMATED METHOD 01/10/2025 8:20 AM [facility] WBC, Urine 90.1(H) 0 - 4 /HPF LAB URINALYSIS - AUTOMATED METHOD 01/10/2025 8:20 AM [facility] Squamous Epithelial, Urine 62(H) 0 - 60 /LPF LAB URINALYSIS - AUTOMATED METHOD 01/10/2025 8:20 AM [facility] Crystals, Urine LT CALCIUM OXALATE /LPF LAB URINALYSIS - AUTOMATED METHOD 01/10/2025 8:20 AM [facility] Bacteria, Urine Many(A) Negative /HPF LAB URINALYSIS - AUTOMATED METHOD 01/10/2025 8:20 AM EDT [facility] Hyaline Casts, Urine 1.2 0 - 3 /LPF LAB URINALYSIS - AUTOMATED METHOD 01/10/2025 8:20 AM EDT [facility] Urine Urine specimen obtained by clean catch procedure / Unknown 01/09/2025 7:00 PM EDT 01/10/2025 7:31 AM EDT us Chai Carias MD LAB URINE ORDERABLES Final Resul t Performing Organization Address City/[facility]/ZIP Co de Phone Number [facility] [address] [place] [address], [place] [phone] * Culture urine (01/09/2025 7:00 PM EDT) Culture, Urine >100,000 CFU/mL Mixed bacterial morphotypes present suggestive of possible contamination during collection. Suggest appropriate recollection if clinically indicated. 01/11/2025 10:19 AM EDT [facility] Urine Urine specimen obtained by clean catch procedure / Unknown 01/09/2025 7:00 PM EDT 01/10/2025 7:31 AM EDT us Chai Carias MD LAB MICROBIOLOGY - GENERAL ORDER CHANTELLE Final Result Performing Organization Address City/[facility]/ZIP Co de Phone Number [facility] [address] [place] [address], [place] [phone] documented in this encounter Visit Diagnoses Diagnosis Dysuria documented in this encounter Care Teams It Programmer Analyst Relationship Specialty Start Date End Date Rosa Castro MD [address] [place] [address] [phone] PCP - General 03/14/25 documented as of this encounter
--- OUTSIDE RECORDS SUMMARY | 2025-07-03 15:51 | XMS_ITS | Encounter Summary ---
[facility] Organization [facility] Address [address] [place] [address] Care Team Providers Care Director Of Rehabilitation And Wellness Name Role Phone Rosa Castro MD Primary Care Provider [phone] Encounter Details Date Type Department Care Team (Late st Contact Info) Description 11/27/2024 Lab Requisition [facility] Lab [address] [place] [address] Chai Carias MD [address] [place] [address] [address] [place] Type 2 diabetes mellitus with unspecified complications (CMS/HCC V24, CMS/HCC V28) Social History [...] AM EST) WBC 8.6 4.8 - 10.8 K/[facility] LAB HEMETOLOGY METHOD 11/27/2024 8:11 AM EST [facility] RBC 3.70(L) 3.80 - 4.80 M/mcL LAB HEMETOLOGY METHOD 11/27/2024 8:11 AM [facility] Hemoglobin 10.2(L) 11.5 - 16.0 g/dL LAB HEMETOLOGY METHOD 11/27/2024 8:11 AM [facility] Hematocrit 31.8(L) 35.0 - 47.0 % LAB HEMETOLOGY METHOD 11/27/2024 8:11 AM [facility] MCV 86.2 79.0 - 98.0 FL LAB HEMETOLOGY METHOD 11/27/2024 8:11 AM [facility] MCH 27.6 27.0 - 32.0 pcg LAB HEMETOLOGY METHOD 11/27/2024 8:11 AM [facility] LAB MCHC 32.1 32.0 - 37.0 g/dL LAB HEMETOLOGY METHOD 11/27/2024 8:11 AM [facility] RDW 16.3(H) 11.0 - 15.0 % LAB HEMETOLOGY METHOD 11/27/2024 8:11 AM [facility] LAB Platelets 206 130 - 400 K/mcL LAB HEMETOLOGY METHOD 11/27/2024 8:11 AM [facility] MPV 9.9 7.0 - 11.0 FL LAB HEMETOLOGY METHOD 11/27/2024 8:11 AM [facility] NRBC 0.0 <1.0 % LAB HEMETOLOGY METHOD 11/27/2024 8:11 AM [facility] NRBC Absolute 0.00 <0.10 K/mcL LAB HEMETOLOGY METHOD 11/27/2024 8:11 AM [facility] Blood Venous blood specimen / Unknown 11/27/2024 7:01 AM EST 11/27/2024 8:05 AM EST us Chai Carias MD LAB BLOOD ORDERABLES Final Resul t [facility] [address] [place] [address], [place] [phone] * Hemoglobin A1c (11/27/2024 7:01 AM EST) Pathologist [facility] Hemoglobin A1C 5.9 <6.5 % LAB CHEMISTRY METHOD 11/27/2024 2:05 PM EST [facility] Mean Bld Glu Estim. 123 mg/dL LAB CHEMISTRY METHOD 11/27/2024 2:05 PM [facility] Blood Venous blood specimen / Unknown 11/27/2024 7:01 AM EST 11/27/2024 8:05 AM EST us Chai Carias MD LAB BLOOD ORDERABLES Final Resul t Performing Organization Address [facility]/ZIP Co de Phone Number [facility] [address] [place] [address], [place] [phone] * (ABNORMAL) Comprehensive metabolic panel (11/27/2024 7:01 AM EST) [facility] Sodium 138 133 - 145 mmol/L LAB CHEMISTRY METHOD 11/27/2024 8:37 AM [facility] Potassium 4.2 3.5 - 5.5 mmol/L LAB CHEMISTRY METHOD 11/27/2024 8:37 AM [facility] Chloride 105 96 - 110 mmol/L LAB CHEMISTRY METHOD 11/27/2024 8:37 AM [facility] CO2 25 21 - 32 mmol/L LAB CHEMISTRY METHOD 11/27/2024 8:37 AM [facility] Anion Gap 8 3 - 11 LAB CHEMISTRY METHOD 11/27/2024 8:37 AM [facility] Glucose 86 70 - 100 mg/dL LAB CHEMISTRY METHOD 11/27/2024 8:37 AM [facility] BUN 16 5 - 25 mg/dL LAB CHEMISTRY METHOD 11/27/2024 8:37 AM [facility] Creatinine 0.76 0.50 - 1.10 mg/dL LAB CHEMISTRY METHOD 11/27/2024 8:37 AM [facility] eGFR 86 >=60 mL/min/1. 73m2 LAB CHEMISTRY METHOD 11/27/2024 8:37 AM [facility] Comment:Calculation based on the Chronic Kidney Disease Epidemiology Collaboration (CKD-EPI) equation refit without adjustment for race. BUN/Creatinine Ratio 21.1 LAB CHEMISTRY METHOD 11/27/2024 8:37 AM [facility] Calcium 8.8 8.5 - 10.5 mg/dL LAB CHEMISTRY METHOD 11/27/2024 8:37 AM [facility] AST (SGOT) 31 10 - 42 unit/L LAB CHEMISTRY METHOD 11/27/2024 8:37 AM [facility] ALT (SGPT) 23 10 - 60 unit/L LAB CHEMISTRY METHOD 11/27/2024 8:37 AM [facility] Alkaline Phosphatase 128(H) 42 - 121 unit/L LAB CHEMISTRY METHOD 11/27/2024 8:37 AM [facility] Total Protein 6.8 6.0 - 8.0 g/dL LAB CHEMISTRY METHOD 11/27/2024 8:37 AM [facility] Albumin 3.0(L) 3.2 - 5.0 g/dL LAB CHEMISTRY METHOD 11/27/2024 8:37 AM [facility] Total Bilirubin 0.4 0.0 - 1.4 mg/dL LAB CHEMISTRY METHOD 11/27/2024 8:37 AM [facility] Blood Venous blood specimen / Unknown 11/27/2024 7:01 AM EST 11/27/2024 8:05 AM EST us Chai Carias MD LAB BLOOD ORDERABLES Final Resul t [facility] LAB [address] [place] [address], documented in this encounter Visit Diagnoses Diagnosis Type 2 diabetes mellitus with unspecified complications (CMS/HCC V24, CMS/HCC V28) documented in this encounter Care Teams Director Of Rehabilitation And Wellness Relationship Specialty Start Date End Date Rosa Castro MD [address] [place] [address] [phone] PCP - General 03/14/25 documented as of this encounter
--- OUTSIDE RECORDS SUMMARY | 2025-07-03 15:51 | XMS_ITS | Encounter Summary ---
Author Organization [facility] Address [address] [place] [address] Care Team Providers Care Hospice Manager Name Role Phone Rosa Castro MD Primary Care Provider [phone] Encounter Details Date Type Department Care Team (Late st Contact Info) Description 01/04/2025 Lab Requisition [facility] - Main Lab [address] [facility] [place] [address] Chai Carias MD [address] [place] [address] Dr [address] [place], [place] Personal history of pulmonary embolism Social History [...] LAB COAGULATION METHOD 01/04/2025 6:23 PM EDT [facility] Blood Venous blood specimen / Unknown 01/04/2025 5:15 PM EDT 01/04/2025 6:09 PM EDT Narrative [facility] - 01/04/2025 6:23 PM EDT D-Dimer <230 ng/mL (D-Dimer units) is the threshold for exclusion of DVT/PE. D-Dimer may be elevated in: Critically ill, severely infected, trauma patients, DIC, acute CVA, acute SD, unstable angina, AF, old age, , and smoking. D-Dimer may be decreased with: Initiation of heparin therapy and oral anticoagulants. Chai Carias MD LAB BLOOD ORDERABLES Final Resul t [facility] ([facility]) [facility] LAB [address] [place] [address], documented in this encounter Visit Diagnoses Diagnosis Personal history of pulmonary embolism documented in this encounter Care Teams Hospice Manager Relationship Specialty Start Date End Date Rosa Castro MD [address] [place] [address] [phone] PCP - General 03/14/25 documented as of this encounter
--- OUTSIDE RECORDS SUMMARY | 2025-07-03 15:51 | XMS_ITS | Encounter Summary ---
[facility] Organization [facility] Address [address] [place] [address] Care Team Providers Care Inspector Coated Fabrics Name Role Phone Rosa Castro MD Primary Care Provider [phone] Encounter Details Date Type Department Care Team (Late st Contact Info) Description 10/30/2024 Lab Requisition [facility] Lab [address] [place] [address] Chai Carias MD [address] [place] [address] [address] [place] Mixed incontinence Social History Tobacco Use Types [...] reflex microscopic (10/30/2024 12:45 PM EST) Specific [place] Urine 1.012 1.003 - 1.030 LAB URINALYSIS - AUTOMATED METHOD 10/30/2024 5:14 PM EST [facility] pH, Urine 6.0 5.0 - 8.0 pH LAB URINALYSIS - AUTOMATED METHOD 10/30/2024 5:14 PM EST [facility] Leukocytes, Urine Moderate(A) Negative LAB URINALYSIS - AUTOMATED METHOD 10/30/2024 5:14 PM [facility] Nitrite, Urine Positive(A) Negative LAB URINALYSIS - AUTOMATED METHOD 10/30/2024 5:14 PM [facility] Protein, Urine Negative <=Trace mg/dL LAB URINALYSIS - AUTOMATED METHOD 10/30/2024 5:14 PM [facility] Glucose, Urine Negative Negative mg/dL LAB URINALYSIS - AUTOMATED METHOD 10/30/2024 5:14 PM [facility] Ketones, Urine Negative Negative mg/dL LAB URINALYSIS - AUTOMATED METHOD 10/30/2024 5:14 PM [facility] Urobilinogen , Urine 1.0 0.2 - 1.0 mg/dL LAB URINALYSIS - AUTOMATED METHOD 10/30/2024 5:14 PM [facility] Bilirubin, Urine Negative Negative LAB URINALYSIS - AUTOMATED METHOD 10/30/2024 5:14 PM [facility] Blood, Urine Negative Negative LAB URINALYSIS - AUTOMATED METHOD 10/30/2024 5:14 PM [facility] RBC, Urine 4.0 0 - 4 /HPF LAB URINALYSIS - AUTOMATED METHOD 10/30/2024 5:14 PM [facility] WBC, Urine 52.6(H) 0 - 4 /HPF LAB URINALYSIS - AUTOMATED METHOD 10/30/2024 5:14 PM [facility] Squamous Epithelial, Urine 29 0 - 60 /LPF LAB URINALYSIS - AUTOMATED METHOD 10/30/2024 5:14 PM [facility] Bacteria, Urine Many(A) Negative /HPF LAB URINALYSIS - AUTOMATED METHOD 10/30/2024 5:14 PM [facility] Hyaline Casts, Urine 0.4 0 - 3 /LPF LAB URINALYSIS - AUTOMATED METHOD 10/30/2024 5:14 PM EST [facility] Urine Urine specimen obtained by clean catch procedure / Unknown Non-blood Collection / Unknown 10/30/2024 12:45 PM EST 10/30/2024 2:55 PM EST us Chai Carias MD LAB URINE ORDERABLES Final Resul t [facility] [address] [place] [address], * (ABNORMAL) Culture urine (10/30/2024 12:45 PM EST) Culture, Urine >100,000 CFU/mL Escherichia coli(A) NADER 11/01/2024 11:05 AM EST [facility] Urine Urine specimen obtained by clean catch procedure / Unknown Non-blood Collection / Unknown 10/30/2024 12:45 PM EST 10/30/2024 3:14 PM EST Narrative [facility] - 11/01/2024 11:05 AM EST [...] MICROBIOLOGY - GENERAL ORDER CHANTELLE Final Result [facility] ([facility]) [facility] [address] [place] [address], documented in this encounter Visit Diagnoses Diagnosis Mixed incontinence Mixed incontinence urge and stress (male)(female) documented in this encounter Care Teams Inspector Coated Fabrics Relationship Specialty Start Date End Date Rosa Castro MD [address] [place] [address] [phone] PCP - General 03/14/25 documented as of this encounter
--- OUTSIDE RECORDS SUMMARY | 2025-07-03 15:51 | XMS_ITS | Encounter Summary ---
[facility] Organization [facility] Address [address] [place] [address] Care Team Providers Care Mobile Crane Operator Name Role Phone Rosa Castro MD Primary Care Provider [phone] Encounter Details Date Type Department Care Team (Late st Contact Info) Description 03/08/[address] [facility] - Main Lab 299 [facility] [place] [address] Chai Carias MD [address] [place] [address] [address] [place] Type 2 diabetes mellitus without complications (CMS/HCC [...] Associated Diagnosis Comments LAVENDER - EDTA Routine 03/08/2025 7:00 AM EDT Type 2 diabetes mellitus without complications (CMS/HCC V24, CMS/HCC V28) COMPLETE BLOOD COUNT Routine 03/08/2025 7:00 AM EDT Type 2 diabetes mellitus without complications (CMS/HCC V24, CMS/HCC V28) HEMOGLOBIN A1C Routine 03/08/2025 7:00 AM EDT Type 2 diabetes mellitus without complications (CMS/HCC V24, CMS/HCC V28) COMPREHENSIVE METABOLIC PANEL Routine 03/08/2025 7:00 AM EDT Type 2 diabetes mellitus without complications (CMS/HCC V24, CMS/HCC V28) documented in this encounter Results * Lavender tube (03/08/2025 7:00 AM EDT) [facility] Extra Tube Hold for add-ons. 03/08/2025 9:01 AM EDT [facility] Comment:Auto resulted. Blood Venous blood specimen / Unknown 03/08/2025 7:00 AM EDT 03/08/2025 7:57 AM EDT us Chai Carias MD LAB BLOOD ORDERABLES Final Resul t Performing Organization Address [facility]/ZIP Co de Phone Number [facility] [address] [place] [address], [place] [phone] * Hemoglobin A1c (03/08/2025 7:00 AM EDT) [facility] Hemoglobin A1C 5.8 <6.5 % LAB CHEMISTRY METHOD 03/08/2025 12:00 PM EDT [facility] Mean Bld Glu Estim. 120 mg/dL LAB CHEMISTRY METHOD 03/08/2025 12:00 PM EDT [facility] Blood Venous blood specimen / Unknown 03/08/2025 7:00 AM EDT 03/08/2025 7:45 AM EDT us Chai Carias MD LAB BLOOD ORDERABLES Final Resul t Performing Organization Address City/[facility]/ZIP Co de Phone Number [facility] [address] [place] [address], [place] [phone] * (ABNORMAL) Complete blood count (03/08/2025 7:00 AM EDT) [facility] WBC 8.4 4.8 - 10.8 K/[facility] LAB HEMETOLOGY METHOD 03/08/2025 8:30 AM EDT [facility] RBC 4.10 3.80 - 4.80 M/[facility] LAB HEMETOLOGY METHOD 03/08/2025 8:30 AM EDT [facility] Hemoglobin 11.0(L) 11.5 - 16.0 g/dL LAB HEMETOLOGY METHOD 03/08/2025 8:30 AM EDT [facility] Hematocrit 35.3 35.0 - 47.0 % LAB HEMETOLOGY METHOD 03/08/2025 8:30 AM EDT [facility] MCV 87.2 79.0 - 98.0 FL LAB HEMETOLOGY METHOD 03/08/2025 8:30 AM EDT [facility] MCH 27.2 27.0 - 32.0 pcg LAB HEMETOLOGY METHOD 03/08/2025 8:30 AM EDT [facility] MCHC 31.2(L) 32.0 - 37.0 g/dL LAB HEMETOLOGY METHOD 03/08/2025 8:30 AM EDT [facility] RDW 16.9(H) 11.0 - 15.0 % LAB HEMETOLOGY METHOD 03/08/2025 8:30 AM EDT [facility] Platelets 194 130 - 400 K/mcL LAB HEMETOLOGY METHOD 03/08/2025 8:30 AM EDT [facility] MPV 10.2 7.0 - 11.0 FL LAB HEMETOLOGY METHOD 03/08/2025 8:30 AM EDT [facility] NRBC 0.0 <1.0 % LAB HEMETOLOGY METHOD 03/08/2025 8:30 AM EDT [facility] NRBC Absolute 0.00 <0.10 K/mcL LAB HEMETOLOGY METHOD 03/08/2025 8:30 AM EDT [facility] Blood Venous blood specimen / Unknown 03/08/2025 7:00 AM EDT 03/08/2025 7:45 AM EDT us Chai Carias MD LAB BLOOD ORDERABLES Final Resul t [facility] [address] [place] [address], [place] [phone] * (ABNORMAL) Comprehensive metabolic panel (03/08/2025 7:00 AM EDT) Sodium 140 133 - 145 mmol/L LAB CHEMISTRY METHOD 03/08/2025 9:04 AM [facility] Potassium 4.2 3.5 - 5.5 mmol/L LAB CHEMISTRY METHOD 03/08/2025 9:04 AM [facility] Chloride 104 96 - 110 mmol/L LAB CHEMISTRY METHOD 03/08/2025 9:04 AM [facility] CO2 27 21 - 32 mmol/L LAB CHEMISTRY METHOD 03/08/2025 9:04 AM [facility] Anion Gap 9 3 - 11 LAB CHEMISTRY METHOD 03/08/2025 9:04 AM [facility] Glucose 84 70 - 100 mg/dL LAB CHEMISTRY METHOD 03/08/2025 9:04 AM [facility] BUN 18 5 - 25 mg/dL LAB CHEMISTRY METHOD 03/08/2025 9:04 AM [facility] Creatinine 0.76 0.50 - 1.10 mg/dL LAB CHEMISTRY METHOD 03/08/2025 9:04 AM [facility] eGFR 86 >=60 mL/min/1. 73m2 LAB CHEMISTRY METHOD 03/08/2025 9:04 AM [facility] Comment:Calculation based on the Chronic Kidney Disease Epidemiology Collaboration (CKD-EPI) equation refit without adjustment for race. BUN/Creatinine Ratio 23.7 LAB CHEMISTRY METHOD 03/08/2025 9:04 AM [facility] Calcium 9.0 8.5 - 10.5 mg/dL LAB CHEMISTRY METHOD 03/08/2025 9:04 AM [facility] AST (SGOT) 33 10 - 42 unit/L LAB CHEMISTRY METHOD 03/08/2025 9:04 AM EDT [facility] ALT (SGPT) 26 10 - 60 unit/L LAB CHEMISTRY METHOD 03/08/2025 9:04 AM T [facility] Alkaline Phosphatase 148(H) 42 - 121 unit/L LAB CHEMISTRY METHOD 03/08/2025 9:04 AM T [facility] Total Protein 7.2 6.0 - 8.0 g/dL LAB CHEMISTRY METHOD 03/08/2025 9:04 AM T [facility] Albumin 3.1(L) 3.2 - 5.0 g/dL LAB CHEMISTRY METHOD 03/08/2025 9:04 AM [facility] Total Bilirubin 0.4 0.0 - 1.4 mg/dL LAB CHEMISTRY METHOD 03/08/2025 9:04 AM [facility] Blood Venous blood specimen / Unknown 03/08/2025 7:00 AM EDT 03/08/2025 7:45 AM EDT us Chai Carias MD LAB BLOOD ORDERABLES Final Resul t [facility] [address] [place] [address], [place] [phone] documented in this encounter Visit Diagnoses Diagnosis Type 2 diabetes mellitus without complications (CMS/HCC V24, CMS/HCC V28) documented in this encounter Care Teams Mobile Crane Operator Relationship Specialty Start Date End Date Rosa Castro MD [address] [place] [address] [phone] PCP - General 03/14/25 documented as of this encounter
== END 2025-07-03 13:22 | disposition home or self-care (01) ==
LOC: HO.HWS 12:51
PROVIDERS: PCP Hospitalist; Visit Provider Obstetrics & Gynecology
DX: R10.2 Pelvic and perineal pain (principal)
CPT/HCPCS: 99213

== ENCOUNTER 2025-07-23 10:06 | Outpatient (REF) | payer MEDICARE, SELFPAY ==
--- OUTSIDE RECORDS SUMMARY | 2019-07-17 06:42 | XMS_ITS | Continuity of Care Document ---
Author Organization [facility] Address [address] [place] [address] Phone Care Team Providers Care Anode Machine Operator Name Role Phone Akil Canas OD Unavailable [...] [facility], [address], [place], [address], tel:[phone] [place] decreased vision (chief complaint)a chiness (chief complaint) Exdtve age-rel mclr degn, right eye, with actv chrdl neovas Floresita Barnard. [address] [place] [address], [facility], . tel:[phone] [facility] , [address] [facility], [place], [place], [facility], tel:[phone] [place] floaters (chief complaint)p ressure, pain (chief complaint) Vitreous degeneration, left eyePresbyopia Floresita Barnard. [address], [place], [place], [facility], [place]. tel:[phone] [facility] , [address] [place], [place] [address]ite [address] [place] [address], [facility], tel:[phone] [place] floaters (chief complaint) Vitreous degeneration, left eye Elijahwilman Barnard. [address] [place] [address], [facility], . tel:[phone] [facility] , [facility] [address] [place] [address], [facility], tel:[phone] [place] No Information Yevgeniy Valencia [facility], [address], [facility], . tel:[phone] [facility] , [address] [place] [address], [facility], tel:[phone] [place] Exudative age-related macular degeneration of lt eye w/ active choroidal neovascularization Yevgeniy Valencia [address] [facility], [address] [place] [address], [facility], [place]. tel:[phone] [facility] , [address] [place] [address], [facility], tel:[phone] [place] decreased vision (chief complaint) Exudative age-related macular degeneration of lt eye w/ active choroidal neovascularization Yevgeniy Valencia [address] [facility], [address] [place] [address], [facility], [place]. tel:[phone] [facility] , [address] [facility], [place], [address], [place] tel:[phone] [place] decreased vision (chief complaint) PresbyopiaAge-relate d nuclear cataract, bilateralOpen angle with borderline findings, low risk, bilateral Floresita Barnard. [address] [facility], [address], [place], [address], [place]. tel:[phone] Family History Family Member Type Diagnosis Age At Onset Mother Problem (finding) diabetes charlyi rush in first degree relative Payers Payer name Insurance type Covered libertarian ID Authoriza [place]ion(s) [place] [id number] Social History Type Description Quantity Date Captured [...] Referral Referred To: Kacie Ayala MD [address] [facility] [address] [place], [address] [phone] Ordered: Referrals: Kacie Ayala MD. Consult ordered [...] HEBERT. Patient seen emergently today. referred from [facility] with sudden and profound loss of vision [...] acute process. Patient is a resident at [facility] and here with legal guardian today. Explained [...]
--- NOTE | ~2025-07-23 | MM_ITS ---
EXAMINATION: DXA BONE DENSITY AXIAL HISTORY: Z78.0 - Asymptomatic menopausal state TECHNIQUE: [employer] Dual energy absorptiometry (DEXA) of the lumbar spine, total left hip, and femoral neck was performed. COMPARISON: There are no prior studies for comparison. FINDINGS: The bone mineral density of the lumbar spine is 1.139 g/cm2, corresponding to a T-score of -0.2, and a Z-score of 0.3. This is indicative of normal bone mineral density. The bone mineral density of the left total hip is 0.916 g/cm2, corresponding to a T-score of -0.7, and a Z-score of -0.2. This is indicative of normal bone mineral density. The bone mineral density of the left femoral neck is 0.856 g/cm2, corresponding to a T-score of -1.3, and a Z-score of -0.5. This is indicative of osteopenia. FRACTURE RISK: The FRAX index suggests a risk of major osteoporotic fracture of 12.5%, and of hip fracture 1.2%. MM/XR DEXA axial skeleton IMPRESSION: Based on bone mineral density, and according to World Health Organization (WHO) criteria, the diagnosis is consistent with osteopenia. Statistically, 68% of repeat scans fall within 1 SD (+/- 0.010 g/cm2 for AP spine L1-L4) and 1 SD (+/- 0.012 g/cm2 for femur total) FRAX is a trademark of the [employer]'s [place] for Metabolic Bone Disease, a World Health Organization (WHO) Collaborating Center. Electronically signed by: Ti Cowan MD 07/23/2025 11:09 AM EDT
--- OUTSIDE RECORDS SUMMARY | 2025-07-23 11:10 | XMS_ITS | Encounter Summary ---
Author Organization [facility] Address [address] [place] [address] Care Team Providers Care Shingle Trimmer Name Role Phone Rosa Castro MD Primary Care Provider [phone] Encounter Details Date Type Department Care Team (Late st Contact Info) Description 01/16/2025 Lab Requisition [facility] - Main Lab 299 [facility] [place] [address] Chai Carias MD [address] [place] [address] [address] [place] Unspecified external cause status Social History [...] status documented in this encounter Care Teams Shingle Trimmer Relationship Specialty Start Date End Date Rosa Castro MD [address] [place] [phone] PCP - General 03/14/25 documented as of this encounter
--- OUTSIDE RECORDS SUMMARY | 2025-07-23 11:10 | XMS_ITS | Encounter Summary ---
[facility] Organization [facility] Address [address] [place] [address] Care Team Providers Care Monotype Operator Name Role Phone Rosa Castro MD Primary Care Provider [phone] Encounter Details Date Type Department Care Team (Late st Contact Info) Description 03/08/2025 Lab Requisition [facility] - Main Lab 299 [facility] [place] [address] Chai Carias MD [address] [place] [address] [address] [place] Type 2 diabetes mellitus without complications (CMS/HCC [...] * Lavender tube (03/08/2025 7:00 AM EDT) [facility] Extra Tube Hold for add-ons. 03/08/2025 9:01 AM EDT [facility] Comment:Auto resulted. Blood Venous blood specimen / Unknown 03/08/2025 7:00 AM EDT 03/08/2025 7:57 AM EDT us Chai Carias MD LAB BLOOD ORDERABLES Final Resul t Performing Organization Address [facility]/ZIP Co de Phone Number [facility] [address] [place] [address], [place] [phone] * Hemoglobin A1c (03/08/2025 7:00 AM EDT) [facility] Hemoglobin A1C 5.8 <6.5 % LAB CHEMISTRY [...] Performing Organization Address City/[facility]/ZIP Co de Phone Number [facility] [address] [place] [address], [place] [phone] * (ABNORMAL) Complete blood count (03/08/2025 7:00 AM EDT) [facility] WBC 8.4 4.8 - 10.8 K/[facility] LAB HEMETOLOGY METHOD 03/08/2025 8:30 AM EDT [facility] RBC 4.10 3.80 - 4.80 M/[facility] LAB HEMETOLOGY METHOD 03/08/2025 8:30 AM [...] t [facility] [address] [place] [address], [place] [phone] * (ABNORMAL) Comprehensive metabolic panel (03/08/2025 7:00 AM EDT) Sodium 140 133 - 145 mmol/L LAB CHEMISTRY METHOD 03/08/2025 9:04 AM [facility] Potassium 4.2 3.5 - 5.5 mmol/L LAB CHEMISTRY METHOD 03/08/2025 9:04 AM [facility] Chloride 104 96 - 110 mmol/L LAB CHEMISTRY METHOD 03/08/2025 9:04 AM [facility] CO2 27 21 - 32 mmol/L LAB CHEMISTRY METHOD 03/08/2025 9:04 AM [facility] Anion Gap 9 3 - 11 LAB CHEMISTRY METHOD 03/08/2025 9:04 AM [facility] Glucose 84 70 - 100 mg/dL LAB CHEMISTRY METHOD 03/08/2025 9:04 AM [facility] BUN 18 5 - 25 mg/dL LAB CHEMISTRY METHOD 03/08/2025 9:04 AM [facility] Creatinine 0.76 0.50 - 1.10 mg/dL LAB CHEMISTRY METHOD 03/08/2025 9:04 AM [facility] eGFR 86 >=60 mL/min/1. 73m2 LAB CHEMISTRY METHOD 03/08/2025 9:04 AM [facility] Comment:Calculation based on the Chronic Kidney Disease Epidemiology Collaboration (CKD-EPI) equation refit without adjustment for race. BUN/Creatinine Ratio 23.7 LAB CHEMISTRY METHOD 03/08/2025 9:04 AM [facility] Calcium 9.0 8.5 - 10.5 mg/dL LAB CHEMISTRY METHOD 03/08/2025 9:04 AM [facility] AST (SGOT) 33 10 - 42 [...] g/dL LAB CHEMISTRY METHOD 03/08/2025 9:04 AM [facility] Total Bilirubin 0.4 0.0 - 1.4 mg/dL LAB CHEMISTRY METHOD 03/08/2025 9:04 AM [facility] Blood Venous blood specimen / Unknown 03/08/2025 7:00 AM EDT 03/08/2025 7:45 AM EDT us Chai Carias MD LAB BLOOD ORDERABLES Final Resul t [facility] [address] [place] [address], [place] [phone] documented in this encounter Visit Diagnoses Diagnosis Type 2 diabetes mellitus without complications (CMS/HCC V24, CMS/HCC V28) documented in this encounter Care Teams Monotype Operator Relationship Specialty Start Date End Date Rosa Castro MD [address] [place] [phone] PCP - General 03/14/25 documented as of this encounter
--- OUTSIDE RECORDS SUMMARY | 2025-07-23 11:10 | XMS_ITS | Encounter Summary ---
Author Organization [facility] Address [address] [place] [address] Care Team Providers Care Child Care Cook Name Role Phone Rosa Castro MD Primary Care Provider [phone] Encounter Details Date Type Department Care Team (Late st Contact Info) Description 06/03/2025 Lab Requisition [facility] - Main Lab 299 [facility] [place] [address] Chai Carias MD [address] [place] [address] [address] [place] Morbid (severe) obesity due to excess calories [...] V28) Type 2 diabetes mellitus without complications ([facility] V24, [facility] V28) COMPREHENSIVE METABOLIC PANEL Routine 06/03/2025 7:04 AM EDT Morbid (severe) obesity due to excess calories ([facility] V24, [facility] V28) Type 2 diabetes mellitus without complications ([facility] V24, [facility] V28) documented in this encounter Results * Lavender tube (06/03/2025 7:04 AM EDT) [facility] Extra Tube Hold for add-ons. 06/03/2025 9:01 AM EDT [facility] Comment:Auto resulted. Blood Venous blood specimen / Unknown 06/03/2025 7:04 AM EDT 06/03/2025 7:41 AM EDT us Chai Carias MD LAB BLOOD ORDERABLES Final Resul t Performing Organization Address [facility]/ZIP Co de Phone Number [facility] [address] [place] [address], [place] [phone] * Hemoglobin A1c (06/03/2025 7:04 AM EDT) [facility] Hemoglobin A1C 5.6 <6.5 % LAB CHEMISTRY METHOD 06/03/2025 11:23 AM EDT [facility] Mean Bld Glu Estim. 114 mg/dL LAB CHEMISTRY METHOD 06/03/2025 11:23 AM EDT [facility] Blood Venous blood specimen / Unknown 06/03/2025 7:04 AM EDT 06/03/2025 7:41 AM EDT us Chai Carias MD LAB BLOOD ORDERABLES Final Resul t Performing Organization Address City/[facility]/ZIP Co de Phone Number [facility] [address] [place] [address], [place] [phone] * (ABNORMAL) Comprehensive metabolic panel (06/03/2025 7:04 AM EDT) Sodium 138 133 - 145 mmol/L LAB CHEMISTRY METHOD 06/03/2025 8:19 AM [facility] Potassium 4.3 3.5 - 5.5 mmol/L LAB CHEMISTRY METHOD 06/03/2025 8:19 AM [facility] Chloride 102 96 - 110 mmol/L LAB CHEMISTRY METHOD 06/03/2025 8:19 AM [facility] CO2 27 21 - 32 mmol/L LAB CHEMISTRY METHOD 06/03/2025 8:19 AM [facility] Anion Gap 9 3 - 11 LAB CHEMISTRY METHOD 06/03/2025 8:19 AM [facility] Glucose 97 70 - 100 mg/dL LAB CHEMISTRY METHOD 06/03/2025 8:19 AM [facility] BUN 16 5 - 25 mg/dL LAB CHEMISTRY METHOD 06/03/2025 8:19 AM [facility] Creatinine 0.82 0.50 - 1.10 mg/dL LAB CHEMISTRY METHOD 06/03/2025 8:19 AM [facility] eGFR 79 >=60 mL/min/1. 73m2 LAB CHEMISTRY METHOD 06/03/2025 8:19 AM [facility] Comment:Calculation based on the Chronic Kidney Disease Epidemiology Collaboration (CKD-EPI) equation refit without adjustment for race. BUN/Creatinine Ratio 19.5 LAB CHEMISTRY METHOD 06/03/2025 8:19 AM [facility] Calcium 9.6 8.5 - 10.5 mg/dL LAB CHEMISTRY METHOD 06/03/2025 8:19 AM [facility] AST (SGOT) 21 10 - 42 unit/L LAB CHEMISTRY METHOD 06/03/2025 8:19 AM [facility] ALT (SGPT) 19 10 - 60 unit/L LAB CHEMISTRY METHOD 06/03/2025 8:19 AM EDT [facility] Alkaline Phosphatase 130(H) 42 - 121 unit/L LAB CHEMISTRY METHOD 06/03/2025 8:19 AM EDT [facility] Total Protein 7.0 6.0 - 8.0 g/dL LAB CHEMISTRY METHOD 06/03[facility]2025 [facility] Albumin 3.3 3.2 - 5.0 g/dL LAB CHEMISTRY METHOD 06/03/2025 8:19 AM EDT [facility] Total Bilirubin 0.3 0.0 - 1.4 mg/dL LAB CHEMISTRY METHOD 06/03/2025 8:19 AM [facility] Blood Venous blood specimen / Unknown 06/03/2025 7:04 AM EDT 06/03/2025 7:41 AM EDT us Chai Carias MD LAB BLOOD ORDERABLES Final Resul t [facility] [address] [place] [address], [place] [phone] * (ABNORMAL) Complete blood count (06/03/2025 7:04 AM EDT) WBC 8.4 4.8 - 10.8 K/mcL LAB HEMETOLOGY METHOD 06/03/2025 8:10 AM T [facility] RBC 3.70(L) 3.80 - 4.80 M/mcL LAB HEMETOLOGY METHOD 06/03/2025 8:10 AM [facility] Hemoglobin 9.6(L) 11.5 - 16.0 g/dL LAB HEMETOLOGY METHOD 06/03/2025 8:10 AM [facility] Hematocrit 31.9(L) 35.0 - 47.0 % LAB HEMETOLOGY METHOD 06/03/2025 8:10 AM EDT [facility] MCV 86.0 79.0 - 98.0 FL LAB HEMETOLOGY METHOD 06/03/2025 8:10 AM EDT [facility] MCH 25.9(L) 27.0 - 32.0 pcg LAB HEMETOLOGY METHOD 06/03/2025 8:10 AM EDT [facility] MCHC 30.1(L) 32.0 - 37.0 g/dL LAB HEMETOLOGY METHOD 06/03/2025 8:10 AM EDT [facility] RDW 17.9(H) 11.0 - 15.0 % LAB HEMETOLOGY METHOD 06/03/2025 8:10 AM EDT [facility] Platelets 206 130 - 400 K/mcL LAB HEMETOLOGY METHOD 06/03/2025 8:10 AM EDT [facility] MPV 10.4 7.0 - 11.0 FL LAB HEMETOLOGY METHOD 06/03/2025 8:10 AM EDT [facility] NRBC 0.0 <1.0 % LAB HEMETOLOGY METHOD 06/03/2025 8:10 AM EDT [facility] NRBC Absolute 0.00 <0.10 K/mcL LAB HEMETOLOGY METHOD 06/03/2025 8:10 AM T [facility] Blood Venous blood specimen / Unknown 06/03/2025 7:04 AM EDT 06/03/2025 7:41 AM EDT us Chai Carias MD LAB BLOOD ORDERABLES Final Resul t [facility] [address] [place] [address], documented in this encounter Visit Diagnoses Diagnosis Morbid (severe) obesity due to excess calories (CMS/HCC V24, CMS/HCC V28) Type 2 diabetes mellitus without complications (CMS/HCC V24, CMS/HCC V28) documented in this encounter Care Teams Child Care Cook Relationship Specialty Start Date End Date Rosa Castro MD [address] [place] [phone] PCP - General 03/14/25 documented as of this encounter
--- OUTSIDE RECORDS SUMMARY | 2025-07-23 11:10 | XMS_ITS | Encounter Summary ---
[facility] Organization [facility] Address [address] [place] [address] Care Team Providers Care Electro Mechanical Assembler Name Role Phone Rosa Castro MD Primary Care Provider [phone] Encounter Details Date Type Department Care Team (Late st Contact Info) Description 01/10/2025 Lab Requisition [facility] Lab [address] [place] [address] Chai Carias MD [address] [place] [address] [address] [place] Dysuria Social History Tobacco Use Types Packs/Day [...] reflex microscopic (01/09/2025 7:00 PM EDT) Specific [place] Urine 1.021 1.003 - 1.030 LAB URINALYSIS - AUTOMATED METHOD 01/10/2025 8:20 AM EDT [facility] pH, Urine 5.5 5.0 - 8.0 pH LAB URINALYSIS - AUTOMATED METHOD [facility] Leukocytes, Urine Large(A) Negative LAB URINALYSIS - AUTOMATED METHOD 01/10/2025 8:20 AM [facility] Nitrite, Urine Positive(A) Negative LAB URINALYSIS - AUTOMATED METHOD 01/10/2025 8:20 AM [facility] Protein, Urine Trace <=Trace mg/dL LAB URINALYSIS - AUTOMATED METHOD 01/10/2025 8:20 AM [facility] Glucose, Urine Negative Negative mg/dL LAB URINALYSIS - AUTOMATED METHOD 01/10/2025 8:20 AM [facility] Ketones, Urine Negative Negative mg/dL LAB URINALYSIS - AUTOMATED METHOD 01/10/2025 8:20 AM [facility] Urobilinogen , Urine 1.0 0.2 - 1.0 mg/dL LAB URINALYSIS - AUTOMATED METHOD 01/10/2025 8:20 AM [facility] Bilirubin, Urine Negative Negative LAB URINALYSIS - AUTOMATED METHOD 01/10/2025 8:20 AM [facility] Blood, Urine Negative Negative LAB URINALYSIS - AUTOMATED METHOD 01/10/2025 8:20 AM [facility] RBC, Urine 1.0 0 - 4 /HPF LAB URINALYSIS - AUTOMATED METHOD 01/10/2025 8:20 AM [facility] WBC, Urine 90.1(H) 0 - 4 /HPF LAB URINALYSIS - AUTOMATED METHOD 01/10/2025 8:20 AM [facility] Squamous Epithelial, Urine 62(H) 0 - 60 /LPF LAB URINALYSIS - AUTOMATED METHOD 01/10/2025 8:20 AM [facility] Crystals, Urine LT CALCIUM OXALATE /LPF LAB URINALYSIS - AUTOMATED METHOD 01/10/2025 8:20 AM [facility] Bacteria, Urine Many(A) Negative /HPF LAB URINALYSIS - AUTOMATED METHOD 01/10/2025 8:20 AM EDT [facility] Hyaline Casts, Urine 1.2 0 - 3 /LPF LAB URINALYSIS - AUTOMATED METHOD 01/10/2025 8:20 AM EDT [facility] Urine Urine specimen obtained by clean catch procedure / Unknown 01/09/2025 7:00 PM EDT 01/10/2025 7:31 AM EDT us Chai Carias MD LAB URINE ORDERABLES Final Resul t Performing Organization Address City/[facility]/ZIP Co de Phone Number [facility] [address] [place] [address], [place] [phone] * Culture urine (01/09/2025 7:00 PM EDT) Culture, Urine >100,000 CFU/mL Mixed bacterial morphotypes present suggestive of possible contamination during collection. Suggest appropriate recollection if clinically indicated. 01/11/2025 10:19 AM EDT [facility] Urine Urine specimen obtained by clean catch procedure / Unknown 01/09/2025 7:00 PM EDT 01/10/2025 7:31 AM EDT us Chai Carias MD LAB MICROBIOLOGY - GENERAL ORDER [place] Final Result Performing Organization Address City/[facility]/ZIP Co de Phone Number [facility] [address] [place] [address], [place] [phone] documented in this encounter Visit Diagnoses Diagnosis Dysuria documented in this encounter Care Teams Electro Mechanical Assembler Relationship Specialty Start Date End Date Rosa Castro MD [address] [place] [phone] PCP - General 03/14/25 documented as of this encounter
--- OUTSIDE RECORDS SUMMARY | 2025-07-23 11:10 | XMS_ITS | Encounter Summary ---
Author Organization [facility] Address [address] [place] [address] Care Team Providers Care Sheetmetal Trades Worker Name Role Phone Rosa Castro MD Primary Care Provider [phone] Encounter Details Date Type Department Care Team (Late st Contact Info) Description 11/27/2024 Lab Requisition [facility] [address] [place] [address] Chai Carias MD [address] [place] [address] Dr [address] [place] Type 2 diabetes mellitus with unspecified complications [...] AM EST) WBC 8.6 4.8 - 10.8 K/[facility] HEMETOLOGY METHOD 11/27/2024 8:11 AM EST [facility] RBC 3.70(L) 3.80 - 4.80 M/mcL [...] MD LAB BLOOD ORDERABLES Final Resul t [facility] [address] [place] [address], [place] [phone] * Hemoglobin A1c (11/27/2024 7:01 AM EST) Pathologist [facility] Hemoglobin A1C 5.9 <6.5 % LAB CHEMISTRY METHOD 11/27/2024 2:05 PM EST [facility] Mean Bld Glu Estim. 123 mg/dL LAB CHEMISTRY METHOD 11/27/2024 2:[address] [facility] Blood Venous blood specimen / Unknown 11/27/2024 7:01 AM EST 11/27/2024 8:05 AM EST us Chai Carias MD LAB BLOOD ORDERABLES Final Resul t Performing Organization Address [facility]/ZIP Co de Phone Number [facility] [address] [place] [address], [place] [phone] * (ABNORMAL) Comprehensive metabolic panel (11/27/2024 7:01 AM EST) [facility] Sodium 138 133 - 145 mmol/L LAB [...] [facility] Comment:Calculation based on the Chronic [...] LAB BLOOD ORDERABLES Final Resul t [facility] [address] [place] [address], documented in this encounter Visit Diagnoses Diagnosis Type 2 diabetes mellitus with unspecified complications (CMS/HCC V24, CMS/HCC V28) documented in this encounter Care Teams Sheetmetal Trades Worker Relationship Specialty Start Date End Date Rosa Castro MD [address] [place] [phone] PCP - General 03/14/25 documented as of this encounter
--- OUTSIDE RECORDS SUMMARY | 2025-07-23 11:10 | XMS_ITS | Encounter Summary ---
Author Organization [facility] Address [address] [place] [address] Care Team Providers Care Divemaster Name Role Phone Rosa Castro MD Primary Care Provider [phone] Encounter Details Date Type Department Care Team (Late st Contact Info) Description 12/24/2024 Lab Requisition [facility] Lab [address] [place] [address] Chai Carias MD [address] [place] [address] Dr [address] [place] Other hyperlipidemia; Other specified hypothyroidism; Vitamin [...] LAB CHEMISTRY METHOD 12/24/2024 8:37 AM EST [facility] Blood Venous blood specimen / Unknown 12/24/2024 6:50 AM EST 12/24/2024 7:47 AM EST us Chai Carias MD LAB BLOOD ORDERABLES Final Resul t Performing Organization Address [facility]/ZIP Co de Phone Number [facility] [address] [place] [address], [place] [phone] * Thyroid stimulating hormone (12/24/2024 6:50 AM EST) TSH 2.16 0.40 - 4.00 mcIU/mL LAB CHEMISTRY METHOD 12/24/2024 8:37 AM EST [facility] Blood Venous blood specimen / Unknown 12/24/2024 6:50 AM EST 12/24/2024 7:47 AM EST us Chai Carias MD LAB BLOOD ORDERABLES Final Resul t Performing Organization Address City/[facility]/ZIP Co de Phone Number [facility] [address] [place] [address], [place] [phone] * Lipid panel with reflex to direct LDL (12/24/2024 6:50 AM EST) Cholesterol 139 0 - 200 mg/dL LAB CHEMISTRY METHOD 12/24/2024 8:27 AM [facility] Triglycerides 130 0 - 150 mg/dL LAB CHEMISTRY METHOD 12/24/2024 8:27 AM [facility] HDL 50 >=40 mg/dL LAB CHEMISTRY METHOD 12/24/2024 8:27 AM [facility] LDL Calculated 63 0 - 100 mg/dL LAB CHEMISTRY METHOD 12/24/2024 8:27 AM [facility] VLDL Cholesterol Josiah 26 mg/dL LAB CHEMISTRY METHOD 12/24/2024 8:27 AM EST [facility] Non HDL Chol. (LDL+VLDL) 89 <145 mg/dL LAB CHEMISTRY METHOD 12/24/2024 8:27 AM EST [facility] Chol/HDL Ratio 2.8 0.0 - 4.4 LAB CHEMISTRY METHOD 12/24/2024 8:27 AM EST [facility] Blood Venous blood specimen / Unknown 12/24/2024 6:50 AM EST 12/24/2024 7:47 AM EST us Chai Carias MD LAB BLOOD ORDERABLES Final Resul t [facility] [address] [place] [address], documented in this encounter Visit Diagnoses Diagnosis Other hyperlipidemia Other specified hypothyroidism Vitamin D deficiency, unspecified documented in this encounter Care Teams Divemaster Relationship Specialty Start Date End Date Rosa Castro MD [address] [place] [phone] PCP - General 03/14/25 documented as of this encounter
--- OUTSIDE RECORDS SUMMARY | 2025-07-23 11:10 | XMS_ITS | Encounter Summary ---
Author Organization [facility] Address [address] [place] [address] Care Team Providers Care Outpatient Facility Physical Therapist Name Role Phone Rosa Castro MD Primary Care Provider [phone] Encounter Details Date Type Department Care Team (Late st Contact Info) Description 07/01/2025 Lab Requisition [facility] - Main Lab [address] [facility] [place] [address] Chai Carias MD [address] [place] [address] Dr [address] [place] Morbid (severe) obesity due to excess [...] LAB CHEMISTRY METHOD 07/01/2025 9:47 AM EDT [facility] Blood Venous blood specimen / Unknown 07/01/2025 6:50 AM EDT 07/01/2025 8:18 AM EDT us Chai Carias MD LAB BLOOD ORDERABLES Final Resul t Performing Organization Address [facility] Co de Phone Number [facility] [address] [place] [address], [place] [phone] * Thyroid stimulating hormone (07/01/2025 6:50 AM EDT) [facility] TSH 1.89 0.40 - 4.00 mcIU/mL LAB CHEMISTRY METHOD 07/01/2025 9:47 AM EDT [facility] Blood Venous blood specimen / Unknown 07/01/2025 6:50 AM EDT 07/01/2025 8:18 AM EDT us Chai Carias MD LAB BLOOD ORDERABLES Final Resul t Performing Organization Address [facility] de Phone Number [facility] [address] [place] [address], [place] [phone] * Lipid panel with reflex to direct LDL (07/01/2025 6:50 AM EDT) [facility] Cholesterol 118 0 - 200 mg/dL LAB CHEMISTRY METHOD 07/01/2025 8:51 AM EDT [facility] Triglycerides 131 0 - 150 mg/dL LAB CHEMISTRY METHOD 07/01/2025 8:51 AM EDT [facility] HDL 56 >=40 mg/dL LAB CHEMISTRY METHOD 07/01/2025 8:51 AM EDT [facility] LDL Calculated 36 0 - 100 mg/dL LAB CHEMISTRY METHOD 07/01/2025 8:51 AM EDT [facility] Comment:Estimated LDL Calcul ated using equation: Total cholesterol - HDL cholesterol - (Triglycerides/5) VLDL Cholesterol Josiah 26.2 mg/dL LAB CHEMISTRY METHOD 07/01/2025 8:51 AM EDT [facility] Non HDL Chol. (LDL+VLDL) 62 <145 mg/dL LAB CHEMISTRY METHOD 07/01/2025 8:51 AM EDT [facility] Chol/HDL Ratio 2.1 0.0 - 4.4 LAB CHEMISTRY METHOD 07/01/2025 8:51 AM EDT [facility] Blood Venous blood specimen / Unknown 07/01/2025 6:50 AM EDT 07/01/2025 8:18 AM EDT us Chai Carias MD LAB BLOOD ORDERABLES Final Resul t [facility] [address] [place] [address], documented in this encounter Visit Diagnoses Diagnosis Morbid (severe) obesity due to excess calories (CMS/HCC V24, CMS/HCC V28) Other hyperlipidemia documented in this encounter Care Teams Outpatient Facility Physical Therapist Relationship Specialty Start Date End Date Rosa Castro MD [address] [place] [phone] PCP - General 03/14/25 documented as of this encounter
--- OUTSIDE RECORDS SUMMARY | 2025-07-23 11:10 | XMS_ITS | Encounter Summary ---
Author Organization [facility] Address [address] [place] [address] Care Team Providers Care Human Services Instructor Name Role Phone Rosa Castro MD Primary Care Provider [phone] Encounter Details Date Type Department Care Team (Late st Contact Info) Description 01/18/[address] [facility] Lab [address] [place] [address] Chai Carias MD [address] [place] [address] [address] [place] Altered mental status, unspecified Social History Tobacco [...] reflex microscopic (01/18/2025 6:00 AM EDT) Specific [place] Urine 1.015 1.003 - 1.030 LAB URINALYSIS - AUTOMATED METHOD 01/18/2025 7:22 AM EDT [facility] pH, Urine 7.0 5.0 - 8.0 pH LAB URINALYSIS - AUTOMATED METHOD 01/18/2025 7:22 AM [facility] Leukocytes, Urine Moderate(A) Negative LAB URINALYSIS - AUTOMATED METHOD 01/18/2025 7:22 AM [facility] Nitrite, Urine Positive(A) Negative LAB URINALYSIS - AUTOMATED METHOD 01/18/2025 7:22 AM [facility] Protein, Urine Negative <=Trace mg/dL LAB URINALYSIS - AUTOMATED METHOD 01/18/2025 7:22 AM [facility] Glucose, Urine Negative Negative mg/dL LAB URINALYSIS - AUTOMATED METHOD 01/18/2025 7:22 AM [facility] Ketones, Urine Negative Negative mg/dL LAB URINALYSIS - AUTOMATED METHOD 01/18/2025 7:22 AM [facility] Urobilinogen , Urine 1.0 0.2 - 1.0 mg/dL LAB URINALYSIS - AUTOMATED METHOD 01/18/2025 7:22 AM [facility] Bilirubin, Urine Negative Negative LAB URINALYSIS - AUTOMATED METHOD 01/18/2025 7:22 AM [facility] Blood, Urine Negative Negative LAB URINALYSIS - AUTOMATED METHOD 01/18/2025 7:22 AM [facility] RBC, Urine 0.8 0 - 4 /HPF LAB URINALYSIS - AUTOMATED METHOD 01/18/2025 7:22 AM [facility] WBC, Urine 34.5(H) 0 - 4 /HPF LAB URINALYSIS - AUTOMATED METHOD 01/18/2025 7:22 AM [facility] Squamous Epithelial, Urine 1 0 - 60 /LPF LAB URINALYSIS - AUTOMATED METHOD 01/18/2025 7:22 AM [facility] Bacteria, Urine Many(A) Negative /HPF LAB URINALYSIS - AUTOMATED METHOD 01/18/2025 7:22 AM [facility] Hyaline Casts, Urine 0.8 0 - 3 /LPF LAB URINALYSIS - AUTOMATED METHOD 01/18/2025 7:22 AM EDT [facility] Urine Urine specimen from urinary conduit / Unknown 01/18/2025 6:00 AM EDT 01/18/2025 7:05 AM EDT us Chai Carias MD LAB URINE ORDERABLES Final Resul t [facility] LAB [address] [place] [address], [place] [phone] * (ABNORMAL) Culture urine (01/18/2025 6:00 AM EDT) Culture, Urine >100,000 CFU/mL Escherichia coli(A) NADER 01/20/2025 11:14 AM EDT [facility] Comment: This is an edited result. Previous organism was Gram negative bacilli on 01/19/2025 at 0846 EDT. Culture, Urine 50,000-100,000 CFU/mL Escherichia coli(A) NADER 01/20/2025 11:14 AM EDT [facility] Comment: The organism value for [...] MICROBIOLOGY - GENERAL ORDER CHANTELLE Final Result [facility] ([facility] H[facility] LAB [address] [place] [address], documented in this encounter Visit Diagnoses Diagnosis Altered mental status, unspecified documented in this encounter Care Teams Human Services Instructor Relationship Specialty Start Date End Date Rosa Castro MD [address] [place] [phone] PCP - General 03/14/25 documented as of this encounter
--- OUTSIDE RECORDS SUMMARY | 2025-07-23 11:10 | XMS_ITS | Encounter Summary ---
Author Organization [facility] Address [address] [place] [address] Care Team Providers Care Waste Recycler Name Role Phone Rosa Castro MD Primary Care Provider [phone] Encounter Details Date Type Department Care Team (Late st Contact Info) Description 01/04/2025 Lab Requisition [facility] Lab [address] [facility] [employer] [place] [address] Chai Carias MD [address] [place] [address] Dr [address] [place], [place] Personal history of pulmonary embolism Social [...] LAB COAGULATION METHOD 01/04/2025 6:23 PM EDT [facility] Blood Venous blood specimen / Unknown 01/04/2025 5:15 PM EDT 01/04/2025 6:09 PM EDT Narrative [facility] - 01/04/2025 6:23 PM EDT D-Dimer <230 ng/mL (D-Dimer units) is the threshold for exclusion of DVT/PE. D-Dimer may be elevated in: Critically ill, severely infected, trauma patients, DIC, acute CVA, acute RI, unstable angina, AF, old age, , and smoking. D-Dimer may be decreased with: Initiation of heparin therapy and oral anticoagulants. Chai Carias MD LAB BLOOD ORDERABLES Final Resul t [facility] ([facility]) [facility] LAB [address] [place] [address], documented in this encounter Visit Diagnoses Diagnosis Personal history of pulmonary embolism documented in this encounter Care Teams Waste Recycler Relationship Specialty Start Date End Date Rosa Castro MD [address] [place] [phone] PCP - General 03/14/25 documented as of this encounter
--- OUTSIDE RECORDS SUMMARY | 2025-07-23 11:10 | XMS_ITS | Encounter Summary ---
Author Organization [facility] Address [address] [place] [address] Care Team Providers Care Meat Trimmer Name Role Phone Rosa Castro MD Primary Care Provider [phone] Encounter Details Date Type Department Care Team (Late st Contact Info) Description 10/30/2024 Lab Requisition [facility] Lab [address] [place] [address] Chai Carias MD [address] [place] [address] [address] [place] Mixed incontinence Social History Tobacco Use [...] reflex microscopic (10/30/2024 12:45 PM EST) Specific [place] Urine 1.012 1.003 - 1.030 LAB URINALYSIS - AUTOMATED METHOD 10/30/2024 5:14 PM EST [facility] pH, Urine 6.0 5.0 - 8.0 pH LAB URINALYSIS - AUTOMATED METHOD 10/30/2024 5:14 PM EST [facility] Leukocytes, Urine Moderate(A) Negative LAB [...] - AUTOMATED METHOD 10/30/2024 5:14 PM EST [facility] Urine Urine specimen obtained by clean catch procedure / Unknown Non-blood Collection / Unknown 10/30/2024 12:45 PM EST 10/30/2024 2:55 PM EST us Chai Carias MD LAB URINE ORDERABLES Final Resul t [facility] [address] [place] [address], * (ABNORMAL) Culture urine (10/30/2024 12:45 PM EST) Culture, Urine >100,000 CFU/mL Escherichia coli(A) NADER 11/01/2024 11:05 AM EST [facility] Urine Urine specimen obtained by clean catch procedure / Unknown Non-blood Collection / Unknown 10/30/2024 12:45 PM EST 10/30/2024 3:14 PM EST Narrative [facility] - 11/01/2024 11:05 AM EST [...] MICROBIOLOGY - GENERAL ORDER CHANTELLE Final Result [facility] LAB [address] [place] [address], documented in this encounter Visit Diagnoses Diagnosis Mixed incontinence Mixed incontinence urge and stress (male)(female) documented in this encounter Care Teams Meat Trimmer Relationship Specialty Start Date End Date Rosa Castro MD [address] [place] [phone] PCP - General 03/14/25 documented as of this encounter
--- OUTSIDE RECORDS SUMMARY | 2025-07-23 11:11 | XMS_ITS | Clinical Summary ---
Author Organization 299 [facility] Address [address] [place] [address] Phone Care Team Providers Care Cigar Making Supervisor Name Role Phone Rosa Castro MD Primary Care Provider [phone] Encounters Date Type Department Care Team Description 07/01/2025 Lab Requisition [facility] Lab [address] [place] [address] Chai Carias MD Morbid (severe) obesity due to excess calories (CMS/HCC V24, CMS/HCC V28); Other hyperlipidemia 06/03/2025 Lab Requisition [facility] Lab [address] [place] [address] Chai Carias MD Morbid (severe) [...] mg/dL LAB CHEMISTRY METHOD 07/01/2025 8:51 AM [facility] Comment:Estimated LDL Calcul ated using [...] ORDERABLES Final Resul t Performing Organization Address City/[facility]/ZIP Co de Phone Number [facility] [address] [place] [address], * Vitamin D 25 hydroxy (07/01/2025 6:50 AM EDT) Vit D, 25-Hydroxy 57.2 30.0 - 80.0 ng/mL LAB CHEMISTRY METHOD 07/01/2025 9:47 AM EDT [facility] Blood Venous blood specimen / Unknown 07/01/2025 6:50 AM EDT 07/01/2025 8:18 AM EDT us Chai Carias MD LAB BLOOD ORDERABLES Final Resul t [facility] [address] [place] [address], [place] [phone] * Thyroid stimulating hormone (07/01/2025 6:50 AM EDT) TSH 1.89 0.40 - 4.00 mcIU/mL LAB CHEMISTRY METHOD 07/01/2025 9:47 AM EDT [facility] Blood Venous blood specimen / Unknown 07/01/2025 6:50 AM EDT 07/01/2025 8:18 AM EDT us Chai Carias MD LAB BLOOD ORDERABLES Final Resul t Performing Organization Address [facility]/ZIP Co de Phone Number [facility] [address] [place] [address], [place] [phone] * Lavender tube (06/03/2025 7:04 AM EDT) Pathologist [facility] Extra Tube Hold for add-ons. 06/03/2025 9:01 AM EDT [facility] Comment:Auto resulted. Blood Venous blood specimen / Unknown 06/03/2025 7:04 AM EDT 06/03/2025 7:41 AM EDT us Chai Carias MD LAB BLOOD ORDERABLES Final Resul t Performing Organization Address [facility] de Phone Number [facility] [address] [place] [address], [place] [phone] * (ABNORMAL) Complete blood count (06/03/2025 7:04 AM EDT) [facility] WBC 8.4 4.8 - 10.8 K/[facility] LAB HEMETOLOGY METHOD 06/03/2025 8:10 AM EDT [facility] RBC 3.70(L) 3.80 - 4.80 M/[facility] LAB HEMETOLOGY METHOD 06/03/2025 8:10 AM EDT [facility] Hemoglobin 9.6(L) 11.5 - 16.0 g/dL LAB HEMETOLOGY METHOD 06/03/2025 8:10 AM EDT [facility] Hematocrit 31.9(L) 35.0 - 47.0 % LAB HEMETOLOGY METHOD 06/03/2025 8:10 AM EDT [facility] MCV 86.0 79.0 - 98.0 FL LAB HEMETOLOGY METHOD 06/03/2025 8:10 AM EDT [facility] MCH 25.9(L) 27.0 - 32.0 pcg LAB HEMETOLOGY METHOD 06/03/2025 8:10 AM EDT [facility] MCHC 30.1(L) 32.0 - 37.0 g/dL LAB HEMETOLOGY METHOD 06/03/2025 8:10 AM EDT [facility] RDW 17.9(H) 11.0 - 15.0 % LAB HEMETOLOGY METHOD 06/03/2025 8:10 AM EDT [facility] Platelets 206 130 - 400 K/mcL LAB HEMETOLOGY METHOD 06/03/2025 8:10 AM EDT [facility] MPV 10.4 7.0 - 11.0 FL LAB HEMETOLOGY METHOD 06/03/2025 8:10 AM EDT [facility] NRBC 0.0 <1.0 % LAB HEMETOLOGY METHOD 06/03/2025 8:10 AM EDT [facility] NRBC Absolute 0.00 <0.10 K/mcL LAB HEMETOLOGY METHOD 06/03/2025 8:10 AM EDT [facility] Blood Venous blood specimen / Unknown 06/03/2025 7:04 AM EDT 06/03/2025 7:41 AM EDT us Chai Carias MD LAB BLOOD ORDERABLES Final Resul t [facility] [address] [place] [address], * Hemoglobin A1c (06/03/2025 7:04 AM EDT) Hemoglobin A1C 5.6 <6.5 % LAB CHEMISTRY METHOD 06/03/2025 11:23 AM [facility] Mean Bld Glu Estim. 114 mg/dL LAB CHEMISTRY METHOD 06/03/2025 11:23 AM [facility] Blood Venous blood specimen / Unknown 06/03/2025 7:04 AM EDT 06/03/2025 7:41 AM EDT us Chai Carias MD LAB BLOOD ORDERABLES Final Resul t [facility] [address] [place] [address], [place] [phone] * (ABNORMAL) Comprehensive metabolic panel (06/03/2025 7:04 AM EDT) Sodium 138 133 - 145 mmol/L LAB CHEMISTRY METHOD 06/03/2025 8:19 AM [facility] Potassium 4.3 3.5 - 5.5 mmol/L LAB CHEMISTRY METHOD 06/03/2025 8:19 AM [facility] Chloride 102 96 - 110 mmol/L LAB CHEMISTRY METHOD 06/03/2025 8:19 AM [facility] CO2 27 21 - 32 mmol/L LAB CHEMISTRY METHOD 06/03/2025 8:19 AM [facility] Anion Gap 9 3 - 11 LAB CHEMISTRY METHOD 06/03/2025 8:19 AM [facility] Glucose 97 70 - 100 mg/dL LAB CHEMISTRY METHOD 06/03/2025 8:19 AM [facility] BUN 16 5 - 25 mg/dL LAB CHEMISTRY METHOD 06/03/2025 8:19 AM [facility] Creatinine 0.82 0.50 - 1.10 mg/dL LAB CHEMISTRY METHOD 06/03/2025 8:19 AM [facility] eGFR 79 >=60 mL/min/1. 73m2 LAB CHEMISTRY METHOD 06/03/2025 8:19 AM [facility] Comment:Calculation based on the Chronic Kidney Disease Epidemiology Collaboration (CKD-EPI) equation refit without adjustment for race. BUN/Creatinine Ratio 19.5 LAB CHEMISTRY METHOD 06/03/2025 8:19 AM [facility] Calcium 9.6 8.5 - 10.5 mg/dL LAB CHEMISTRY METHOD 06/03/2025 8:19 AM [facility] AST (SGOT) 21 10 - 42 unit/L LAB CHEMISTRY METHOD 06/03/2025 8:19 AM [facility] ALT (SGPT) 19 10 - 60 unit/L LAB CHEMISTRY METHOD 06/03/2025 8:19 AM [facility] Alkaline Phosphatase 130(H) 42 - 121 unit/L LAB CHEMISTRY METHOD 06/03/2025 8:19 AM [facility] Total Protein 7.0 6.0 - 8.0 g/dL LAB CHEMISTRY METHOD 06/03/2025 8:19 AM [facility] Albumin 3.3 3.2 - 5.0 g/dL LAB CHEMISTRY METHOD 06/03/2025 8:19 AM [facility] Total Bilirubin 0.3 0.0 - 1.4 mg/dL LAB CHEMISTRY METHOD 06/03/2025 8:19 AM [facility] Blood Venous blood specimen / Unknown 06/03/2025 7:04 AM EDT 06/03/2025 7:41 AM EDT us Chai Carias MD LAB BLOOD ORDERABLES Final Resul t [facility] [address] [place] [address], from Last 3 [place] [phone] MEDICARE [facility] MEDICARE MEDICAID - [place] Care Teams Cigar Making Supervisor Relationship Specialty Start Date End Date Rosa Castro MD [address] [place] [phone] PCP - General 03/14/25
== END 2025-07-23 10:07 | disposition home or self-care (01) ==
LOC: HO.MAMMO 10:06
PROVIDERS: Visit Provider Obstetrics & Gynecology
DX: Z13.820 Encounter for screening for osteoporosis (principal); Z78.0 Asymptomatic menopausal state
CPT/HCPCS: 77080

== ENCOUNTER → 2025-07-23 10:30 | Outpatient (BNV) | payer MEDICARE, SELFPAY | PROVIDERS: Visit Provider Radiology Diagnostic Radiology | DX: E28.39 Other primary ovarian failure (principal) | CPT/HCPCS: 77080 ==

== ENCOUNTER 2025-10-16 11:39 | Outpatient (REF) | payer MEDICARE, SELFPAY ==
--- NOTE | ~2025-10-16 | US_ITS ---
EXAMINATION: US PELVIS TRANSABDOMINAL AND TRANSVAGINAL HISTORY: R10.2 - Pelvic and perineal pain COMPARISON: There are no prior studies available for comparison. TECHNIQUE: Transabdominal and endovaginal real-time 2D roberto-scale ultrasound was performed. FINDINGS: The examination is limited by patient body habitus. Uterus: The uterus is normal in size, measuring approximately 6.0 x 2.7 x 4.1 cm. Myometrium demonstrates echotexture. There are calcifications in the myometrium which could be due to fibroids. No discrete fibroid is identified. Endometrium: The endometrial stripe measures 2 mm in thickness. Right ovary: The right ovary is not visualized. Left ovary: The left ovary is not visualized. Pelvic fluid: none. US/US pelvic and transvaginal IMPRESSION: Limited examination due to patient body habitus. No definite fibroids are identified. The ovaries are not identified. Electronically signed by: Ti Cowan MD 10/16/2025 12:51 PM [facility]
--- OUTSIDE RECORDS SUMMARY | 2025-10-16 11:43 | XMS_ITS | Encounter Summary ---
Author Organization Allie [facility] Address [address] [place] [address] Care Team Providers Care Back Tender Cloth Printing Name Role Phone Rosa Castro MD Primary Care Provider [phone] Encounter Details Date Type Department Care Team (Late st Contact Info) Description 06/03/2025 Lab Requisition [facility] Lab [address] [facility] [place] [address] Chai Carias MD [address] [place] [address] [address] [place] Morbid (severe) obesity due to excess calories [...] V28) Type 2 diabetes mellitus without complications ([facility] V24, [facility] V28) COMPREHENSIVE METABOLIC PANEL Routine 06/03/2025 7:04 AM EDT Morbid (severe) obesity due to excess calories ([facility] V24, [facility] V28) Type 2 diabetes mellitus without complications ([facility] V24, [facility] V28) documented in this encounter Results * Lavender tube (06/03/2025 7:04 AM EDT) [facility] Extra Tube Hold for add-ons. 06/03/2025 9:01 AM EDT [facility] Comment:Auto resulted. Blood Venous blood specimen / Unknown 06/03/2025 7:04 AM EDT 06/03/2025 7:41 AM EDT us Chai Carias MD LAB BLOOD ORDERABLES Final Resul t Performing Organization Address [facility]/ZIP Co de Phone Number [facility] [address] [place] [address], [place] [phone] * Hemoglobin A1c (06/03/2025 7:04 AM EDT) [facility] Hemoglobin A1C 5.6 <6.5 % LAB CHEMISTRY METHOD 06/03/2025 11:23 AM EDT [facility] Mean Bld Glu Estim. 114 mg/dL LAB CHEMISTRY METHOD 06/03/2025 11:23 AM EDT [facility] Blood Venous blood specimen / Unknown 06/03/2025 7:04 AM EDT 06/03/2025 7:41 AM EDT us Chai Carias MD LAB BLOOD ORDERABLES Final Resul t Performing Organization Address City/[facility]/ZIP Co de Phone Number [facility] [address] [place] [address], [place] [phone] * (ABNORMAL) Comprehensive metabolic panel (06/03/2025 7:04 [...] LAB CHEMISTRY METHOD 06/03/2025 8:19 AM EDT [facility] Alkaline Phosphatase 130(H) 42 - 121 unit/L LAB CHEMISTRY METHOD 06/03/2025 8:19 AM EDT [facility] Total Protein 7.0 6.0 - 8.0 g/dL LAB CHEMISTRY METHOD [facility] Albumin 3.3 3.2 - 5.0 g/dL LAB CHEMISTRY METHOD 06/03/2025 8:19 AM EDT [facility] Total Bilirubin 0.3 0.0 - 1.4 mg/dL LAB CHEMISTRY METHOD 06/03/2025 8:19 AM [facility] Blood Venous blood specimen / Unknown 06/03/2025 7:04 AM EDT 06/03/2025 7:41 AM EDT us Chai Carias MD LAB BLOOD ORDERABLES Final Resul t [facility] [address] [place] [address], [place] [phone] * (ABNORMAL) Complete blood count (06/03/2025 7:04 AM EDT) WBC 8.4 4.8 - 10.8 K/mcL LAB HEMETOLOGY METHOD 06/03/2025 8:10 AM T [facility] RBC 3.70(L) 3.80 - 4.80 M/mcL LAB HEMETOLOGY METHOD 06/03/2025 8:10 AM [facility] Hemoglobin 9.6(L) 11.5 - 16.0 g/dL LAB HEMETOLOGY METHOD 06/03/2025 8:10 AM [facility] Hematocrit 31.9(L) 35.0 - 47.0 % LAB HEMETOLOGY METHOD 06/03/2025 8:10 AM EDT [facility] MCV 86.0 79.0 - 98.0 FL LAB HEMETOLOGY METHOD 06/03/2025 8:10 AM EDT [facility] MCH 25.9(L) 27.0 - 32.0 pcg LAB HEMETOLOGY METHOD 06/03/2025 8:10 AM EDT [facility] MCHC 30.1(L) 32.0 - 37.0 g/dL LAB HEMETOLOGY METHOD 06/03/2025 8:10 AM EDT [facility] RDW 17.9(H) 11.0 - 15.0 % LAB HEMETOLOGY METHOD 06/03/2025 8:10 AM EDT [facility] Platelets 206 130 - 400 K/mcL LAB HEMETOLOGY METHOD 06/03/2025 8:10 AM EDT [facility] MPV 10.4 7.0 - 11.0 FL LAB HEMETOLOGY METHOD 06/03/2025 8:10 AM EDT [facility] NRBC 0.0 <1.0 % LAB HEMETOLOGY METHOD 06/03/2025 8:10 AM EDT [facility] NRBC Absolute 0.00 <0.10 K/mcL LAB HEMETOLOGY METHOD 06/03/2025 8:10 AM T [facility] Blood Venous blood specimen / Unknown 06/03/2025 7:04 AM EDT 06/03/2025 7:41 AM EDT us Chai Carias MD LAB BLOOD ORDERABLES Final Resul t [facility] [address] [place] [address], documented in this encounter Visit Diagnoses Diagnosis Morbid (severe) obesity due to excess calories (CMS/HCC V24, CMS/HCC V28) Type 2 diabetes mellitus without complications (CMS/HCC V24, CMS/HCC V28) documented in this encounter Additional Health Concerns Infection Onset Date Last Indicated Resolved Time Respiratory Rule-Out 07/29/2025 07/29/2025 025 10:21 AM EDT COVID-19 07/29/2025 07/29/2025 08/28/2025 7:04 PM EST documented as of this encounter Care Teams Back Tender Cloth Printing Relationship Specialty Start Date End Date Rosa Castro MD [address] [place] [phone] PCP - General 03/14/25 documented as of this encounter
--- OUTSIDE RECORDS SUMMARY | 2025-10-16 11:44 | XMS_ITS | Encounter Summary ---
Author Organization [facility] Address [address] [place] [address] Care Team Providers Care Decal Maker Name Role Phone Rosa Castro MD Primary Care Provider [phone] Encounter Details Date Type Department Care Team (Late st Contact Info) Description 07/29/[address] [facility] [address] [place] [address] Chai Carias MD [address] [place] [address] [address] [place] Cough, unspecified; Nasal congestion; Shortness of breath Social History Tobacco Use Types Packs/Day Years [...] Procedure Name Priority Date/Time Associated Diagnosis Comments [id number], RSV, FLU A AND B QUALITATIVE RT-PCR, LOCAL REFERENCE LAB Routine 07/29/2025 9:43 AM EDT Cough, unspecified Nasal congestion Shortness of breath documented in this encounter Results * (ABNORMAL) [id number], RSV, Influenza A and B qualitative RT-PCR (07/29/2025 9:43 AM EDT) SARS COV-2 Detected(A ) Not Detected LAB MOLECULAR DIAGNOSTICS METHOD 07/30/2025 10:21 AM EDT [facility] Comment: Disclaimer: The manner in which this information is used to guide patient care is the responsibility of the healthcare provider. Testing was performed using the [employer] m SARS-CoV-2 test. This test has been authorized by FDA under an Emergency Use Authorization (EUA). This test is only authorized for the duration of time the declaration that circumstances exist justifying the authorization of the emergency use of in vitro diagnostic tests for detection of SARS-CoV-2 virus and/or diagnosis of COVID-19 infection under section 564(b)(1) of the Act, 21 U.S.C. 360bbb- 3(b)(1), unless the authorization is terminated or revoked sooner. Fact sheet for Healthcare Providers can be found at: https://www.fda.gov/media/640264/download Fact sheet for Patients can be found at: https://www.fda.gov/media/441351/download Influenza A PCR Not Detected Not Detected LAB MOLECULAR DIAGNOSTICS METHOD 07/30/2025 10:21 AM EDT [facility] Influenza B PCR Not Detected Not Detected LAB MOLECULAR DIAGNOSTICS METHOD 07/30/2025 10:21 AM EDT [facility] RSV PCR Not Detected Not Detected LAB MOLECULAR DIAGNOSTICS METHOD 07/30/2025 10:21 AM T [facility] Swab Nasopharyngeal structure / Unknown 07/29/2025 9:43 AM EDT 07/29/2025 12:26 PM EDT Chai Carias MD LAB MICROBIOLOGY - GENERAL ORDER CHANTELLE Final Result [facility] [address] [place] [address], documented in this encounter Visit Diagnoses Diagnosis Cough, unspecified Nasal congestion Other diseases of nasal cavity and sinuses Shortness of breath documented in this encounter Additional Health Concerns Infection Onset Date Last Indicated Resolved Time Respiratory Rule-Out 07/29/2025 07/29/2025 025 10:21 AM EDT COVID-19 07/29/2025 07/29/2025 08/28/2025 7:04 PM EST documented as of this encounter Care Teams Decal Maker Relationship Specialty Start Date End Date Rosa Castro MD [address] [place] [phone] PCP - General 03/14/25 documented as of this encounter
--- OUTSIDE RECORDS SUMMARY | 2025-10-16 11:44 | XMS_ITS | Encounter Summary ---
[facility] Address [address] [place] [address] Care Team Providers Care Cornice Maker Name Role Phone Rosa Castro MD Primary Care Provider [phone] Encounter Details Date Type Department Care Team (Late st Contact Info) Description 01/10/2025 Lab Requisition [facility] [address] [place] [address] Chai Carias MD [address] [place] [address] [address] [place] Dysuria Social History Tobacco Use Types Packs/Day [...] reflex microscopic (01/09/2025 7:00 PM EDT) Specific [place] Urine 1.021 1.003 - 1.030 LAB URINALYSIS - AUTOMATED METHOD 01/10/2025 8:20 AM EDT [facility] pH, Urine 5.5 5.0 - 8.0 pH LAB URINALYSIS - AUTOMATED METHOD [facility] Leukocytes, Urine Large(A) Negative LAB URINALYSIS - AUTOMATED METHOD 01/10/2025 8:20 AM [facility] Nitrite, Urine Positive(A) Negative LAB URINALYSIS - AUTOMATED METHOD 01/10/2025 8:20 AM [facility] Protein, Urine Trace <=Trace mg/dL LAB URINALYSIS - AUTOMATED METHOD 01/10/2025 8:20 AM [facility] Glucose, Urine Negative Negative mg/dL LAB URINALYSIS - AUTOMATED METHOD 01/10/2025 8:20 AM [facility] Ketones, Urine Negative Negative mg/dL LAB URINALYSIS - AUTOMATED METHOD 01/10/2025 8:20 AM [facility] Urobilinogen , Urine 1.0 0.2 - 1.0 mg/dL LAB URINALYSIS - AUTOMATED METHOD 01/10/2025 8:20 AM [facility] Bilirubin, Urine Negative Negative LAB URINALYSIS - AUTOMATED METHOD 01/10/2025 8:20 AM [facility] Blood, Urine Negative Negative LAB URINALYSIS - AUTOMATED METHOD 01/10/2025 8:20 AM [facility] RBC, Urine 1.0 0 - 4 /HPF LAB URINALYSIS - AUTOMATED METHOD 01/10/2025 8:20 AM [facility] WBC, Urine 90.1(H) 0 - 4 /HPF LAB URINALYSIS - AUTOMATED METHOD 01/10/2025 8:20 AM [facility] Squamous Epithelial, Urine 62(H) 0 - 60 /LPF LAB URINALYSIS - AUTOMATED METHOD 01/10/2025 8:20 AM [facility] Crystals, Urine LT CALCIUM OXALATE /LPF LAB URINALYSIS - AUTOMATED METHOD 01/10/2025 8:20 AM [facility] Bacteria, Urine Many(A) Negative /HPF LAB URINALYSIS - AUTOMATED METHOD 01/10/2025 8:20 AM EDT [facility] Hyaline Casts, Urine 1.2 0 - 3 /LPF LAB URINALYSIS - AUTOMATED METHOD 01/10/2025 8:20 AM EDT [facility] Urine Urine specimen obtained by clean catch procedure / Unknown 01/09/2025 7:00 PM EDT 01/10/2025 7:31 AM EDT us Chai Carias MD LAB URINE ORDERABLES Final Resul t Performing Organization Address [facility]/ZIP Co de Phone Number [facility] [address] [place] [address], [place] [phone] * Culture urine (01/09/2025 7:00 PM EDT) Culture, Urine >100,000 CFU/mL Mixed bacterial morphotypes present suggestive of possible contamination during collection. Suggest appropriate recollection if clinically indicated. 01/11/2025 10:19 AM EDT [facility] Urine Urine specimen obtained by clean catch procedure / Unknown 01/09/2025 7:00 PM EDT 01/10/2025 7:31 AM EDT us Chai Carias MD LAB MICROBIOLOGY - GENERAL ORDER CHANTELLE Final Result Performing Organization Address City/[facility]/ZIP Co de Phone Number [facility] [address] [place] [address], [place] [phone] documented in this encounter Visit Diagnoses Diagnosis Dysuria documented in this encounter Additional Health Concerns Infection Onset Date Last Indicated Resolved Time Respiratory Rule-Out 07/29/2025 07/29/2025 025 10:21 AM EDT COVID-19 07/29/2025 07/29/2025 08/28/2025 7:04 PM EST documented as of this encounter Care Teams Cornice Maker Relationship Specialty Start Date End Date Rosa Castro MD [address] [place] [phone] PCP - General 03/14/25 documented as of this encounter
--- OUTSIDE RECORDS SUMMARY | 2025-10-16 11:44 | XMS_ITS | Encounter Summary ---
Author Organization [facility] Address [address] [place] [address] Care Team Providers Care Trucker Hand Name Role Phone Rosa Castro MD Primary Care Provider [phone] Encounter Details Date Type Department Care Team (Late st Contact Info) Description 09/30/2025 Lab Requisition [facility] [address] [facility] [place] [address] Chai Carias MD [address] [place] [address] [address] [place] Gastro-esophageal reflux disease without esophagitis; Anemia, unspecified Social History Tobacco Use Types Packs/Day [...] as of this encounter Visit Diagnoses Diagnosis Gastro-esophageal reflux disease without esophagitis Anemia, unspecified documented in this encounter Care Teams Trucker Hand Relationship Specialty Start Date End Date Rosa Castro MD [address] [place] [phone] PCP - General 03/14/25 documented as of this encounter
--- OUTSIDE RECORDS SUMMARY | 2025-10-16 11:44 | XMS_ITS | Encounter Summary ---
Author Organization [facility] Address [address] [place] [address] Care Team Providers Care [employer] Senior Officer Name Role Phone Rosa Castro MD Primary Care Provider [phone] Encounter Details Date Type Department Care Team (Late st Contact Info) Description 07/01/2025 Lab Requisition [facility] [address] [facility] [place] [address] Chai Cairas MD [address] [place] [address] [address] [place] Morbid (severe) obesity due to excess [...] LAB CHEMISTRY METHOD 07/01/2025 9:47 AM EDT [facility] Blood Venous blood specimen / Unknown 07/01/2025 6:50 AM EDT 07/01/2025 8:18 AM EDT us Chai Carias MD LAB BLOOD ORDERABLES Final Resul t Performing Organization Address [facility] Co de Phone Number [facility] [address] [place] [address], [place] [phone] * Thyroid stimulating hormone (07/01/2025 6:50 AM EDT) [facility] TSH 1.89 0.40 - 4.00 mcIU/mL LAB CHEMISTRY METHOD 07/01/2025 9:47 AM EDT [facility] Blood Venous blood specimen / Unknown 07/01/2025 6:50 AM EDT 07/01/2025 8:18 AM EDT us Chai Carias MD LAB BLOOD ORDERABLES Final Resul t Performing Organization Address [facility] de Phone Number [facility] [address] [place] [address], [place] [phone] * Lipid panel with reflex to direct LDL (07/01/2025 6:50 AM EDT) [facility] Cholesterol 118 0 - 200 mg/dL LAB CHEMISTRY METHOD 07/01/2025 8:51 AM EDT [facility] Triglycerides 131 0 - 150 mg/dL LAB CHEMISTRY METHOD 07/01/2025 8:51 AM EDT [facility] HDL 56 >=40 mg/dL LAB CHEMISTRY METHOD 07/01/2025 8:51 AM EDT [facility] LDL Calculated 36 0 - 100 mg/dL LAB CHEMISTRY METHOD 07/01/2025 8:51 AM EDT [facility] Comment:Estimated LDL Calcul ated using equation: Total cholesterol - HDL cholesterol - (Triglycerides/5) VLDL Cholesterol Josiah 26.2 mg/dL LAB CHEMISTRY METHOD 07/01/2025 8:51 AM EDT [facility] Non HDL Chol. (LDL+VLDL) 62 <145 mg/dL LAB CHEMISTRY METHOD 07/01/2025 8:51 AM EDT [facility] Chol/HDL Ratio 2.1 0.0 - 4.4 LAB CHEMISTRY METHOD 07/01/2025 8:51 AM EDT [facility] Blood Venous blood specimen / Unknown 07/01/2025 6:50 AM EDT 07/01/2025 8:18 AM EDT us Chai Carias MD LAB BLOOD ORDERABLES Final Resul t [facility] [address] [place] [address], documented in this encounter Visit Diagnoses Diagnosis Morbid (severe) obesity due to excess calories (CMS/HCC V24, CMS/HCC V28) Other hyperlipidemia documented in this encounter Additional Health Concerns Infection Onset Date Last Indicated Resolved Time Respiratory Rule-Out 07/29/2025 07/29/2025 025 10:21 AM EDT COVID-19 07/29/2025 07/29/2025 08/28/2025 7:04 PM EST documented as of this encounter Care Teams [employer] Senior [employer] Relationship Specialty Start Date End Date Rosa Castro MD [address] [place] [phone] PCP - General 03/14/25 documented as of this encounter
--- OUTSIDE RECORDS SUMMARY | 2025-10-16 11:44 | XMS_ITS | Clinical Summary ---
Author Organization [facility] Address [address] [place] [address] Phone Care Team Providers Care Supervising Architect Name Role Phone Rosa Castro MD Primary Care Provider [phone] Encounters Date Type Department Care Team Description 10/03/[address] [facility] [address] [place] [phone] Chai Carias MD Gastro-esophageal reflux disease without esophagitis; Anemia, unspecified 09/30/[address] [facility] [address] [place] [phone] Chai Carias MD Gastro-esophageal reflux disease without esophagitis; Anemia, unspecified 09/05/[address] [facility] [address] [place] [phone] Chai Carias MD Type 2 diabetes mellitus without complications (CMS/HCC V24, CMS/HCC V28); Morbid (severe) obesity due to excess calories (CMS/HCC V24, CMS/[facility] V28) 07/29/[address] [facility] [address] [place] [phone] Chai Carias MD Cough, unspecified; Nasal congestion; Shortness of breath from Last 3 Months Social History Tobacco Use Types Packs/Day Years Used Date Smoking Tobacco: Never Assessed Comments Unknown Sex and Gender Information Value Date Recorded Sex Assigned at Not on file Legal Sex Female 3:40 PM EDT Gender Identity Not on file Sexual Orientation Not on file Plan of Treatment Health Maintenance Due Date Last Done Comments Breast Cancer Screening 1957 Colorectal Cancer Screening: Colonoscopy 1957 Diabetes: Annual Foot Exam 1967 Diabetes: Annual Retina Eye Exam 1967 DTaP,Tdap,and Td Vaccines (1 - Tdap) 1976 Pneumococcal Vaccine: 50+ Years (1 of 2 - PCV) 1976 Zoster Vaccines (1 of 2) 2007 Falls Risk Assessment 08/19/2024 Hepatitis C Screening 08/19/2024 Medicare Annual Wellness Visit 08/19/2024 Osteoporosis Screening (Bone Density Screening) 08/19/2024 Social Influencers of Health Screening 08/19/2024 Depression Screening 10/24/2024 Diabetes: Annual Urine Albumin-Creatinine Ratio (uACR) 03/08/2025 COVID-19 Vaccine ( season) 2025 Influenza Vaccine (#1) 2025 Diabetes: Blood Sugar Control Test (HGBA1C) 03/05/2026 09/05/2025, 06/03/2025, 03/08/2025, Additional history exists Diabetes: Annual GFR (Glomerular Filtration Rate) 09/05/2026 09/05/2025, 06/03/2025, 03/08/2025, Additional history exists Cholesterol Screening (Lipid Panel) 07/01/2030 07/01/2025, 12/24/2024 [...] 20 months Aged Out No longer eligible based on patient's age to complete this topic Varicella Vaccines Aged Out No longer eligible based on patient's age to complete this topic Procedures Procedure Name Priority Date/Time Associated Diagnosis Comments SST - GOLD Routine 10/03/2025 7:02 AM EST Gastro-esophageal reflux disease without esophagitis Anemia, unspecified IRON AND TIBC Routine 10/03/2025 7:02 AM EST Gastro-esophageal reflux disease without esophagitis Anemia, unspecified FERRITIN Routine 10/03/2025 7:02 AM EST Gastro-esophageal reflux disease without esophagitis Anemia, unspecified LAVENDER - EDTA Routine 09/05/2025 6:36 AM EST Type 2 diabetes mellitus without complications (CMS/HCC V24, CMS/HCC V28) Morbid (severe) obesity due to excess calories (CMS/HCC V24, CMS/HCC V28) HEMOGLOBIN A1C Routine 09/05/2025 6:36 AM EST Type 2 diabetes mellitus without complications (CMS/HCC V24, CMS/HCC V28) Morbid (severe) obesity due to excess calories (CMS/HCC V24, CMS/HCC V28) COMPLETE BLOOD COUNT Routine 09/05/2025 6:36 AM EST Type 2 diabetes mellitus without complications (CMS/HCC V24, CMS/HCC V28) Morbid (severe) obesity due to excess calories (CMS/HCC V24, CMS/HCC V28) COMPREHENSIVE METABOLIC PANEL Routine 09/05/2025 6:36 AM EST Type 2 diabetes mellitus without complications (CMS/HCC V24, CMS/HCC V28) Morbid (severe) obesity due to excess calories (CMS/HCC V24, CMS/HCC V28) [id number], RSV, FLU A AND B QUALITATIVE RT-PCR, LOCAL REFERENCE LAB Routine 07/29/2025 9:43 AM EDT Cough, unspecified Nasal congestion Shortness of breath LIPID PANEL WITH REFLEX TO DIRECT LDL Routine 07/01/2025 6:50 AM EDT Morbid (severe) obesity due to excess calories (CMS/HCC V24, CMS/HCC V28) Other hyperlipidemia from Last 3 Months or Most Recently Relevant to Health Maintenance Results * SST tube (10/03/2025 7:02 AM EST) Extra Tube Hold for add-ons. 10/03/2025 9:02 AM EST [facility] Comment:Auto resulted. Blood Venous blood specimen / Unknown 10/03/2025 7:02 AM EST 10/03/2025 7:54 AM EST us Chai Carias MD LAB BLOOD ORDERABLES Final Resul t Performing Organization Address [facility]/ZIP Co de Phone Number [facility] [address] [place] [address], [place] [phone] * (ABNORMAL) Iron and TIBC (10/03/2025 7:02 AM EST) Pathologist [facility] Iron 31(L) 40 - 150 mcg/dL 10/03/2025 8:44 AM EST [facility] TIBC 337 250 - 450 mcg/dL 10/03/2025 8:44 AM EST [facility] Iron Saturation 9(L) 15 - 50 % 8:44 AM EST [facility] Blood Venous blood specimen / Unknown 10/03/2025 7:02 AM EST 10/03/2025 7:54 AM EST us Chai Carias MD LAB BLOOD ORDERABLES Final Resul t [facility] [address] [place] [address], [place] [phone] * Ferritin (10/03/2025 7:02 AM EST) Pathologist [facility] Ferritin 28 7 - 271 ng/mL 10/03/2025 8:44 AM EST [facility] Blood Venous blood specimen / Unknown 10/03/2025 7:02 AM EST 10/03/2025 7:54 AM EST us Chai Carias MD LAB BLOOD ORDERABLES Final Resul t [facility] [address] [place] [address], [place] [phone] * Lavender tube (09/05/2025 6:36 AM EST) [facility] Extra Tube Hold for add-ons. 09/05/2025 9:01 AM EST [facility] Comment:Auto resulted. Blood Venous blood specimen / Unknown 09/05/2025 6:36 AM EST 09/05/2025 7:54 AM EST us Chai Carias MD LAB BLOOD ORDERABLES Final Resul t Performing Organization Address City/[facility]/ZIP Co de Phone Number [facility] [address] [place] [address], [place] [phone] * (ABNORMAL) Complete blood count (09/05/2025 6:36 AM EST) [facility] WBC 9.4 4.8 - 10.8 K/mcL LAB HEMETOLOGY METHOD 09/05/2025 8:02 AM [facility] RBC 3.60(L) 3.80 - 4.80 M/[facility] LAB HEMETOLOGY METHOD 09/05/2025 8:02 AM [facility] Hemoglobin 9.7(L) 11.5 - 16.0 g/dL LAB HEMETOLOGY METHOD 09/05/2025 8:02 AM [facility] Hematocrit 29.9(L) 35.0 - 47.0 % LAB HEMETOLOGY METHOD 09/05/2025 8:02 AM [facility] MCV 83.1 79.0 - 98.0 FL LAB HEMETOLOGY METHOD 09/05/2025 8:02 AM EST [facility] MCH 26.9(L) 27.0 - 32.0 pcg LAB HEMETOLOGY METHOD 09/05/2025 8:02 AM EST [facility] MCHC 32.4 32.0 - 37.0 g/dL LAB HEMETOLOGY METHOD 09/05/2025 8:02 AM [facility] RDW 17.7(H) 11.0 - 15.0 % LAB HEMETOLOGY METHOD 09/05/2025 8:02 AM EST [facility] Platelets 218 130 - 400 K/mcL LAB HEMETOLOGY METHOD 09/05/2025 8:02 AM [facility] MPV 9.8 7.0 - 11.0 FL LAB HEMETOLOGY METHOD 09/05/2025 8:02 AM [facility] NRBC 0.0 <1.0 % LAB HEMETOLOGY METHOD 09/05/2025 8:02 AM [facility] NRBC Absolute 0.00 <0.10 K/mcL LAB HEMETOLOGY METHOD 09/05/2025 8:02 AM [facility] Blood Venous blood specimen / Unknown 09/05/2025 6:36 AM EST 09/05/2025 7:53 AM EST us Chai Carias MD LAB BLOOD ORDERABLES Final Resul t [facility] [address] [place] [address], * Hemoglobin A1c (09/05/2025 6:36 AM EST) Hemoglobin A1C 5.4 <6.5 % LAB CHEMISTRY METHOD 09/05/2025 9:50 AM EST [facility] Mean Bld Glu Estim. 108 mg/dL LAB CHEMISTRY METHOD 09/05/2025 9:50 AM [facility] Blood Venous blood specimen / Unknown 09/05/2025 6:36 AM EST 09/05/2025 7:53 AM EST Chai Carias MD LAB BLOOD ORDERABLES Final Resul t [facility] [address] [place] [address], [place] [phone] * (ABNORMAL) Comprehensive metabolic panel (09/05/2025 6:36 AM EST) Sodium 137 133 - 145 mmol/L LAB CHEMISTRY METHOD 09/05/2025 8:33 AM [facility] Potassium 4.6 3.5 - 5.5 mmol/L LAB CHEMISTRY METHOD 09/05/2025 8:33 AM [facility] Chloride 103 96 - 110 mmol/L LAB CHEMISTRY METHOD 09/05/2025 8:33 AM [facility] CO2 27 21 - 32 mmol/L LAB CHEMISTRY METHOD 09/05/2025 8:33 AM [facility] Anion Gap 7 3 - 11 LAB CHEMISTRY METHOD 09/05/2025 8:33 AM [facility] Glucose 97 70 - 100 mg/dL LAB CHEMISTRY METHOD 09/05/2025 8:33 AM [facility] BUN 18 5 - 25 mg/dL LAB CHEMISTRY METHOD 09/05/2025 8:33 AM [facility] Creatinine 0.71 0.50 - 1.10 mg/dL LAB CHEMISTRY METHOD 09/05/2025 8:33 AM [facility] eGFR 93 >=60 mL/min/1. 73m2 LAB CHEMISTRY METHOD 09/05/2025 8:33 AM [facility] Comment:Calculation based on the Chronic Kidney Disease Epidemiology Collaboration (CKD-EPI) equation refit without adjustment for race. BUN/Creatinine Ratio 25.4 LAB CHEMISTRY METHOD 09/05/2025 8:33 AM [facility] Calcium 9.2 8.5 - 10.5 mg/dL LAB CHEMISTRY METHOD 09/05/2025 8:33 AM [facility] AST (SGOT) 20 10 - 42 unit/L LAB CHEMISTRY METHOD 09/05/2025 8:33 AM [facility] ALT (SGPT) 27 10 - 60 unit/L LAB CHEMISTRY METHOD 09/05/2025 8:33 AM [facility] Alkaline Phosphatase 117 42 - 121 unit/L LAB CHEMISTRY METHOD 09/05/2025 8:33 AM [facility] Total Protein 6.7 6.0 - 8.0 g/dL LAB CHEMISTRY METHOD 09/05/2025 8:33 AM [facility] Albumin 3.1(L) 3.2 - 5.0 g/dL LAB CHEMISTRY METHOD 09/05/2025 8:33 AM [facility] Total Bilirubin 0.3 0.0 - 1.4 mg/dL LAB CHEMISTRY METHOD 09/05/2025 8:33 AM [facility] Blood Venous blood specimen / Unknown 09/05/2025 6:36 AM EST 09/05/2025 7:53 AM EST us Chai Carias MD LAB BLOOD ORDERABLES Final Resul t [facility] [address] [place] [address], * (ABNORMAL) [id number], RSV, Influenza A and B qualitative RT-PCR (07/29/2025 9:43 AM EDT) SARS COV-2 Detected(A ) Not Detected LAB MOLECULAR DIAGNOSTICS METHOD 07/30/2025 10:21 AM EDT [facility] Comment: Disclaimer: The manner in which this information is used to guide patient care is the responsibility of the healthcare provider. Testing was performed using the WhenSoon SARS-CoV-2 test. This test has been authorized [...] for Healthcare Providers can be found at: https://www.fda.gov/media/926478/download Fact sheet for Patients can be found at: https://www.fda.gov/media/373433/download Influenza A PCR Not Detected Not Detected LAB MOLECULAR DIAGNOSTICS METHOD 07/30/2025 10:21 AM EDT [facility] Influenza B PCR Not Detected Not Detected LAB MOLECULAR DIAGNOSTICS METHOD 07/30/2025 10:21 AM EDT [facility] RSV PCR Not Detected Not Detected LAB MOLECULAR DIAGNOSTICS METHOD 07/30/2025 10:21 AM EDT [facility] Swab Nasopharyngeal structure / Unknown 07/29/2025 9:43 AM EDT 07/29/2025 12:26 PM EDT Chai Carias MD LAB MICROBIOLOGY - GENERAL ORDER CHANTELLE Final Result [facility] [address] [place] [address], * Lipid panel with reflex to direct LDL (07/01/2025 6:50 AM EDT) Cholesterol 118 0 - 200 mg/dL LAB CHEMISTRY METHOD 07/01/2025 8:51 AM EDT [facility] Triglycerides 131 0 - 150 mg/dL LAB CHEMISTRY METHOD 07/01/2025 8:51 AM EDT [facility] HDL 56 >=40 mg/dL LAB CHEMISTRY METHOD 07/01/2025 8:51 AM EDT [facility] LDL Calculated 36 0 - 100 mg/dL LAB CHEMISTRY METHOD 07/01/2025 8:51 AM EDT [facility] Comment:Estimated LDL Calcul ated using equation: Total cholesterol - HDL cholesterol - (Triglycerides/5) VLDL Cholesterol Josiah 26.2 mg/dL LAB CHEMISTRY METHOD 07/01/2025 8:51 AM EDT [facility] Non HDL Chol. (LDL+VLDL) 62 <145 mg/dL LAB CHEMISTRY METHOD 07/01/2025 8:51 AM EDT [facility] Chol/HDL Ratio 2.1 0.0 - 4.4 LAB CHEMISTRY METHOD 07/01/2025 8:51 AM T [facility] Blood Venous blood specimen / Unknown 07/01/2025 6:50 AM EDT 07/01/2025 8:18 AM EDT us Chai Carias MD LAB BLOOD ORDERABLES Final Resul t [facility] [address] [place] [address], from Last 3 Months or Most Recently Relevant to Health Maintenance Insurance MEDICARE [employer] MEDICARE Care Teams Supervising Architect Relationship Specialty Start Date End Date Rosa Castro MD [address] [place] [phone] PCP - General 03/14/25
--- OUTSIDE RECORDS SUMMARY | 2025-10-16 11:44 | XMS_ITS | Encounter Summary ---
Author Organization [facility] Address [address] [place] [address] Care Team Providers Care Manufacturing Engineering Intern Name Role Phone Rosa Castro MD Primary Care Provider [phone] Encounter Details Date Type Department Care Team (Late st Contact Info) Description 11/27/[address] [facility] [address] [place] [address] Chai Carias MD [address] [place] [address] [address] [place] Type 2 diabetes mellitus with unspecified complications [...] AM EST) WBC 8.6 4.8 - 10.8 K/[facility] LAB HEMETOLOGY METHOD 11/27/2024 8:11 AM EST [facility] RBC 3.70(L) 3.80 - 4.80 M/mcL LAB HEMETOLOGY METHOD 11/27/2024 8:11 AM [facility] Hemoglobin 10.2(L) 11.5 - 16.0 g/dL LAB HEMETOLOGY METHOD 11/27/2024 8:11 AM [facility] Hematocrit 31.8(L) 35.0 - 47.0 % LAB HEMETOLOGY METHOD 11/27/2024 8:11 AM [facility] MCV 86.2 79.0 - 98.0 FL LAB HEMETOLOGY METHOD 11/27/2024 8:11 AM [facility] MCH 27.6 27.0 - 32.0 pcg LAB HEMETOLOGY METHOD 11/27/2024 8:11 AM [facility] MCHC 32.1 32.0 - 37.0 g/dL LAB HEMETOLOGY METHOD 11/27/2024 8:11 AM [facility] RDW 16.3(H) 11.0 - 15.0 % LAB HEMETOLOGY METHOD 11/27/2024 8:11 AM [facility] Platelets 206 130 - 400 K/mcL LAB HEMETOLOGY METHOD 11/27/2024 8:11 AM [facility] MPV 9.9 7.0 - 11.0 FL LAB HEMETOLOGY METHOD 11/27/2024 8:11 AM [facility] NRBC 0.0 <1.0 % LAB HEMETOLOGY METHOD 11/27/2024 8:11 AM [facility] NRBC Absolute 0.00 <0.10 K/mcL LAB HEMETOLOGY METHOD 11/27/2024 8:11 AM [facility] Blood Venous blood specimen / Unknown 11/27/2024 7:01 AM EST 11/27/2024 8:05 AM EST us Chai Carias MD LAB BLOOD ORDERABLES Final Resul t [facility] [address] [place] [address], [place] [phone] * Hemoglobin A1c (11/27/2024 7:01 AM EST) Pathologist [facility] Hemoglobin A1C 5.9 <6.5 % LAB CHEMISTRY METHOD 11/27/2024 2:05 PM EST [facility] Mean Bld Glu Estim. 123 mg/dL LAB CHEMISTRY METHOD 11/27/2024 2:05 PM [facility] Blood Venous blood specimen / Unknown 11/27/2024 7:01 AM EST 11/27/2024 8:05 AM EST us Chai Carias MD LAB BLOOD ORDERABLES Final Resul t Performing Organization Address [facility]/ZIP Co de Phone Number [facility] [address] [place] [address], [place] [phone] * (ABNORMAL) Comprehensive metabolic panel (11/27/2024 7:01 AM EST) [facility] Sodium 138 133 - 145 mmol/L LAB CHEMISTRY METHOD 11/27/2024 8:37 AM [facility] Potassium 4.2 3.5 - 5.5 mmol/L LAB CHEMISTRY METHOD 11/27/2024 8:37 AM [facility] Chloride 105 96 - 110 mmol/L LAB CHEMISTRY METHOD 11/27/2024 8:37 AM [facility] CO2 25 21 - 32 mmol/L LAB CHEMISTRY METHOD 11/27/2024 8:37 AM [facility] Anion Gap 8 3 - 11 LAB CHEMISTRY METHOD 11/27/2024 8:37 AM [facility] Glucose 86 70 - 100 mg/dL LAB CHEMISTRY METHOD 11/27/2024 8:37 AM [facility] BUN 16 5 - 25 mg/dL LAB CHEMISTRY METHOD 11/27/2024 8:37 AM [facility] Creatinine 0.76 0.50 - 1.10 mg/dL LAB CHEMISTRY METHOD 11/27/2024 8:37 AM [facility] eGFR 86 >=60 mL/min/1. 73m2 LAB CHEMISTRY METHOD 11/27/2024 8:37 AM [facility] Comment:Calculation based on the Chronic Kidney Disease Epidemiology Collaboration (CKD-EPI) equation refit without adjustment for race. BUN/Creatinine Ratio 21.1 LAB CHEMISTRY METHOD 11/27/2024 8:37 AM [facility] Calcium 8.8 8.5 - 10.5 mg/dL LAB CHEMISTRY METHOD 11/27/2024 8:37 AM [facility] AST (SGOT) 31 10 - 42 unit/L LAB CHEMISTRY METHOD 11/27/2024 8:37 AM [facility] ALT (SGPT) 23 10 - 60 unit/L LAB CHEMISTRY METHOD 11/27/2024 8:37 AM [facility] Alkaline Phosphatase 128(H) 42 - 121 unit/L LAB CHEMISTRY METHOD 11/27/2024 8:37 AM [facility] Total Protein 6.8 6.0 - 8.0 g/dL LAB CHEMISTRY METHOD 11/27/2024 8:37 AM [facility] Albumin 3.0(L) 3.2 - 5.0 g/dL LAB CHEMISTRY METHOD 11/27/2024 8:37 AM [facility] Total Bilirubin 0.4 0.0 - 1.4 mg/dL LAB CHEMISTRY METHOD 11/27/2024 8:37 AM [facility] Blood Venous blood specimen / Unknown 11/27/2024 7:01 AM EST 11/27/2024 8:05 AM EST us Chai Carias MD LAB BLOOD ORDERABLES Final Resul t [facility] [address] [place] [address], documented in this encounter Visit Diagnoses Diagnosis Type 2 diabetes mellitus with unspecified complications (CMS/HCC V24, CMS/HCC V28) documented in this encounter Additional Health Concerns Infection Onset Date Last Indicated Resolved Time Respiratory Rule-Out 07/29/2025 07/29/2025 025 10:21 AM EDT COVID-19 07/29/2025 07/29/2025 08/28/2025 7:04 PM EST documented as of this encounter Care Teams Manufacturing Engineering Intern Relationship Specialty Start Date End Date Rosa Castro MD [address] [place] [phone] PCP - General 03/14/25 documented as of this encounter
--- OUTSIDE RECORDS SUMMARY | 2025-10-16 11:44 | XMS_ITS | Encounter Summary ---
Author Organization [facility] Address [address] [place] [address] Care Team Providers Care Lumber Sticker Name Role Phone Rosa Castro MD Primary Care Provider [phone] Encounter Details Date Type Department Care Team (Late st Contact Info) Description 10/30/2024 Lab Requisition [facility] Lab [address] [place] [address] Chai Carias MD [address] [place] [address] [address] [place] Mixed incontinence Social History Tobacco Use Types [...] reflex microscopic (10/30/2024 12:45 PM EST) Specific [place] Urine 1.012 1.003 - 1.030 LAB URINALYSIS - AUTOMATED METHOD 10/30/2024 5:14 PM EST [facility] pH, Urine 6.0 5.0 - 8.0 pH LAB URINALYSIS - AUTOMATED METHOD 10/30/2024 5:14 PM EST [facility] Leukocytes, Urine Moderate(A) Negative LAB URINALYSIS - AUTOMATED METHOD 10/30/2024 5:14 PM [facility] Nitrite, Urine Positive(A) Negative LAB URINALYSIS - AUTOMATED METHOD 10/30/2024 5:14 PM [facility] Protein, Urine Negative <=Trace mg/dL LAB URINALYSIS - AUTOMATED METHOD 10/30/2024 5:14 PM [facility] Glucose, Urine Negative Negative mg/dL LAB URINALYSIS - AUTOMATED METHOD 10/30/2024 5:14 PM [facility] Ketones, Urine Negative Negative mg/dL LAB URINALYSIS - AUTOMATED METHOD 10/30/2024 5:14 PM [facility] Urobilinogen , Urine 1.0 0.2 - 1.0 mg/dL LAB URINALYSIS - AUTOMATED METHOD 10/30/2024 5:14 PM [facility] Bilirubin, Urine Negative Negative LAB URINALYSIS - AUTOMATED METHOD 10/30/2024 5:14 PM [facility] Blood, Urine Negative Negative LAB URINALYSIS - AUTOMATED METHOD 10/30/2024 5:14 PM [facility] RBC, Urine 4.0 0 - 4 /HPF LAB URINALYSIS - AUTOMATED METHOD 10/30/2024 5:14 PM [facility] WBC, Urine 52.6(H) 0 - 4 /HPF LAB URINALYSIS - AUTOMATED METHOD 10/30/2024 5:14 PM [facility] Squamous Epithelial, Urine 29 0 - 60 /LPF LAB URINALYSIS - AUTOMATED METHOD 10/30/2024 5:14 PM [facility] Bacteria, Urine Many(A) Negative /HPF LAB URINALYSIS - AUTOMATED METHOD 10/30/2024 5:14 PM [facility] Hyaline Casts, Urine 0.4 0 - 3 /LPF LAB URINALYSIS - AUTOMATED METHOD 10/30/2024 5:14 PM EST [facility] Urine Urine specimen obtained by clean catch procedure / Unknown Non-blood Collection / Unknown 10/30/2024 12:45 PM EST 10/30/2024 2:55 PM EST us Chai Carias MD LAB URINE ORDERABLES Final Resul t [facility] [address] [place] [address], * (ABNORMAL) Culture urine (10/30/2024 12:45 PM EST) Culture, Urine >100,000 CFU/mL Escherichia coli(A) NADER 11/01/2024 11:05 AM EST [facility] Urine Urine specimen obtained by clean catch procedure / Unknown Non-blood Collection / Unknown 10/30/2024 12:45 PM EST 10/30/2024 3:14 PM EST Narrative [facility] - 11/01/2024 11:05 AM [...] Escherichia coli Trimethoprim/Sulfamethoxazole NADER <=20 ug/ml: Susceptible Chai Carias MD LAB MICROBIOLOGY - GENERAL ORDER CHANTELLE Final Result [facility] [address] [place] [address], documented in this encounter Visit Diagnoses Diagnosis Mixed incontinence Mixed incontinence urge and stress (male)(female) documented in this encounter Additional Health Concerns Infection Onset Date Last Indicated Resolved Time Respiratory Rule-Out 07/29/2025 07/29/2025 025 10:21 AM EDT COVID-19 07/29/2025 07/29/2025 08/28/2025 7:04 PM EST documented as of this encounter Care Teams Lumber Sticker Relationship Specialty Start Date End Date Rosa Castro MD [address] [place] [phone] PCP - General 03/14/25 documented as of this encounter
--- OUTSIDE RECORDS SUMMARY | 2025-10-16 11:44 | XMS_ITS | Encounter Summary ---
Author Organization [facility] Address [address] [place] [address] Care Team Providers Care [id number] Tank Driver Name Role Phone Rosa Castro MD Primary Care Provider [phone] Encounter Details Date Type Department Care Team (Late st Contact Info) Description 01/16/2025 Lab Requisition [facility] [address] [facility] [place] [address] Chai Carias MD [address] [place] [address] [address] [place] Unspecified external cause status Social History Tobacco [...] external cause status documented in this encounter Additional Health Concerns Infection Onset Date Last Indicated Resolved Time Respiratory Rule-Out 07/29/2025 07/29/2025 025 10:21 AM EDT COVID-19 07/29/2025 07/29/2025 08/28/2025 7:04 PM EST documented as of this encounter Care Teams [id number] Tank Driver Relationship Specialty Start Date End Date Rosa Castro MD [address] [place] [address] [place] [phone] PCP - General 03/14/25 documented as of this encounter
--- OUTSIDE RECORDS SUMMARY | 2025-10-16 11:44 | XMS_ITS | Encounter Summary ---
Author Organization [facility] Address [address] [place] [address] Care Team Providers Care Gas Maker Name Role Phone Rosa Castro MD Primary Care Provider [phone] Encounter Details Date Type Department Care Team (Late st Contact Info) Description 10/03/2025 Lab Requisition [facility] - Main Lab [address] [place] [address] Chai Carias MD [address] [place] [address] [address] [place] Gastro-esophageal reflux disease without esophagitis; Anemia, unspecified [...] esophagitis Anemia, unspecified documented in this encounter Results * SST tube (10/03/2025 7:02 AM EST) Extra Tube Hold for add-ons. 10/03/2025 9:02 AM EST [facility] ([facility] Comment:Auto resulted. Blood Venous blood specimen / Unknown 10/03/2025 7:02 AM EST 10/03/2025 7:54 AM EST us Chai Carias MD LAB BLOOD ORDERABLES Final Resul t Performing Organization Address City/[facility]/ZIP Co de Phone Number [facility] [address] [place] [address], [place] [phone] * (ABNORMAL) Iron and TIBC (10/03/2025 7:02 AM EST) Iron 31(L) 40 - 150 mcg/dL 10/03/2025 8:44 AM EST [facility] TIBC 337 250 - 450 mcg/dL 10/03/2025 8:44 AM EST [facility] Iron Saturation 9(L) 15 - 50 % 8:44 AM EST [facility] Blood Venous blood specimen / Unknown 10/03/2025 7:02 AM EST 10/03/2025 7:54 AM EST us Chai Carias MD LAB BLOOD ORDERABLES Final Resul t Performing Organization Address [facility] Co de Phone Number [facility] [address] [place] [address], [place] [phone] * Ferritin (10/03/2025 7:02 AM EST) Ferritin 28 7 - 271 ng/mL 10/03/2025 8:44 AM EST [facility] Blood Venous blood specimen / Unknown 10/03/2025 7:02 AM EST 10/03/2025 7:54 AM EST us Chai Carias MD LAB BLOOD ORDERABLES Final Resul t [facility] [address] [place] [address], [place] [phone] documented in this encounter Visit Diagnoses Diagnosis Gastro-esophageal reflux disease without esophagitis Anemia, unspecified documented in this encounter Care Teams Gas Maker Relationship Specialty Start Date End Date Rosa Castro MD [address] [place] [address] [phone] PCP - General 03/14/25 documented as of this encounter
--- OUTSIDE RECORDS SUMMARY | 2025-10-16 11:44 | XMS_ITS | Encounter Summary ---
[facility] Organization [facility] Address [address] [place] [address] Care Team Providers Care Banquet Server Name Role Phone Rosa Castro MD Primary Care Provider [phone] Encounter Details Date Type Department Care Team (Late st Contact Info) Description 01/18/[address] [facility] [address] [place] [address] Chai Carias MD [address] [place] [address] [address] [place] Altered mental status, unspecified Social History Tobacco [...] reflex microscopic (01/18/2025 6:00 AM EDT) Specific [place] Urine 1.015 1.003 - 1.030 LAB URINALYSIS - AUTOMATED METHOD 01/18/2025 7:22 AM EDT [facility] pH, Urine 7.0 5.0 - 8.0 pH LAB URINALYSIS - AUTOMATED METHOD 01/18/2025 7:22 AM [facility] Leukocytes, Urine Moderate(A) Negative LAB URINALYSIS - AUTOMATED METHOD 01/18/2025 7:22 AM [facility] Nitrite, Urine Positive(A) Negative LAB URINALYSIS - AUTOMATED METHOD 01/18/2025 7:22 AM [facility] Protein, Urine Negative <=Trace mg/dL LAB URINALYSIS - AUTOMATED METHOD 01/18/2025 7:22 AM [facility] Glucose, Urine Negative Negative mg/dL LAB URINALYSIS - AUTOMATED METHOD 01/18/2025 7:22 AM [facility] Ketones, Urine Negative Negative mg/dL LAB URINALYSIS - AUTOMATED METHOD 01/18/2025 7:22 AM [facility] Urobilinogen , Urine 1.0 0.2 - 1.0 mg/dL LAB URINALYSIS - AUTOMATED METHOD 01/18/2025 7:22 AM [facility] Bilirubin, Urine Negative Negative LAB URINALYSIS - AUTOMATED METHOD 01/18/2025 7:22 AM [facility] Blood, Urine Negative Negative LAB URINALYSIS - AUTOMATED METHOD 01/18/2025 7:22 AM [facility] RBC, Urine 0.8 0 - 4 /HPF LAB URINALYSIS - AUTOMATED METHOD 01/18/2025 7:22 AM [facility] WBC, Urine 34.5(H) 0 - 4 /HPF LAB URINALYSIS - AUTOMATED METHOD 01/18/2025 7:22 AM [facility] Squamous Epithelial, Urine 1 0 - 60 /LPF LAB URINALYSIS - AUTOMATED METHOD 01/18/2025 7:22 AM [facility] Bacteria, Urine Many(A) Negative /HPF LAB URINALYSIS - AUTOMATED METHOD 01/18/2025 7:22 AM [facility] Hyaline Casts, Urine 0.8 0 - 3 /LPF LAB URINALYSIS - AUTOMATED METHOD 01/18/2025 7:22 AM EDT [facility] Urine Urine specimen from urinary conduit / Unknown 01/18/2025 6:00 AM EDT 01/18/2025 7:05 AM EDT us Chai Carias MD LAB URINE ORDERABLES Final Resul t [facility] [address] [place] [address], [place] [phone] * (ABNORMAL) Culture urine (01/18/2025 6:00 AM EDT) Culture, Urine >100,000 CFU/mL Escherichia coli(A) NADER 01/20/2025 11:14 AM EDT [facility] Comment: This is an edited result. Previous organism was Gram negative bacilli on 01/19/2025 at 0846 EDT. Culture, Urine 50,000-100,000 CFU/mL Escherichia coli(A) NADER 01/20/2025 11:14 AM EDT [facility] Comment: The organism value [...] MICROBIOLOGY - GENERAL ORDER CHANTELLE Final Result [facility]) [facility] [address] [place] [address], documented in this encounter Visit Diagnoses Diagnosis Altered mental status, unspecified documented in this encounter Additional Health Concerns Infection Onset Date Last Indicated Resolved Time Respiratory Rule-Out 07/29/2025 07/29/2025 025 10:21 AM EDT COVID-19 07/29/2025 07/29/2025 08/28/2025 7:04 PM EST documented as of this encounter Care Teams Banquet Server Relationship Specialty Start Date End Date Rosa Castro MD [address] [place] [phone] PCP - General 03/14/25 documented as of this encounter
--- OUTSIDE RECORDS SUMMARY | 2025-10-16 11:44 | XMS_ITS | Encounter Summary ---
Author Organization [facility] Address [address] [place] [address] Care Team Providers Care Pipe Production Worker Name Role Phone Rosa Castro MD Primary Care Provider [phone] Encounter Details Date Type Department Care Team (Late st Contact Info) Description 01/04/2025 Lab Requisition [facility] - Main Lab [address] [facility] [employer] [place] [address] Chai Carias MD [address] [place] [address] [address] [place] Personal history of pulmonary embolism Social History [...] LAB COAGULATION METHOD 01/04/2025 6:23 PM EDT [facility] Blood Venous blood specimen / Unknown 01/04/2025 5:15 PM EDT 01/04/2025 6:09 PM EDT Narrative [facility] - 01/04/2025 6:23 PM EDT D-Dimer <230 ng/mL (D-Dimer units) is the threshold for exclusion of DVT/PE. D-Dimer may be elevated in: Critically ill, severely infected, trauma patients, DIC, acute CVA, acute HI, unstable angina, AF, old age, , and smoking. D-Dimer may be decreased with: Initiation of heparin therapy and oral anticoagulants. Chai Carias MD LAB BLOOD ORDERABLES Final Resul t [facility] ([facility]) [facility] [address] [place] [address], documented in this encounter Visit Diagnoses Diagnosis Personal history of pulmonary embolism documented in this encounter Additional Health Concerns Infection Onset Date Last Indicated Resolved Time Respiratory Rule-Out 07/29/2025 07/29/2025 025 10:21 AM EDT COVID-19 07/29/2025 07/29/2025 08/28/2025 7:04 PM EST documented as of this encounter Care Teams Pipe Production Worker Relationship Specialty Start Date End Date Rosa Castro MD [address] [place] [phone] PCP - General 03/14/25 documented as of this encounter
--- OUTSIDE RECORDS SUMMARY | 2025-10-16 11:44 | XMS_ITS | Encounter Summary ---
[facility] Organization [facility] Address [address] [place] [address] Care Team Providers Care Paint Specialist Name Role Phone Rosa Castro MD Primary Care Provider [phone] Encounter Details Date Type Department Care Team (Late st Contact Info) Description 03/08/2025 Lab Requisition [facility] - Main Lab [address] [facility] [place] [address] Chai Carias MD [address] [place] [address] [address] [place] Type 2 diabetes mellitus without complications (CMS/HCC [...] * Lavender tube (03/08/2025 7:00 AM EDT) [facility] Extra Tube Hold for add-ons. 03/08/2025 9:01 AM EDT [facility] Comment:Auto resulted. Blood Venous blood specimen / Unknown 03/08/2025 7:00 AM EDT 03/08/2025 7:57 AM EDT us Chai Carias MD LAB BLOOD ORDERABLES Final Resul t Performing Organization Address [facility]/ZIP Co de Phone Number [facility] [address] [place] [address], [place] [phone] * Hemoglobin A1c (03/08/2025 7:00 AM EDT) [facility] Hemoglobin A1C 5.8 <6.5 % LAB CHEMISTRY METHOD 03/08/2025 12:00 PM EDT [facility] Mean Bld Glu Estim. 120 mg/dL LAB CHEMISTRY METHOD 03/08/2025 12:00 PM EDT [facility] Blood Venous blood specimen / Unknown 03/08/2025 7:00 AM EDT 03/08/2025 7:45 AM EDT us Chai Carias MD LAB BLOOD ORDERABLES Final Resul t Performing Organization Address City/[facility]/ZIP Co de Phone Number [facility] [address] [place] [address], [place] [phone] * (ABNORMAL) Complete blood count (03/08/2025 7:00 AM EDT) [facility] WBC 8.4 4.8 - 10.8 K/[facility] LAB HEMETOLOGY METHOD 03/08/2025 8:30 AM EDT [facility] RBC 4.10 3.80 - 4.80 M/[facility] LAB HEMETOLOGY METHOD 03/08/2025 8:30 AM EDT [facility] Hemoglobin 11.0(L) 11.5 - 16.0 g/dL LAB HEMETOLOGY METHOD 03/08/2025 8:30 AM EDT [facility] Hematocrit 35.3 35.0 - 47.0 % LAB HEMETOLOGY METHOD 03/08/2025 8:30 AM EDT [facility] MCV 87.2 79.0 - 98.0 FL LAB HEMETOLOGY METHOD 03/08/2025 8:30 AM EDT [facility] MCH 27.2 27.0 - 32.0 pcg LAB HEMETOLOGY METHOD 03/08/2025 8:30 AM EDT [facility] MCHC 31.2(L) 32.0 - 37.0 g/dL LAB HEMETOLOGY METHOD 03/08/2025 8:30 AM EDT [facility] RDW 16.9(H) 11.0 - 15.0 % LAB HEMETOLOGY METHOD 03/08/2025 8:30 AM EDT [facility] Platelets 194 130 - 400 K/mcL LAB HEMETOLOGY METHOD 03/08/2025 8:30 AM EDT [facility] MPV 10.2 7.0 - 11.0 FL LAB HEMETOLOGY METHOD 03/08/2025 8:30 AM EDT [facility] NRBC 0.0 <1.0 % LAB HEMETOLOGY METHOD 03/08/2025 8:30 AM EDT [facility] NRBC Absolute 0.00 <0.10 K/mcL LAB HEMETOLOGY METHOD 03/08/2025 8:30 AM EDT [facility] Blood Venous blood specimen / Unknown 03/08/2025 7:00 AM EDT 03/08/2025 7:45 AM EDT us Chai Carias MD LAB BLOOD ORDERABLES Final Resul t [facility] [address] [place] [address], [place] [phone] * (ABNORMAL) Comprehensive metabolic panel (03/08/2025 7:00 AM EDT) Sodium 140 133 - 145 mmol/L LAB CHEMISTRY METHOD 03/08/2025 9:04 AM [facility] Potassium 4.2 3.5 - 5.5 mmol/L LAB CHEMISTRY METHOD 03/08/2025 9:04 AM [facility] Chloride 104 96 - 110 mmol/L LAB CHEMISTRY METHOD 03/08/2025 9:04 AM [facility] CO2 27 21 - 32 mmol/L LAB CHEMISTRY METHOD 03/08/2025 9:04 AM [facility] Anion Gap 9 3 - 11 LAB CHEMISTRY METHOD 03/08/2025 9:04 AM [facility] Glucose 84 70 - 100 mg/dL LAB CHEMISTRY METHOD 03/08/2025 9:04 AM [facility] BUN 18 5 - 25 mg/dL LAB CHEMISTRY METHOD 03/08/2025 9:04 AM [facility] Creatinine 0.76 0.50 - 1.10 mg/dL LAB CHEMISTRY METHOD 03/08/2025 9:04 AM [facility] eGFR 86 >=60 mL/min/1. 73m2 LAB CHEMISTRY METHOD 03/08/2025 9:04 AM [facility] Comment:Calculation based on the Chronic Kidney Disease Epidemiology Collaboration (CKD-EPI) equation refit without adjustment for race. BUN/Creatinine Ratio 23.7 LAB CHEMISTRY METHOD 03/08/2025 9:04 AM [facility] Calcium 9.0 8.5 - 10.5 mg/dL LAB CHEMISTRY METHOD 03/08/2025 9:04 AM [facility] AST (SGOT) 33 10 - 42 unit/L LAB CHEMISTRY METHOD 03/08/2025 9:04 AM EDT [facility] ALT (SGPT) 26 10 - 60 unit/L LAB CHEMISTRY METHOD 03/08/2025 9:04 AM EDT [facility] Alkaline Phosphatase 148(H) 42 - 121 unit/L LAB CHEMISTRY METHOD 03/08/2025 9:04 AM EDT [facility] Total Protein 7.2 6.0 - 8.0 g/dL LAB CHEMISTRY METHOD 03/08/2025 9:04 AM T [facility] Albumin 3.1(L) 3.2 - 5.0 g/dL LAB CHEMISTRY METHOD 03/08/2025 9:04 AM [facility] Total Bilirubin 0.4 0.0 - 1.4 mg/dL LAB CHEMISTRY METHOD 03/08/2025 9:04 AM [facility] Blood Venous blood specimen / Unknown 03/08/2025 7:00 AM EDT 03/08/2025 7:45 AM EDT us Chai Carias MD LAB BLOOD ORDERABLES Final Resul t [facility] [address] [place] [address], documented in this encounter Visit Diagnoses Diagnosis Type 2 diabetes mellitus without complications (CMS/HCC V24, CMS/HCC V28) documented in this encounter Additional Health Concerns Infection Onset Date Last Indicated Resolved Time Respiratory Rule-Out 07/29/2025 07/29/2025 025 10:21 AM EDT COVID-19 07/29/2025 07/29/2025 08/28/2025 7:04 PM EST documented as of this encounter Care Teams Paint Specialist Relationship Specialty Start Date End Date Rosa Castro MD [address] [place] [phone] PCP - General 03/14/25 documented as of this encounter
--- OUTSIDE RECORDS SUMMARY | 2025-10-16 11:44 | XMS_ITS | Encounter Summary ---
Author Organization [facility] Address [address] [place] [address] Care Team Providers Care Precision Machinist Name Role Phone Rosa Castro MD Primary Care Provider [phone] Encounter Details Date Type Department Care Team (Late st Contact Info) Description 09/05/2025 Lab Requisition [facility] - Main Lab [address] [facility] [place] [address] Chai Carias MD [address] [place] [address] [address] [place] Type 2 diabetes mellitus without complications (CMS/HCC V24, CMS/HCC V28); Morbid (severe) obesity due to excess calories (CMS/HCC V24, CMS/HCC V28) Social History Tobacco [...] Associated Diagnosis Comments LAVENDER - EDTA Routine 09/05/2025 6:36 AM [...] Morbid (severe) obesity due to excess calories (CMS/[facility] V24, [facility] V28) COMPREHENSIVE METABOLIC PANEL Routine 09/05/2025 6:36 AM EST Type 2 diabetes mellitus without complications ([facility] V24, [facility] V28) Morbid (severe) obesity due to excess calories ([facility] V24, [facility] V28) documented in this encounter Results * Lavender tube (09/05/2025 6:36 AM EST) [facility] Extra Tube Hold for add-ons. 09/05/2025 9:01 AM EST [facility] Comment:Auto resulted. Blood Venous blood specimen / Unknown 09/05/2025 6:36 AM EST 09/05/2025 7:54 AM EST us Chai Carias MD LAB BLOOD ORDERABLES Final Resul t Performing Organization Address City/[facility]/ZIP Co de Phone Number [facility] [address] [place] [address], [place] [phone] * Hemoglobin A1c (09/05/2025 6:36 AM EST) [facility] Hemoglobin A1C 5.4 <6.5 % LAB CHEMISTRY METHOD 09/05/2025 9:50 AM EST [facility] Mean Bld Glu Estim. 108 mg/dL LAB CHEMISTRY METHOD 09/05/2025 9:50 AM EST [facility] Blood Venous blood specimen / Unknown 09/05/2025 6:36 AM EST 09/05/2025 7:53 AM EST us Chai Carias MD LAB BLOOD ORDERABLES Final Resul t [facility] [address] [place] [address], [place] [phone] * (ABNORMAL) Complete blood count (09/05/2025 6:36 AM EST) [facility] WBC 9.4 4.8 - 10.8 K/mcL LAB HEMETOLOGY METHOD 09/05/2025 8:02 AM [facility] RBC 3.60(L) 3.80 - 4.80 M/mcL LAB HEMETOLOGY METHOD 09/05/2025 8:02 AM [facility] Hemoglobin 9.7(L) 11.5 - 16.0 g/dL LAB HEMETOLOGY METHOD 09/05/2025 8:02 AM [facility] Hematocrit 29.9(L) 35.0 - 47.0 % LAB HEMETOLOGY METHOD 09/05/2025 8:02 AM [facility] MCV 83.1 79.0 - 98.0 FL LAB HEMETOLOGY METHOD 09/05/2025 8:02 AM [facility] MCH 26.9(L) 27.0 - 32.0 pcg LAB HEMETOLOGY METHOD 09/05/2025 8:02 AM [facility] MCHC 32.4 32.0 - 37.0 g/dL LAB HEMETOLOGY METHOD 09/05/2025 8:02 AM [facility] RDW 17.7(H) 11.0 - 15.0 % LAB HEMETOLOGY METHOD 09/05/2025 8:02 AM [facility] Platelets 218 130 - 400 K/mcL LAB HEMETOLOGY METHOD 09/05/2025 8:02 AM [facility] MPV 9.8 7.0 - 11.0 FL LAB HEMETOLOGY METHOD 09/05/2025 8:02 AM [facility] NRBC 0.0 <1.0 % LAB HEMETOLOGY METHOD 09/05/2025 8:02 AM [facility] NRBC Absolute 0.00 <0.10 K/mcL LAB HEMETOLOGY METHOD 09/05/2025 8:02 AM [facility] Blood Venous blood specimen / Unknown 09/05/2025 6:36 AM EST 09/05/2025 7:53 AM EST Chai Carias MD LAB BLOOD ORDERABLES Final Resul t [facility] [address] [place] [address], * (ABNORMAL) Comprehensive metabolic panel (09/05/2025 6:36 AM EST) Sodium 137 133 - 145 mmol/L LAB CHEMISTRY METHOD 09/05/2025 8:33 AM [facility] Potassium 4.6 3.5 - 5.5 mmol/L LAB CHEMISTRY METHOD 09/05/2025 8:33 AM [facility] Chloride 103 96 - 110 mmol/L LAB CHEMISTRY METHOD 09/05/2025 8:33 AM [facility] CO2 27 21 - 32 mmol/L LAB CHEMISTRY METHOD 09/05/2025 8:33 AM [facility] Anion Gap 7 3 - 11 LAB CHEMISTRY METHOD 09/05/2025 8:33 AM [facility] Glucose 97 70 - 100 mg/dL LAB CHEMISTRY METHOD 09/05/2025 8:33 AM [facility] BUN 18 5 - 25 mg/dL LAB CHEMISTRY METHOD 09/05/2025 8:33 AM [facility] Creatinine 0.71 0.50 - 1.10 mg/dL LAB CHEMISTRY METHOD 09/05/2025 8:33 AM [facility] eGFR 93 >=60 mL/min/1. 73m2 LAB CHEMISTRY METHOD 09/05/2025 8:33 AM [facility] Comment:Calculation based on the Chronic Kidney Disease Epidemiology Collaboration (CKD-EPI) equation refit without adjustment for race. BUN/Creatinine Ratio 25.4 LAB CHEMISTRY METHOD 09/05/2025 8:33 AM [facility] Calcium 9.2 8.5 - 10.5 mg/dL LAB CHEMISTRY METHOD 09/05/2025 8:33 AM [facility] AST (SGOT) 20 10 - 42 unit/L LAB CHEMISTRY METHOD 09/05/2025 8:33 AM [facility] ALT (SGPT) 27 10 - 60 unit/L LAB CHEMISTRY METHOD 09/05/2025 8:33 AM [facility] Alkaline Phosphatase 117 42 - 121 unit/L LAB CHEMISTRY METHOD 09/05/2025 8:33 AM [facility] Total Protein 6.7 6.0 - 8.0 g/dL LAB CHEMISTRY METHOD 09/05/2025 8:33 AM [facility] Albumin 3.1(L) 3.2 - 5.0 g/dL LAB CHEMISTRY METHOD 09/05/2025 8:33 AM [facility] Total Bilirubin 0.3 0.0 - 1.4 mg/dL LAB CHEMISTRY METHOD 09/05/2025 8:33 AM [facility] Blood Venous blood specimen / Unknown 09/05/2025 6:36 AM EST 09/05/2025 7:53 AM EST us Chai Carias MD LAB BLOOD ORDERABLES Final Resul t [facility] [address] [place] [address], [place] [phone] documented in this encounter Visit Diagnoses Diagnosis Type 2 diabetes mellitus without complications (CMS/HCC V24, CMS/HCC V28) Morbid (severe) obesity due to excess calories (CMS/HCC V24, CMS/HCC V28) documented in this encounter Care Teams Precision Machinist Relationship Specialty Start Date End Date Rosa Castro MD [address] [place] [phone] PCP - General 03/14/25 documented as of this encounter
--- OUTSIDE RECORDS SUMMARY | 2025-10-16 11:44 | XMS_ITS | Encounter Summary ---
Author Organization [facility] Address [address] [place] [address] Care Team Providers Care Residential Remodeling Subcontractor Name Role Phone Rosa Castro MD Primary Care Provider [phone] Encounter Details Date Type Department Care Team (Late st Contact Info) Description 12/24/2024 Lab Requisition [facility] Lab [address] [place] [address] Chai Carias MD [address] [place] [address] [address] [place] Other hyperlipidemia; Other specified hypothyroidism; Vitamin [...] CHEMISTRY METHOD 12/24/2024 8:37 AM EST [facility] Blood Venous blood specimen / Unknown 12/24/2024 6:50 AM EST 12/24/2024 7:47 AM EST us Chai Carias MD LAB BLOOD ORDERABLES Final Resul t Performing Organization Address [facility]/ZIP Co de Phone Number [facility] LAB [address] [place] [address], [place] [phone] * Thyroid stimulating hormone (12/24/2024 6:50 AM EST) TSH 2.16 0.40 - 4.00 mcIU/mL LAB CHEMISTRY METHOD 12/24/2024 8:37 AM EST [facility] LAB Blood Venous blood specimen / Unknown 12/24/2024 6:50 AM EST 12/24/2024 7:47 AM EST us Chai Carias MD LAB BLOOD ORDERABLES Final Resul t Performing Organization Address City/[facility]/ZIP Co de Phone Number [facility] [address] [place] [address], [place] [phone] * Lipid panel with reflex to direct LDL (12/24/2024 6:50 AM EST) Cholesterol 139 0 - 200 mg/dL LAB CHEMISTRY METHOD 12/24/2024 8:27 AM [facility] LAB Triglycerides 130 0 - 150 mg/dL LAB CHEMISTRY METHOD 12/24/2024 8:27 AM [facility] LAB HDL 50 >=40 mg/dL LAB CHEMISTRY METHOD 12/24/2024 8:27 AM [facility] LAB LDL Calculated 63 0 - 100 mg/dL LAB CHEMISTRY METHOD 12/24/2024 8:27 AM [facility] LAB VLDL Cholesterol Josiah 26 mg/dL LAB CHEMISTRY METHOD 12/24/2024 8:27 AM EST [facility] LAB Non HDL Chol. (LDL+VLDL) 89 <145 mg/dL LAB CHEMISTRY METHOD 12/24/2024 8:27 AM EST [facility] LAB Chol/HDL Ratio 2.8 0.0 - 4.4 LAB CHEMISTRY METHOD 12/24/2024 8:27 AM EST [facility] LAB Blood Venous blood specimen / Unknown 12/24/2024 6:50 AM EST 12/24/2024 7:47 AM EST us Chai Carias MD LAB BLOOD ORDERABLES Final Resul t [facility] [address] [place] [address], documented in this encounter Visit Diagnoses Diagnosis Other hyperlipidemia Other specified hypothyroidism Vitamin D deficiency, unspecified documented in this encounter Additional Health Concerns Infection Onset Date Last Indicated Resolved Time Respiratory Rule-Out 07/29/2025 07/29/2025 025 10:21 AM EDT COVID-19 07/29/2025 07/29/2025 08/28/2025 7:04 PM EST documented as of this encounter Care Teams Residential Remodeling Subcontractor Relationship Specialty Start Date End Date Rosa Castro MD [address] [place] [phone] PCP - General 03/14/25 documented as of this encounter
== END 2025-10-16 11:40 | disposition home or self-care (01) ==
LOC: HO.US 11:39
PROVIDERS: Visit Provider Obstetrics & Gynecology
DX: R10.23 Pelvic and perineal pain bilateral (principal)
CPT/HCPCS: 76830; 76856

== ENCOUNTER → 2025-10-16 11:43 | Outpatient (BNV) | payer MEDICARE, SELFPAY | PROVIDERS: Visit Provider Radiology Diagnostic Radiology | DX: R10.20 Pelvic and perineal pain unspecified side (principal) | CPT/HCPCS: 76830; 76856 ==

== ENCOUNTER 2025-10-23 08:24 | Outpatient (AMB) | payer MEDICARE, SELFPAY ==
--- NOTE | 2025-10-23 08:25 | A.OFFVIS_ITS ---
Intake Visit Reasons: TV Ultrasound/ dexa follow up Allergies topiramate (From Topamax) Adverse Reaction (Intermediate, Verified 07/03/25 13:06) Unknown oxybutynin Adverse Reaction (Unknown, Verified 07/03/25 13:06) Unknown oxycodone Adverse Reaction (Unknown, Verified 07/03/25 13:06) Unknown tuberculin, purified protein deriva Adverse Reaction (Unknown, Verified 07/03/25 13:06) Unknown lithium Allergy (Severe, Uncoded 07/02/25 09:49) coma zyprexa Adverse Reaction (Unknown, Uncoded 07/02/25 09:49) Unknown HPI Comments Details: The patient is schedule a telehealth visit for follow-up regarding DEXA scan and pelvic ultrasound. The patient is doing well with no more vaginal pain 10/16/2025 pelvic ultrasound showed the following: Uterus: The uterus is normal in size, measuring approximately 6.0 x 2.7 x 4.1 cm. Myometrium demonstrates echotexture. There are calcifications in the myometrium which could be due to fibroids. No discrete fibroid is identified. Endometrium: The endometrial stripe measures 2 mm in thickness. Right ovary: The right ovary is not visualized. Left ovary: The left ovary is not visualized. Pelvic fluid: none. GC/CT were negative BV panel was positive for Gardnerella which was treated with metronidazole 500 mg p.o. b.i.d. for a week 07/23/2025 DEXA scan showed the following: The bone mineral density of the lumbar spine is 1.139 g/cm2, corresponding to a T-score of -0.2, and a Z-score of 0.3. This is indicative of normal bone mineral density. The bone mineral density of the left total hip is 0.916 g/cm2, corresponding to a T-score of -0.7, and a Z-score of -0.2. This is indicative of normal bone mineral density. The bone mineral density of the left femoral neck is 0.856 g/cm2, corresponding to a T-score of -1.3, and a Z-score of -0.5. This is indicative of osteopenia. FRACTURE RISK: The FRAX index suggests a risk of major osteoporotic fracture of 12.5%, and of hip fracture 1.2%. [facility] Medical History Tubular adenoma of colon Fibromyalgia Suicidal ideations CHRIS (obstructive sleep apnea) Diabetes Surgical History Hx of cholecystectomy Hx of appendectomy Hx of colonoscopy Social History Patient Tobacco Use Status: Former Tobacco user Tobacco use type: Cigarette Years Smoked: quit december 2021, started at age 16, 1PPD Review of Systems Const All systems reviewed & are unremarkable except as noted in HPI and below Reports as per HPI and Reports no additional complaints GI Reports no additional complaints Reports no additional complaints Telehealth Telehealth [facility] Location of provider rendering services: practice address Location of patient: address on file Patient Identification confirmed using: Name, : Yes Telehealth method: voice only Patient verbally consented to treatment: Yes Patient verbally consented to billing insurance company: Yes Patient informed of any privacy concerns related to visit: Yes Minutes spent on Phone/Video with Pt.: 5 Assessment & Plan Assessment & Plan (1) Vaginal pain: Comment: Resolved Code(s): R10.2 - Pelvic and perineal pain Category: Medical Plan: Discussed with the patient the GC/CT with positive BV treated with Flagyl. Negative ultrasound. Instructions given to patient to call in case symptoms recur (2) Osteopenia: Code(s): M85.80 - Other specified disorders of bone density and structure, unspecified site Category: Medical Plan: Discussed with the patient the DEXA results and FRAX risk. FRAX risk and T score showed no evidence of osteoporosis. Discussed with the patient all the options for osteoporosis prevention including lifestyle modifications including Ca+D supplements 1200 mg po qd/800 MIU, Weight bearing exercises and proteine supplements. The patient verbalized understanding and agreed plan will repeat DEXA in 2 years. I spent a total of 20 minutes reviewing the chart, talking to the patient via phone and documenting in the medical record. Coding Level of Care Code Tele Est Pt Level 3 (74704) Diagnoses Vaginal pain R10.2 Osteopenia M85.80
--- OUTSIDE RECORDS SUMMARY | 2025-10-23 08:29 | XMS_ITS | Encounter Summary ---
Author Organization [facility] Address [address] [place] [address] Care Team Providers Care Felt Hat Inspector And Packer Name Role Phone Rosa Castro MD Primary Care Provider [phone] Encounter Details Date Type Department Care Team (Late st Contact Info) Description 10/03/2025 Lab Requisition [facility] [address] [place] [address] Chai Carias MD [address] [place] [address] [address] [place] Gastro-esophageal reflux disease without esophagitis; Anemia, unspecified [...] Hold for add-ons. 10/03/2025 9:02 AM EST [facility] Comment:Auto resulted. Blood Venous blood specimen / Unknown 10/03/2025 7:02 AM EST 10/03/2025 7:54 AM EST us Chai Carias MD LAB BLOOD ORDERABLES Final Resul t Performing Organization Address City/[facility]/ZIP Co de Phone Number [facility] [address] [place] [address], [place] [phone] * (ABNORMAL) Iron and TIBC (10/03/2025 7:02 AM EST) Iron 31(L) 40 - 150 mcg/dL 10/03/2025 8:44 AM EST [facility] TIBC 337 250 - 450 mcg/dL 10/03/2025 8:44 AM EST [facility] Iron Saturation 9(L) 15 - 50 % 8:44 AM EST [facility] Blood Venous blood specimen / Unknown 10/03/2025 7:02 AM EST 10/03/2025 7:54 AM EST us Chai Carias MD LAB BLOOD ORDERABLES Final Resul t Performing Organization Address [facility] Co de Phone Number [facility] [address] [place] [address], [place] [phone] * Ferritin (10/03/2025 7:02 AM EST) Ferritin 28 7 - 271 ng/mL 10/03/2025 8:44 AM EST [facility] Blood Venous blood specimen / Unknown 10/03/2025 7:02 AM EST 10/03/2025 7:54 AM EST us Chai Carias MD LAB BLOOD ORDERABLES Final Resul t [facility] [address] [place] [address], [place] [phone] documented in this encounter Visit Diagnoses Diagnosis Gastro-esophageal reflux disease without esophagitis Anemia, unspecified documented in this encounter Care Teams Felt Hat Inspector And Packer Relationship Specialty Start Date End Date Rosa Castro MD [address] [place] [phone] PCP - General 03/14/25 documented as of this encounter
--- OUTSIDE RECORDS SUMMARY | 2025-10-23 08:29 | XMS_ITS | Encounter Summary ---
[facility] Address [address] [place] [address] Care Team Providers Care Clearance Rep Name Role Phone Rosa Castro MD Primary Care Provider [phone] Encounter Details Date Type Department Care Team (Late st Contact Info) Description 11/27/2024 Lab Requisition [facility] Lab [address] [place] [address] Chai Carias MD [address] [place] [address] [address] [place] Type 2 diabetes mellitus with unspecified complications [...] AM EST) WBC 8.6 4.8 - 10.8 K/[facility] LAB HEMETOLOGY METHOD 11/27/2024 8:11 AM EST [facility] RBC 3.70(L) 3.80 - 4.80 M/mcL LAB HEMETOLOGY METHOD 11/27/2024 8:11 AM [facility] LAB Hemoglobin 10.2(L) 11.5 - 16.0 g/dL LAB HEMETOLOGY METHOD 11/27/2024 8:11 AM [facility] LAB Hematocrit 31.8(L) 35.0 - 47.0 % LAB HEMETOLOGY METHOD 11/27/2024 8:11 AM [facility] LAB MCV 86.2 79.0 - 98.0 FL LAB HEMETOLOGY METHOD 11/27/2024 8:11 AM [facility] LAB MCH 27.6 27.0 - 32.0 pcg LAB HEMETOLOGY METHOD 11/27/2024 8:11 AM [facility] LAB MCHC 32.1 32.0 - 37.0 g/dL LAB HEMETOLOGY METHOD 11/27/2024 8:11 AM [facility] LAB RDW 16.3(H) 11.0 - 15.0 % LAB HEMETOLOGY METHOD 11/27/2024 8:11 AM [facility] LAB Platelets 206 130 - 400 K/mcL LAB HEMETOLOGY METHOD 11/27/2024 8:11 AM [facility] LAB MPV 9.9 7.0 - 11.0 FL LAB HEMETOLOGY METHOD 11/27/2024 8:11 AM [facility] LAB NRBC 0.0 <1.0 % LAB HEMETOLOGY METHOD 11/27/2024 8:11 AM [facility] LAB NRBC Absolute 0.00 <0.10 K/mcL LAB HEMETOLOGY METHOD 11/27/2024 8:11 AM [facility] LAB Blood Venous blood specimen / Unknown 11/27/2024 7:01 AM EST 11/27/2024 8:05 AM EST us Chai Carias MD LAB BLOOD ORDERABLES Final Resul t [facility] [address] [place] [address], [place] [phone] * Hemoglobin A1c (11/27/2024 7:01 AM EST) Pathologist [facility] Hemoglobin A1C 5.9 <6.5 % LAB CHEMISTRY METHOD 11/27/2024 2:05 PM EST [facility] LAB Mean Bld Glu Estim. 123 mg/dL LAB CHEMISTRY METHOD 11/27/2024 2:05 PM [facility] LAB Blood Venous blood specimen / Unknown 11/27/2024 7:01 AM EST 11/27/2024 8:05 AM EST us Chia Carias MD LAB BLOOD ORDERABLES Final Resul t Performing Organization Address [facility]/ZIP Co de Phone Number [facility] [address] [place] [address], [place] [phone] * (ABNORMAL) Comprehensive metabolic panel (11/27/2024 7:01 AM EST) [facility] Sodium 138 133 - 145 mmol/L LAB CHEMISTRY METHOD 11/27/2024 8:37 AM [facility] Potassium 4.2 3.5 - 5.5 mmol/L LAB CHEMISTRY METHOD 11/27/2024 8:37 AM [facility] LAB Chloride 105 96 - 110 mmol/L LAB CHEMISTRY METHOD 11/27/2024 8:37 AM [facility] LAB CO2 25 21 - 32 mmol/L LAB CHEMISTRY METHOD 11/27/2024 8:37 AM [facility] LAB Anion Gap 8 3 - 11 LAB CHEMISTRY METHOD 11/27/2024 8:37 AM [facility] LAB Glucose 86 70 - 100 mg/dL LAB CHEMISTRY METHOD 11/27/2024 8:37 AM [facility] LAB BUN 16 5 - 25 mg/dL LAB CHEMISTRY METHOD 11/27/2024 8:37 AM [facility] LAB Creatinine 0.76 0.50 - 1.10 mg/dL LAB CHEMISTRY METHOD 11/27/2024 8:37 AM [facility] LAB eGFR 86 >=60 mL/min/1. 73m2 LAB CHEMISTRY METHOD 11/27/2024 8:37 AM [facility] LAB Comment:Calculation based on the Chronic Kidney Disease Epidemiology Collaboration (CKD-EPI) equation refit without adjustment for race. BUN/Creatinine Ratio 21.1 LAB CHEMISTRY METHOD 11/27/2024 8:37 AM [facility] LAB Calcium 8.8 8.5 - 10.5 mg/dL LAB CHEMISTRY METHOD 11/27/2024 8:37 AM [facility] LAB AST (SGOT) 31 10 - 42 unit/L LAB CHEMISTRY METHOD 11/27/2024 8:37 AM [facility] LAB ALT (SGPT) 23 10 - 60 unit/L LAB CHEMISTRY METHOD 11/27/2024 8:37 AM [facility] LAB Alkaline Phosphatase 128(H) 42 - 121 unit/L LAB CHEMISTRY METHOD 11/27/2024 8:37 AM [facility] LAB Total Protein 6.8 6.0 - 8.0 g/dL LAB CHEMISTRY METHOD 11/27/2024 8:37 AM [facility] LAB Albumin 3.0(L) 3.2 - 5.0 g/dL LAB CHEMISTRY METHOD 11/27/2024 8:37 AM [facility] LAB Total Bilirubin 0.4 0.0 - 1.4 mg/dL LAB CHEMISTRY METHOD 11/27/2024 8:37 AM [facility] LAB Blood Venous blood specimen / Unknown 11/27/2024 7:01 AM EST 11/27/2024 8:05 AM EST us Chai Carias MD LAB BLOOD ORDERABLES Final Resul t [facility] [address] [place] [address], documented in this encounter Visit Diagnoses Diagnosis Type 2 diabetes mellitus with unspecified complications (CMS/HCC V24, CMS/HCC V28) documented in this encounter Additional Health Concerns Infection Onset Date Last Indicated Resolved Time Respiratory Rule-Out 07/29/2025 07/29/2025 025 10:21 AM EDT COVID-19 07/29/2025 07/29/2025 08/28/2025 7:04 PM EST documented as of this encounter Care Teams Clearance Rep Relationship Specialty Start Date End Date Rosa Castro MD [address] [place] [phone] PCP - General 03/14/25 documented as of this encounter
--- OUTSIDE RECORDS SUMMARY | 2025-10-23 08:29 | XMS_ITS | Encounter Summary ---
[facility] Organization [facility] Address [address] [place] [address] Care Team Providers Care Embroidery Designer Name Role Phone Rosa Castro MD Primary Care Provider [phone] Encounter Details Date Type Department Care Team (Late st Contact Info) Description 10/30/2024 Lab Requisition [facility] Lab [address] [place] [address] Chai Carias MD [address] [place] [address] [address] [place] Mixed incontinence Social History Tobacco Use Types [...] reflex microscopic (10/30/2024 12:45 PM EST) Specific [place] Urine 1.012 1.003 - 1.030 LAB URINALYSIS - AUTOMATED METHOD 10/30/2024 5:14 PM EST [facility] LAB pH, Urine 6.0 5.0 - 8.0 pH LAB URINALYSIS - AUTOMATED METHOD 10/30/2024 5:14 PM EST [facility] Leukocytes, Urine Moderate(A) Negative LAB URINALYSIS - AUTOMATED METHOD 10/30/2024 5:14 PM [facility] Nitrite, Urine Positive(A) Negative LAB URINALYSIS - AUTOMATED METHOD 10/30/2024 5:14 PM [facility] Protein, Urine Negative <=Trace mg/dL LAB URINALYSIS - AUTOMATED METHOD 10/30/2024 5:14 PM [facility] Glucose, Urine Negative Negative mg/dL LAB URINALYSIS - AUTOMATED METHOD 10/30/2024 5:14 PM [facility] Ketones, Urine Negative Negative mg/dL LAB URINALYSIS - AUTOMATED METHOD 10/30/2024 5:14 PM [facility] Urobilinogen , Urine 1.0 0.2 - 1.0 mg/dL LAB URINALYSIS - AUTOMATED METHOD 10/30/2024 5:14 PM [facility] Bilirubin, Urine Negative Negative LAB URINALYSIS - AUTOMATED METHOD 10/30/2024 5:14 PM [facility] Blood, Urine Negative Negative LAB URINALYSIS - AUTOMATED METHOD 10/30/2024 5:14 PM [facility] RBC, Urine 4.0 0 - 4 /HPF LAB URINALYSIS - AUTOMATED METHOD 10/30/2024 5:14 PM [facility] WBC, Urine 52.6(H) 0 - 4 /HPF LAB URINALYSIS - AUTOMATED METHOD 10/30/2024 5:14 PM [facility] Squamous Epithelial, Urine 29 0 - 60 /LPF LAB URINALYSIS - AUTOMATED METHOD 10/30/2024 5:14 PM [facility] Bacteria, Urine Many(A) Negative /HPF LAB URINALYSIS - AUTOMATED METHOD 10/30/2024 5:14 PM [facility] Hyaline Casts, Urine 0.4 0 - 3 /LPF LAB URINALYSIS - AUTOMATED METHOD 10/30/2024 5:14 PM EST [facility] Urine Urine specimen obtained by clean catch procedure / Unknown Non-blood Collection / Unknown 10/30/2024 12:45 PM EST 10/30/2024 2:55 PM EST us Chai Carias MD LAB URINE ORDERABLES Final Resul t [facility] [address] [place] [address], * (ABNORMAL) Culture urine (10/30/2024 12:45 PM EST) Culture, Urine >100,000 CFU/mL Escherichia coli(A) NADER 11/01/2024 11:05 AM EST [facility] Urine Urine specimen obtained by clean catch procedure / Unknown Non-blood Collection / Unknown 10/30/2024 12:45 PM EST 10/30/2024 3:14 PM EST Narrative [facility] - 11/01/2024 11:05 AM EST Additional [...] MICROBIOLOGY - GENERAL ORDER CHANTELLE Final Result [facility] [address] [place] [address], documented in this encounter Visit Diagnoses Diagnosis Mixed incontinence Mixed incontinence urge and stress (male)(female) documented in this encounter Additional Health Concerns Infection Onset Date Last Indicated Resolved Time Respiratory Rule-Out 07/29/2025 07/29/2025 025 10:21 AM EDT COVID-19 07/29/2025 07/29/2025 08/28/2025 7:04 PM EST documented as of this encounter Care Teams Embroidery Designer Relationship Specialty Start Date End Date Rosa Castro MD [address] [place] [phone] PCP - General 03/14/25 documented as of this encounter
--- OUTSIDE RECORDS SUMMARY | 2025-10-23 08:29 | XMS_ITS | Encounter Summary ---
[facility] Address [address] [place] [address] Care Team Providers Care Bench Mechanic Name Role Phone Rosa Castro MD Primary Care Provider [phone] Encounter Details Date Type Department Care Team (Late st Contact Info) Description 01/10/2025 Lab Requisition [facility] Lab [address] [place] [address] Chai Carias MD [address] [place] [address] [address] [place] Dysuria Social History Tobacco Use Types Packs/Day [...] reflex microscopic (01/09/2025 7:00 PM EDT) Specific [place] Urine 1.021 1.003 - 1.030 LAB URINALYSIS - AUTOMATED METHOD 01/10/2025 8:20 AM EDT [facility] pH, Urine 5.5 5.0 - 8.0 pH LAB URINALYSIS - AUTOMATED METHOD [facility] Leukocytes, Urine Large(A) Negative LAB URINALYSIS - AUTOMATED METHOD 01/10/2025 8:20 AM [facility] Nitrite, Urine Positive(A) Negative LAB URINALYSIS - AUTOMATED METHOD 01/10/2025 8:20 AM [facility] Protein, Urine Trace <=Trace mg/dL LAB URINALYSIS - AUTOMATED METHOD 01/10/2025 8:20 AM [facility] Glucose, Urine Negative Negative mg/dL LAB URINALYSIS - AUTOMATED METHOD 01/10/2025 8:20 AM [facility] Ketones, Urine Negative Negative mg/dL LAB URINALYSIS - AUTOMATED METHOD 01/10/2025 8:20 AM [facility] Urobilinogen , Urine 1.0 0.2 - 1.0 mg/dL LAB URINALYSIS - AUTOMATED METHOD 01/10/2025 8:20 AM [facility] Bilirubin, Urine Negative Negative LAB URINALYSIS - AUTOMATED METHOD 01/10/2025 8:20 AM [facility] Blood, Urine Negative Negative LAB URINALYSIS - AUTOMATED METHOD 01/10/2025 8:20 AM [facility] RBC, Urine 1.0 0 - 4 /HPF LAB URINALYSIS - AUTOMATED METHOD 01/10/2025 8:20 AM [facility] WBC, Urine 90.1(H) 0 - 4 /HPF LAB URINALYSIS - AUTOMATED METHOD 01/10/2025 8:20 AM [facility] Squamous Epithelial, Urine 62(H) 0 - 60 /LPF LAB URINALYSIS - AUTOMATED METHOD 01/10/2025 8:20 AM [facility] Crystals, Urine LT CALCIUM OXALATE /LPF LAB URINALYSIS - AUTOMATED METHOD 01/10/2025 8:20 AM [facility] Bacteria, Urine Many(A) Negative [...] ORDERABLES Final Resul t Performing Organization Address [facility]/ZIP Co de Phone Number [facility] [address] [place] [address], [place] [phone] * Culture urine (01/09/2025 7:00 PM EDT) [...] ORDER CHANTELLE Final Result Performing Organization Address City/[facility]/ZIP Co de Phone Number [facility] [address] [place] [address], [place] [phone] documented in this encounter Visit Diagnoses Diagnosis Dysuria documented in this encounter Additional Health Concerns Infection Onset Date Last Indicated Resolved Time Respiratory Rule-Out 07/29/2025 07/29/2025 025 10:21 AM EDT COVID-19 07/29/2025 07/29/2025 08/28/2025 7:04 PM EST documented as of this encounter Care Teams Bench Mechanic Relationship Specialty Start Date End Date Rosa Castro MD [address] [place] [phone] PCP - General 03/14/25 documented as of this encounter
--- OUTSIDE RECORDS SUMMARY | 2025-10-23 08:29 | XMS_ITS | Encounter Summary ---
Author Organization [facility] Address [address] [place] [address] Care Team Providers Care Activity Coordinator Name Role Phone Rosa Castro MD Primary Care Provider [phone] Encounter Details Date Type Department Care Team (Late st Contact Info) Description 01/04/2025 Lab Requisition [facility] - Main Lab 299 [facility] [employer] [place] [address] Chai Carias MD [address] [place] [address] Dr [address] [place] Personal history of pulmonary embolism Social History [...] LAB COAGULATION METHOD 01/04/2025 6:23 PM EDT [facility] Blood Venous blood specimen / Unknown 01/04/2025 5:15 PM EDT 01/04/2025 6:09 PM EDT Narrative [facility] - 01/04/2025 6:23 PM EDT D-Dimer <230 ng/mL (D-Dimer units) is the threshold for exclusion of DVT/PE. D-Dimer may be elevated in: Critically ill, severely infected, trauma patients, DIC, acute CVA, acute [place], unstable angina, AF, old age, , and smoking. D-Dimer may be decreased with: Initiation of heparin therapy and oral anticoagulants. Chai Carias MD LAB BLOOD ORDERABLES Final Resul t [facility] ([facility]) [facility] [address] [place] [address], documented in this encounter Visit Diagnoses Diagnosis Personal history of pulmonary embolism documented in this encounter Additional Health Concerns Infection Onset Date Last Indicated Resolved Time Respiratory Rule-Out 07/29/2025 07/29/2025 025 10:21 AM EDT COVID-19 07/29/2025 07/29/2025 08/28/2025 7:04 PM EST documented as of this encounter Care Teams Activity Coordinator Relationship Specialty Start Date End Date Rosa Castro MD [address] [place] [phone] PCP - General 03/14/25 documented as of this encounter
--- OUTSIDE RECORDS SUMMARY | 2025-10-23 08:29 | XMS_ITS | Clinical Summary ---
Author Organization 299 [facility] Address [address] [place] [address] Phone Care Team Providers Care Land Conservation Specialist Name Role Phone Rosa Castro MD Primary Care Provider [phone] Encounters Date Type Department Care Team Description 10/03/2025 Lab Requisition [facility] [address] [place] [phone] Chai Carias MD Gastro-esophageal reflux disease without esophagitis; Anemia, unspecified 09/30/2025 Lab Requisition [facility] [address] [place] [phone] Chai Carias MD Gastro-esophageal reflux disease without esophagitis; Anemia, unspecified 09/05/2025 Lab Requisition [facility] [address] [place] [phone] Chai Carias MD Type 2 diabetes mellitus without complications (CMS/HCC V24, CMS/HCC V28); Morbid (severe) obesity due to excess calories (CMS/HCC V24, CMS/[facility] V28) 07/29/2025 Lab Requisition [facility] [address] [place] [phone] Chai Carias MD Cough, unspecified; Nasal congestion; [...] to excess calories (CMS/HCC V24, CMS/HCC V28) [id number], RSV, FLU A AND B QUALITATIVE RT-PCR, [...] Hold for add-ons. 10/03/2025 9:02 AM EST [facility] Comment:Auto resulted. Blood Venous blood specimen / Unknown 10/03/2025 7:02 AM EST 10/03/2025 7:54 AM EST us Chai Carias MD LAB BLOOD ORDERABLES Final Resul t Performing Organization Address [facility]/ZIP Co de Phone Number [facility] [address] [place] [address], [place] [phone] * (ABNORMAL) Iron and TIBC (10/03/2025 7:02 AM EST) Pathologist [facility] Iron 31(L) 40 - 150 mcg/dL 10/03/2025 8:44 AM EST [facility] TIBC 337 250 - 450 mcg/dL 10/03/2025 8:44 AM EST [facility] Iron Saturation 9(L) 15 - 50 % 8:44 AM EST [facility] Blood Venous blood specimen / Unknown 10/03/2025 7:02 AM EST 10/03/2025 7:54 AM EST us Chai Carias MD LAB BLOOD ORDERABLES Final Resul t [facility] [address] [place] [address], [place] [phone] * Ferritin (10/03/2025 7:02 AM EST) Pathologist [facility] Ferritin 28 7 - 271 ng/mL 10/03/2025 8:44 AM EST [facility] Blood Venous blood specimen / Unknown 10/03/2025 7:02 AM EST 10/03/2025 7:54 AM EST us Chai Carias MD LAB BLOOD ORDERABLES Final Resul t [facility] [address] [place] [address], [place] [phone] * Lavender tube (09/05/2025 6:36 AM EST) [facility] Extra Tube Hold for add-ons. 09/05/2025 9:01 AM EST [facility] Comment:Auto resulted. Blood Venous blood specimen / Unknown 09/05/2025 6:36 AM EST 09/05/2025 7:54 AM EST us Chai Carias MD LAB BLOOD ORDERABLES Final Resul t Performing Organization Address City/[facility]/ZIP Co de Phone Number [facility] [address] [place] [address], [place] [phone] * (ABNORMAL) Complete blood count (09/05/2025 6:36 AM EST) [facility] WBC 9.4 4.8 - 10.8 K/mcL LAB HEMETOLOGY METHOD 09/05/2025 8:02 AM [facility] RBC 3.60(L) 3.80 - 4.80 M/[facility] LAB HEMETOLOGY METHOD 09/05/2025 8:02 AM [facility] Hemoglobin 9.7(L) 11.5 - 16.0 g/dL LAB HEMETOLOGY METHOD 09/05/2025 8:02 AM [facility] Hematocrit 29.9(L) 35.0 - 47.0 % LAB HEMETOLOGY METHOD 09/05/2025 8:02 AM [facility] MCV 83.1 79.0 - 98.0 FL LAB HEMETOLOGY METHOD 09/05/2025 8:02 AM EST [facility] MCH 26.9(L) 27.0 - 32.0 pcg LAB HEMETOLOGY METHOD 09/05/2025 8:02 AM EST [facility] MCHC 32.4 32.0 - 37.0 g/dL LAB HEMETOLOGY METHOD 09/05/2025 8:02 AM [facility] RDW 17.7(H) 11.0 - 15.0 % LAB HEMETOLOGY METHOD 09/05/2025 8:02 AM EST [facility] Platelets 218 130 - 400 K/mcL LAB HEMETOLOGY METHOD 09/05/2025 8:02 AM [facility] MPV 9.8 7.0 - 11.0 FL LAB HEMETOLOGY METHOD 09/05/2025 8:02 AM [facility] NRBC 0.0 <1.0 % LAB HEMETOLOGY METHOD 09/05/2025 8:02 AM [facility] NRBC Absolute 0.00 <0.10 K/mcL LAB HEMETOLOGY METHOD 09/05/2025 8:02 AM [facility] Blood Venous blood specimen / Unknown 09/05/2025 6:36 AM EST 09/05/2025 7:53 AM EST us Chai Carias MD LAB BLOOD ORDERABLES Final Resul t [facility] [address] [place] [address], * Hemoglobin A1c (09/05/2025 6:36 AM EST) Hemoglobin A1C 5.4 <6.5 % LAB CHEMISTRY METHOD 09/05/2025 9:50 AM EST [facility] Mean Bld Glu Estim. 108 mg/dL LAB CHEMISTRY METHOD 09/05/2025 9:50 AM [facility] Blood Venous blood specimen / Unknown 09/05/2025 6:36 AM EST 09/05/2025 7:53 AM EST Chai Carias MD LAB BLOOD ORDERABLES Final Resul t [facility] [address] [place] [address], [place] [phone] * (ABNORMAL) Comprehensive metabolic panel (09/05/2025 6:36 AM EST) Sodium 137 133 - 145 mmol/L LAB CHEMISTRY METHOD 09/05/2025 8:33 AM [facility] Potassium 4.6 3.5 - 5.5 mmol/L LAB CHEMISTRY METHOD 09/05/2025 8:33 AM [facility] Chloride 103 96 - 110 mmol/L LAB CHEMISTRY METHOD 09/05/2025 8:33 AM [facility] CO2 27 21 - 32 mmol/L LAB CHEMISTRY METHOD 09/05/2025 8:33 AM [facility] Anion Gap 7 3 - 11 LAB CHEMISTRY METHOD 09/05/2025 8:33 AM [facility] Glucose 97 70 - 100 mg/dL LAB CHEMISTRY METHOD 09/05/2025 8:33 AM [facility] BUN 18 5 - 25 mg/dL LAB CHEMISTRY METHOD 09/05/2025 8:33 AM [facility] Creatinine 0.71 0.50 - 1.10 mg/dL LAB CHEMISTRY METHOD 09/05/2025 8:33 AM [facility] eGFR 93 >=60 mL/min/1. 73m2 LAB CHEMISTRY METHOD 09/05/2025 8:33 AM [facility] Comment:Calculation based on the Chronic Kidney Disease Epidemiology Collaboration (CKD-EPI) equation refit without adjustment for race. BUN/Creatinine Ratio 25.4 LAB CHEMISTRY METHOD 09/05/2025 8:33 AM [facility] Calcium 9.2 8.5 - 10.5 mg/dL LAB CHEMISTRY METHOD 09/05/2025 8:33 AM [facility] AST (SGOT) 20 10 - 42 unit/L LAB CHEMISTRY METHOD 09/05/2025 8:33 AM [facility] ALT (SGPT) 27 10 - 60 unit/L LAB CHEMISTRY METHOD 09/05/2025 8:33 AM [facility] Alkaline Phosphatase 117 42 - 121 unit/L LAB CHEMISTRY METHOD 09/05/2025 8:33 AM [facility] Total Protein 6.7 6.0 - 8.0 g/dL LAB CHEMISTRY METHOD 09/05/2025 8:33 AM [facility] Albumin 3.1(L) 3.2 - 5.0 g/dL LAB CHEMISTRY METHOD 09/05/2025 8:33 AM [facility] Total Bilirubin 0.3 0.0 - 1.4 mg/dL LAB CHEMISTRY METHOD 09/05/2025 8:33 AM [facility] Blood Venous blood specimen / Unknown 09/05/2025 6:36 AM EST 09/05/2025 7:53 AM EST us Chai Carias MD LAB BLOOD ORDERABLES Final Resul t [facility] [address] [place] [address], * (ABNORMAL) [id number], RSV, Influenza A and B qualitative RT-PCR (07/29/2025 9:43 AM EDT) SARS COV-2 Detected(A ) Not Detected LAB MOLECULAR DIAGNOSTICS METHOD 07/30/2025 10:21 AM EDT [facility] Comment: Disclaimer: The manner in which this information is used to guide patient care is the responsibility of the healthcare provider. Testing was performed using the Syndiant SARS-CoV-2 test. This test has been authorized [...] for Healthcare Providers can be found at: https://www.fda.gov/media/363387/download Fact sheet for Patients can be found at: https://www.fda.gov/media/971866/download Influenza A PCR Not Detected Not Detected LAB MOLECULAR DIAGNOSTICS METHOD 07/30/2025 10:21 AM EDT [facility] Influenza B PCR Not Detected Not Detected LAB MOLECULAR DIAGNOSTICS METHOD 07/30/2025 10:21 AM EDT [facility] RSV PCR Not Detected Not Detected LAB MOLECULAR DIAGNOSTICS METHOD 07/30/2025 10:21 AM EDT [facility] Swab Nasopharyngeal structure / Unknown 07/29/2025 9:43 AM EDT 07/29/2025 12:26 PM EDT Chai Carias MD LAB MICROBIOLOGY - GENERAL ORDER [place]ANTELLE Final Result [facility] [address] [place] [address], * Lipid panel with reflex to direct LDL (07/01/2025 6:50 AM EDT) Cholesterol 118 0 - 200 mg/dL LAB CHEMISTRY METHOD 07/01/2025 8:51 AM EDT [facility] Triglycerides 131 0 - 150 mg/dL LAB CHEMISTRY METHOD 07/01/2025 8:51 AM EDT [facility] HDL 56 >=40 mg/dL LAB CHEMISTRY METHOD 07/01/2025 8:51 AM EDT [facility] LDL Calculated 36 0 - 100 mg/dL LAB CHEMISTRY METHOD 07/01/2025 8:51 AM EDT [facility] Comment:Estimated LDL Calcul ated using equation: Total cholesterol - HDL cholesterol - (Triglycerides/5) VLDL Cholesterol Josiah 26.2 mg/dL LAB CHEMISTRY METHOD 07/01/2025 8:51 AM EDT [facility] Non HDL Chol. (LDL+VLDL) 62 <145 mg/dL LAB CHEMISTRY METHOD 07/01/2025 8:51 AM EDT [facility] Chol/HDL Ratio 2.1 0.0 - 4.4 LAB CHEMISTRY METHOD 07/01/2025 8:51 AM T [facility] Blood Venous blood specimen / Unknown 07/01/2025 6:50 AM EDT 07/01/2025 8:18 AM EDT us Chai Carisa MD LAB BLOOD ORDERABLES Final Resul t [facility] [address] [place] [address], from Last 3 Months or Most Recently Relevant to Health Maintenance Insurance MEDICARE [employer] MEDICARE Care Teams Land Conservation Specialist Relationship Specialty Start Date End Date Rosa Castro MD [address] [place] [phone] PCP - General 03/14/25
--- OUTSIDE RECORDS SUMMARY | 2025-10-23 08:29 | XMS_ITS | Encounter Summary ---
Author Organization [facility] Address [address] [place] [address] Care Team Providers Care Home Energy Consultant Supervisor Name Role Phone Rosa Castro MD Primary Care Provider [phone] Encounter Details Date Type Department Care Team (Late st Contact Info) Description 12/24/2024 Lab Requisition [facility] Lab [address] [place] [address] Chai Carias MD [address] [place] [address] Dr [address] [place] Other hyperlipidemia; Other specified hypothyroidism; Vitamin D [...] LAB CHEMISTRY METHOD 12/24/2024 8:37 AM EST [facility] ([facility] Blood Venous blood specimen / Unknown 12/24/2024 6:50 AM EST 12/24/2024 7:47 AM EST us Chai Carias MD LAB BLOOD ORDERABLES Final Resul t Performing Organization Address [facility]/ZIP Co de Phone Number [facility] [address] [place] [address], [place] [phone] * Thyroid stimulating hormone (12/24/2024 6:50 AM EST) TSH 2.16 0.40 - 4.00 mcIU/mL LAB CHEMISTRY METHOD 12/24/2024 8:37 AM EST [facility] Blood Venous blood specimen / Unknown 12/24/2024 6:50 AM EST 12/24/2024 7:47 AM EST us Chai Carias MD LAB BLOOD ORDERABLES Final Resul t Performing Organization Address City/[facility]/ZIP Co de Phone Number [facility] [address] [place] [address], [place] [phone] * Lipid panel with reflex to direct LDL (12/24/2024 6:50 AM EST) Cholesterol 139 0 - 200 mg/dL LAB CHEMISTRY METHOD 12/24/2024 8:27 AM [facility] Triglycerides 130 0 - 150 mg/dL LAB CHEMISTRY METHOD 12/24/2024 8:27 AM [facility] HDL 50 >=40 mg/dL LAB CHEMISTRY METHOD 12/24/2024 8:27 AM [facility] LDL Calculated 63 0 - 100 mg/dL LAB CHEMISTRY METHOD 12/24/2024 8:27 AM [facility] VLDL Cholesterol Josiah 26 mg/dL [...] Resul t [facility] [address] [place] [address], documented in this encounter Visit Diagnoses Diagnosis Other hyperlipidemia Other specified hypothyroidism Vitamin D deficiency, unspecified documented in this encounter Additional Health Concerns Infection Onset Date Last Indicated Resolved Time Respiratory Rule-Out 07/29/2025 07/29/2025 025 10:21 AM EDT COVID-19 07/29/2025 07/29/2025 08/28/2025 7:04 PM EST documented as of this encounter Care Teams Home Energy Consultant Supervisor Relationship Specialty Start Date End Date Rosa Castro MD [address] [place] [phone] PCP - General 03/14/25 documented as of this encounter
--- OUTSIDE RECORDS SUMMARY | 2025-10-23 08:29 | XMS_ITS | Encounter Summary ---
Author Organization [facility] Address [address] [place] [address] Care Team Providers Care Natural Gas Engineer Name Role Phone Rosa Castro MD Primary Care Provider [phone] Encounter Details Date Type Department Care Team (Late st Contact Info) Description 01/16/2025 Lab Requisition [facility] - Main Lab 299 [facility] [place] [address] Chai Carias MD [address] [place] [address] [address] [place] Unspecified external cause status Social History Tobacco [...] documented as of this encounter Care Teams Natural Gas Engineer Relationship Specialty Start Date End Date Rosa Castro MD [address] [place] [address] [place] [phone] PCP - General 03/14/25 documented as of this encounter
--- OUTSIDE RECORDS SUMMARY | 2025-10-23 08:29 | XMS_ITS | Encounter Summary ---
Author Organization [facility] Address [address] [place] [address] Care Team Providers Care Presales Engineer Name Role Phone Rosa Castro MD Primary Care Provider Encounter Details Date Type Department Care Team (Late st Contact Info) Description 06/03/2025 Lab Requisition [facility] - Main Lab 299 [facility] [place] [address] Chai Carias MD [address] [place] [address] [address] [place] Morbid (severe) obesity due to excess calories [...] V28) Type 2 diabetes mellitus without complications ([facility] V24, [facility] V28) COMPREHENSIVE METABOLIC PANEL Routine 06/03/2025 7:04 AM EDT Morbid (severe) obesity due to excess calories ([facility] V24, [facility] V28) Type 2 diabetes mellitus without complications ([facility] V24, [facility] V28) documented in this encounter Results * Lavender tube (06/03/2025 7:04 AM EDT) [facility] Extra Tube Hold for add-ons. 06/03/2025 9:01 AM EDT [facility] Comment:Auto resulted. Blood Venous blood specimen / Unknown 06/03/2025 7:04 AM EDT 06/03/2025 7:41 AM EDT us Chai Carias MD LAB BLOOD ORDERABLES Final Resul t Performing Organization Address [facility]/ZIP Co de Phone Number [facility] [address] [place] [address], [place] [phone] * Hemoglobin A1c (06/03/2025 7:04 AM EDT) [facility] Hemoglobin A1C 5.6 <6.5 % LAB CHEMISTRY METHOD 06/03/2025 11:23 AM EDT [facility] Mean Bld Glu Estim. 114 mg/dL LAB CHEMISTRY METHOD 06/03/2025 11:23 AM EDT [facility] Blood Venous blood specimen / Unknown 06/03/2025 7:04 AM EDT 06/03/2025 7:41 AM EDT us Chai Carias MD LAB BLOOD ORDERABLES Final Resul t Performing Organization Address City/[facility]/ZIP Co de Phone Number [facility] [address] [place] [address], [place] [phone] * (ABNORMAL) Comprehensive metabolic panel (06/03/2025 7:04 AM EDT) Sodium 138 133 - 145 mmol/L LAB CHEMISTRY METHOD 06/03/2025 8:19 AM [facility] Potassium 4.3 3.5 - 5.5 mmol/L LAB CHEMISTRY METHOD 06/03/2025 8:19 AM [facility] Chloride 102 96 - 110 mmol/L LAB CHEMISTRY METHOD 06/03/2025 8:19 AM [facility] CO2 27 21 - 32 mmol/L LAB CHEMISTRY METHOD 06/03/2025 8:19 AM [facility] Anion Gap 9 3 - 11 LAB CHEMISTRY METHOD 06/03/2025 8:19 AM [facility] Glucose 97 70 - 100 mg/dL LAB CHEMISTRY METHOD 06/03/2025 8:19 AM [facility] BUN 16 5 - 25 mg/dL LAB CHEMISTRY METHOD 06/03/2025 8:19 AM [facility] Creatinine 0.82 0.50 - 1.10 mg/dL LAB CHEMISTRY METHOD 06/03/2025 8:19 AM [facility] eGFR 79 >=60 mL/min/1. 73m2 LAB CHEMISTRY METHOD 06/03/2025 8:19 AM [facility] Comment:Calculation based on the Chronic Kidney Disease Epidemiology Collaboration (CKD-EPI) equation refit without adjustment for race. BUN/Creatinine Ratio 19.5 LAB CHEMISTRY METHOD 06/03/2025 8:19 AM [facility] Calcium 9.6 8.5 - 10.5 mg/dL LAB CHEMISTRY METHOD 06/03/2025 8:19 AM [facility] AST (SGOT) 21 10 - 42 unit/L LAB CHEMISTRY METHOD 06/03/2025 8:19 AM [facility] ALT (SGPT) 19 10 - 60 unit/L LAB CHEMISTRY METHOD 06/03/2025 8:19 AM EDT [facility] Alkaline Phosphatase 130(H) 42 - 121 unit/L LAB CHEMISTRY METHOD 06/03/2025 8:19 AM EDT [facility] Total Protein 7.0 6.0 - 8.0 g/dL LAB CHEMISTRY METHOD 06/03/2025 8[facility] Albumin 3.3 3.2 - 5.0 g/dL LAB CHEMISTRY METHOD 06/03/2025 8:19 AM EDT [facility] Total Bilirubin 0.3 0.0 - 1.4 mg/dL LAB CHEMISTRY METHOD 06/03/2025 8:19 AM [facility] Blood Venous blood specimen / Unknown 06/03/2025 7:04 AM EDT 06/03/2025 7:41 AM EDT us Chai Carias MD LAB BLOOD ORDERABLES Final Resul t [facility] [address] [place] [address], [place] [phone] * (ABNORMAL) Complete blood count (06/03/2025 7:04 AM EDT) WBC 8.4 4.8 - 10.8 K/mcL LAB HEMETOLOGY METHOD 06/03/2025 8:10 AM T [facility] RBC 3.70(L) 3.80 - 4.80 M/mcL LAB HEMETOLOGY METHOD 06/03/2025 8:10 AM [facility] Hemoglobin 9.6(L) 11.5 - 16.0 g/dL LAB HEMETOLOGY METHOD 06/03/2025 8:10 AM [facility] Hematocrit 31.9(L) 35.0 - 47.0 % LAB HEMETOLOGY METHOD 06/03/2025 8:10 AM EDT [facility] MCV 86.0 79.0 - 98.0 FL LAB HEMETOLOGY METHOD 06/03/2025 8:10 AM EDT [facility] MCH 25.9(L) 27.0 - 32.0 pcg LAB HEMETOLOGY METHOD 06/03/2025 8:10 AM EDT [facility] MCHC 30.1(L) 32.0 - 37.0 g/dL LAB HEMETOLOGY METHOD 06/03/2025 8:10 AM EDT [facility] RDW 17.9(H) 11.0 - 15.0 % LAB HEMETOLOGY METHOD 06/03/2025 8:10 AM EDT [facility] Platelets 206 130 - 400 K/mcL LAB HEMETOLOGY METHOD 06/03/2025 8:10 AM EDT [facility] MPV 10.4 7.0 - 11.0 FL LAB HEMETOLOGY METHOD 06/03/2025 8:10 AM EDT [facility] NRBC 0.0 <1.0 % LAB HEMETOLOGY METHOD 06/03/2025 8:10 AM EDT [facility] NRBC Absolute 0.00 <0.10 K/mcL LAB HEMETOLOGY METHOD 06/03/2025 8:10 AM T [facility] Blood Venous blood specimen / Unknown 06/03/2025 7:04 AM EDT 06/03/2025 7:41 AM EDT us Chai Carias MD LAB BLOOD ORDERABLES Final Resul t [facility] [address] [place] [address], documented in this encounter Visit Diagnoses Diagnosis [...] documented as of this encounter Care Teams Presales Engineer Relationship Specialty Start Date End Date Rosa Castro MD [address] [place] [phone] PCP - General 03/14/25 documented as of this encounter
--- OUTSIDE RECORDS SUMMARY | 2025-10-23 08:30 | XMS_ITS | Encounter Summary ---
Author Organization [facility] Address [address] [place] [address] Care Team Providers Care Warehouse Technician Name Role Phone Rosa Castro MD Primary Care Provider [phone] Encounter Details Date Type Department Care Team (Late st Contact Info) Description 09/05/2025 Lab Requisition [facility] - Main Lab 299 [facility] [place] [address] Chai Carias MD [address] [place] [address] [address] [place] Type 2 diabetes mellitus without complications (CMS/HCC [...] Morbid (severe) obesity due to excess calories (CMS/[facility] V24, [facility] V28) COMPREHENSIVE METABOLIC PANEL Routine 09/05/2025 6:36 AM EST Type 2 diabetes mellitus without complications ([facility] V24, [facility] V28) Morbid (severe) obesity due to excess calories ([facility] V24, [facility] V28) documented in this encounter Results * Lavender tube (09/05/2025 6:36 AM EST) [facility] Extra Tube Hold for add-ons. 09/05/2025 9:01 AM EST [facility] Comment:Auto resulted. Blood Venous blood specimen / Unknown 09/05/2025 6:36 AM EST 09/05/2025 7:54 AM EST us Chai Carias MD LAB BLOOD ORDERABLES Final Resul t Performing Organization Address City/[facility]/ZIP Co de Phone Number [facility] [address] [place] [address], [place] [phone] * Hemoglobin A1c (09/05/2025 6:36 AM EST) [facility] Hemoglobin A1C 5.4 <6.5 % LAB CHEMISTRY METHOD 09/05/2025 9:50 AM EST [facility] Mean Bld Glu Estim. 108 mg/dL LAB CHEMISTRY METHOD 09/05/2025 9:50 AM EST [facility] Blood Venous blood specimen / Unknown 09/05/2025 6:36 AM EST 09/05/2025 7:53 AM EST us Chai Carias MD LAB BLOOD ORDERABLES Final Resul t [facility] [address] [place] [address], [place] [phone] * (ABNORMAL) Complete blood count (09/05/2025 6:36 AM EST) [facility] WBC 9.4 4.8 - 10.8 K/mcL LAB HEMETOLOGY METHOD 09/05/2025 8:02 AM [facility] RBC 3.60(L) 3.80 - 4.80 M/mcL LAB HEMETOLOGY METHOD 09/05/2025 8:02 AM [facility] Hemoglobin 9.7(L) 11.5 - 16.0 g/dL LAB HEMETOLOGY METHOD 09/05/2025 8:02 AM [facility] Hematocrit 29.9(L) 35.0 - 47.0 % LAB HEMETOLOGY METHOD 09/05/2025 8:02 AM [facility] MCV 83.1 79.0 - 98.0 FL LAB HEMETOLOGY METHOD 09/05/2025 8:02 AM [facility] MCH 26.9(L) 27.0 - 32.0 pcg LAB HEMETOLOGY METHOD 09/05/2025 8:02 AM [facility] MCHC 32.4 32.0 - 37.0 g/dL LAB HEMETOLOGY METHOD 09/05/2025 8:02 AM [facility] RDW 17.7(H) 11.0 - 15.0 % LAB HEMETOLOGY METHOD 09/05/2025 8:02 AM [facility] Platelets 218 130 - 400 K/mcL LAB HEMETOLOGY METHOD 09/05/2025 8:02 AM [facility] MPV 9.8 7.0 - 11.0 FL LAB HEMETOLOGY METHOD 09/05/2025 8:02 AM [facility] NRBC 0.0 <1.0 % LAB HEMETOLOGY METHOD 09/05/2025 8:02 AM [facility] NRBC Absolute 0.00 <0.10 K/mcL LAB HEMETOLOGY METHOD 09/05/2025 8:02 AM [facility] Blood Venous blood specimen / Unknown 09/05/2025 6:36 AM EST 09/05/2025 7:53 AM EST Chai Carias MD LAB BLOOD ORDERABLES Final Resul t [facility] [address] [place] [address], * (ABNORMAL) Comprehensive metabolic panel (09/05/2025 6:36 AM EST) Sodium 137 133 - 145 mmol/L LAB CHEMISTRY METHOD 09/05/2025 8:33 AM [facility] Potassium 4.6 3.5 - 5.5 mmol/L LAB CHEMISTRY METHOD 09/05/2025 8:33 AM [facility] Chloride 103 96 - 110 mmol/L LAB CHEMISTRY METHOD 09/05/2025 8:33 AM [facility] CO2 27 21 - 32 mmol/L LAB CHEMISTRY METHOD 09/05/2025 8:33 AM [facility] Anion Gap 7 3 - 11 LAB CHEMISTRY METHOD 09/05/2025 8:33 AM [facility] Glucose 97 70 - 100 mg/dL LAB CHEMISTRY METHOD 09/05/2025 8:33 AM [facility] BUN 18 5 - 25 mg/dL LAB CHEMISTRY METHOD 09/05/2025 8:33 AM [facility] Creatinine 0.71 0.50 - 1.10 mg/dL LAB CHEMISTRY METHOD 09/05/2025 8:33 AM [facility] eGFR 93 >=60 mL/min/1. 73m2 LAB CHEMISTRY METHOD 09/05/2025 8:33 AM [facility] Comment:Calculation based on the Chronic Kidney Disease Epidemiology Collaboration (CKD-EPI) equation refit without adjustment for race. BUN/Creatinine Ratio 25.4 LAB CHEMISTRY METHOD 09/05/2025 8:33 AM [facility] Calcium 9.2 8.5 - 10.5 mg/dL LAB CHEMISTRY METHOD 09/05/2025 8:33 AM [facility] AST (SGOT) 20 10 - 42 unit/L LAB CHEMISTRY METHOD 09/05/2025 8:33 AM [facility] ALT (SGPT) 27 10 - 60 unit/L LAB CHEMISTRY METHOD 09/05/2025 8:33 AM [facility] Alkaline Phosphatase 117 42 - 121 unit/L LAB CHEMISTRY METHOD 09/05/2025 8:33 AM [facility] Total Protein 6.7 6.0 - 8.0 g/dL LAB CHEMISTRY METHOD 09/05/2025 8:33 AM [facility] Albumin 3.1(L) 3.2 - 5.0 g/dL LAB CHEMISTRY METHOD 09/05/2025 8:33 AM [facility] Total Bilirubin 0.3 0.0 - 1.4 mg/dL LAB CHEMISTRY METHOD 09/05/2025 8:33 AM [facility] Blood Venous blood specimen / Unknown 09/05/2025 6:36 AM EST 09/05/2025 7:53 AM EST us Chai Carias MD LAB BLOOD ORDERABLES Final Resul t [facility] [address] [place] [address], [place] [phone] documented in this encounter Visit Diagnoses Diagnosis Type 2 diabetes mellitus without complications (CMS/HCC V24, CMS/HCC V28) Morbid (severe) obesity due to excess calories (CMS/HCC V24, CMS/HCC V28) documented in this encounter Care Teams Warehouse Technician Relationship Specialty Start Date End Date Rosa Castro MD [address] [place] [phone] PCP - General 03/14/25 documented as of this encounter
--- OUTSIDE RECORDS SUMMARY | 2025-10-23 08:30 | XMS_ITS | Encounter Summary ---
Author Organization [facility] Address [address] [place] [address] Care Team Providers Care Wire Coating Machine Operator Name Role Phone Rosa Castro MD Primary Care Provider [phone] Encounter Details Date Type Department Care Team (Late st Contact Info) Description 07/01/2025 Lab Requisition [facility] - Main Lab 299 [facility] [place] [address] Chai Carias MD [address] [place] [address] Dr [address] [place] Morbid (severe) obesity due to excess calories [...] LAB CHEMISTRY METHOD 07/01/2025 9:47 AM EDT [facility] Blood Venous blood specimen / Unknown 07/01/2025 6:50 AM EDT 07/01/2025 8:18 AM EDT us Chai Carias MD LAB BLOOD ORDERABLES Final Resul t Performing Organization Address [facility] Co de Phone Number [facility] [address] [place] [address], [place] [phone] * Thyroid stimulating hormone (07/01/2025 6:50 AM EDT) [facility] TSH 1.89 0.40 - 4.00 mcIU/mL LAB CHEMISTRY METHOD 07/01/2025 9:47 AM EDT [facility] Blood Venous blood specimen / Unknown 07/01/2025 6:50 AM EDT 07/01/2025 8:18 AM EDT us Chai Carias MD LAB BLOOD ORDERABLES Final Resul t Performing Organization Address [facility] de Phone Number [facility] [address] [place] [address], [place] [phone] * Lipid panel with reflex to direct LDL (07/01/2025 6:50 AM EDT) [facility] Cholesterol 118 0 - 200 mg/dL LAB CHEMISTRY METHOD 07/01/2025 8:51 AM EDT [facility] Triglycerides 131 0 - 150 mg/dL LAB CHEMISTRY METHOD 07/01/2025 8:51 AM EDT [facility] HDL 56 >=40 mg/dL LAB CHEMISTRY METHOD 07/01/2025 8:51 AM EDT [facility] LDL Calculated 36 0 - 100 mg/dL LAB CHEMISTRY METHOD 07/01/2025 8:51 AM EDT [facility] Comment:Estimated LDL Calcul ated using equation: Total cholesterol - HDL cholesterol - (Triglycerides/5) VLDL Cholesterol Josiah 26.2 mg/dL LAB CHEMISTRY METHOD 07/01/2025 8:51 AM EDT [facility] Non HDL Chol. (LDL+VLDL) 62 <145 mg/dL LAB CHEMISTRY METHOD 07/01/2025 8:51 AM EDT [facility] Chol/HDL Ratio 2.1 0.0 - 4.4 LAB CHEMISTRY METHOD 07/01/2025 8:51 AM EDT [facility] Blood Venous blood specimen / Unknown 07/01/2025 6:50 AM EDT 07/01/2025 8:18 AM EDT us Chai Carias MD LAB BLOOD ORDERABLES Final Resul t [facility] [address] [place] [address], documented in this encounter Visit Diagnoses Diagnosis Morbid (severe) obesity due to excess calories (CMS/HCC V24, CMS/HCC V28) Other hyperlipidemia documented in this encounter Additional Health Concerns Infection Onset Date Last Indicated Resolved Time Respiratory Rule-Out 07/29/2025 07/29/2025 025 10:21 AM EDT COVID-19 07/29/2025 07/29/2025 08/28/2025 7:04 PM EST documented as of this encounter Care Teams Wire Coating Machine Operator Relationship Specialty Start Date End Date Rosa Castro MD [address] [place] [phone] PCP - General 03/14/25 documented as of this encounter
--- OUTSIDE RECORDS SUMMARY | 2025-10-23 08:30 | XMS_ITS | Encounter Summary ---
Author Organization [facility] Address [address] [place] [address] Care Team Providers Care Medical Technologist Chemistry Name Role Phone Rosa Castro MD Primary Care Provider [phone] Encounter Details Date Type Department Care Team (Late st Contact Info) Description 09/30/2025 Lab Requisition [facility] - Main Lab [address] [facility] [place] [address] Chai Cairas MD [address] [place] [address] [address] [place] Gastro-esophageal reflux disease without esophagitis; Anemia, unspecified [...] unspecified documented in this encounter Care Teams Medical Technologist Chemistry Relationship Specialty Start Date End Date Rosa Castro MD [address] [place] [phone] PCP - General 03/14/25 documented as of this encounter
--- OUTSIDE RECORDS SUMMARY | 2025-10-23 08:30 | XMS_ITS | Encounter Summary ---
Author Organization [facility] Address [address] [place] [address] Care Team Providers Care Well Drill Operator Cable Tool Name Role Phone Rosa Castro MD Primary Care Provider [phone] Encounter Details Date Type Department Care Team (Late st Contact Info) Description 07/29/2025 Lab Requisition [facility] Lab [address] [place] [address] Chai Carias MD [address] [place] [address] [address] [place] Cough, unspecified; Nasal congestion; Shortness of breath [...] Procedure Name Priority Date/Time Associated Diagnosis Comments [id number], RSV, FLU A AND B QUALITATIVE RT-PCR, LOCAL REFERENCE LAB Routine 07/29/2025 9:43 AM EDT Cough, unspecified Nasal congestion Shortness of breath documented in this encounter Results * (ABNORMAL) [id number], RSV, Influenza A and B qualitative RT-PCR (07/29/2025 9:43 AM EDT) SARS COV-2 Detected(A ) Not Detected LAB MOLECULAR DIAGNOSTICS METHOD 07/30/2025 10:21 AM EDT [facility] Comment: Disclaimer: The manner in which this information is used to guide patient care is the responsibility of the healthcare provider. Testing was performed using the [employer] m SARS-CoV-2 test. This test has been [...] for Healthcare Providers can be found at: https://www.fda.gov/media/953134/download Fact sheet for Patients can be found at: https://www.fda.gov/media/828270/download Influenza A PCR Not Detected Not Detected LAB MOLECULAR DIAGNOSTICS METHOD 07/30/2025 10:21 AM EDT [facility] Influenza B PCR Not Detected Not Detected LAB MOLECULAR DIAGNOSTICS METHOD 07/30/2025 10:21 AM EDT [facility] RSV PCR Not Detected Not Detected LAB MOLECULAR DIAGNOSTICS METHOD 07/30/2025 10:21 AM T [facility] Swab Nasopharyngeal structure / Unknown 07/29/2025 9:43 AM EDT 07/29/2025 12:26 PM EDT Chai Carias MD LAB MICROBIOLOGY - GENERAL ORDER CHANTELLE Final Result [facility] [address] [place] [address], documented in this encounter Visit Diagnoses Diagnosis Cough, unspecified Nasal congestion Other diseases of nasal cavity and sinuses Shortness of breath documented in this encounter Additional Health Concerns Infection Onset Date Last Indicated Resolved Time Respiratory Rule-Out 07/29/2025 07/29/2025 025 10:21 AM EDT COVID-19 07/29/2025 07/29/2025 08/28/2025 7:04 PM EST documented as of this encounter Care Teams Well Drill Operator Cable Tool Relationship Specialty Start Date End Date Rosa Castro MD [address] [place] [phone] PCP - General 03/14/25 documented as of this encounter
--- OUTSIDE RECORDS SUMMARY | 2025-10-23 08:30 | XMS_ITS | Encounter Summary ---
[facility] Address [address] [place] [address] Care Team Providers Care Train Planner Name Role Phone Rosa Castro MD Primary Care Provider [phone] Encounter Details Date Type Department Care Team (Late st Contact Info) Description 01/18/2025 Lab Requisition [facility] Lab [address] [place] [address] Chai Carias MD [address] [place] [address] [address] [place] Altered mental status, unspecified Social History Tobacco [...] reflex microscopic (01/18/2025 6:00 AM EDT) Specific [place] Urine 1.015 1.003 - 1.030 LAB URINALYSIS - AUTOMATED METHOD 01/18/2025 7:22 AM EDT [facility] pH, Urine 7.0 5.0 - 8.0 pH LAB URINALYSIS - AUTOMATED METHOD 01/18/2025 7:22 AM [facility] Leukocytes, Urine Moderate(A) Negative LAB URINALYSIS - AUTOMATED METHOD 01/18/2025 7:22 AM [facility] Nitrite, Urine Positive(A) Negative LAB URINALYSIS - AUTOMATED METHOD 01/18/2025 7:22 AM [facility] Protein, Urine Negative <=Trace mg/dL LAB URINALYSIS - AUTOMATED METHOD 01/18/2025 7:22 AM [facility] Glucose, Urine Negative Negative mg/dL LAB URINALYSIS - AUTOMATED METHOD 01/18/2025 7:22 AM [facility] Ketones, Urine Negative Negative mg/dL LAB URINALYSIS - AUTOMATED METHOD 01/18/2025 7:22 AM [facility] Urobilinogen , Urine 1.0 0.2 - 1.0 mg/dL LAB URINALYSIS - AUTOMATED METHOD 01/18/2025 7:22 AM [facility] Bilirubin, Urine Negative Negative LAB URINALYSIS - AUTOMATED METHOD 01/18/2025 7:22 AM [facility] Blood, Urine Negative Negative LAB URINALYSIS - AUTOMATED METHOD 01/18/2025 7:22 AM [facility] RBC, Urine 0.8 0 - 4 /HPF LAB URINALYSIS - AUTOMATED METHOD 01/18/2025 7:22 AM [facility] WBC, Urine 34.5(H) 0 - 4 /HPF LAB URINALYSIS - AUTOMATED METHOD 01/18/2025 7:22 AM [facility] Squamous Epithelial, Urine 1 0 - 60 /LPF LAB URINALYSIS - AUTOMATED METHOD 01/18/2025 7:22 AM [facility] Bacteria, Urine Many(A) Negative /HPF LAB URINALYSIS - AUTOMATED METHOD 01/18/2025 7:22 AM [facility] Hyaline Casts, Urine 0.8 0 - 3 /LPF LAB URINALYSIS - AUTOMATED METHOD 01/18/2025 7:22 AM EDT [facility] Urine Urine specimen from urinary conduit / Unknown 01/18/2025 6:00 AM EDT 01/18/2025 7:05 AM EDT us Chai Carias MD LAB URINE ORDERABLES Final Resul t [facility] [address] [place] [address], [place] [phone] * (ABNORMAL) Culture urine (01/18/2025 6:00 AM EDT) Culture, Urine >100,000 CFU/mL Escherichia coli(A) NADER 01/20/2025 11:14 AM EDT [facility] Comment: This is an edited result. Previous organism was Gram negative bacilli on 01/19/2025 at 0846 EDT. Culture, Urine 50,000-100,000 CFU/mL Escherichia coli(A) NADER 01/20/2025 11:14 AM EDT [facility] Comment: The organism value [...] MICROBIOLOGY - GENERAL ORDER CHANTELLE Final Result [facility] [address] [place] [address], documented in this encounter Visit Diagnoses Diagnosis Altered mental status, unspecified documented in this encounter Additional Health Concerns Infection Onset Date Last Indicated Resolved Time Respiratory Rule-Out 07/29/2025 07/29/2025 025 10:21 AM EDT COVID-19 07/29/2025 07/29/2025 08/28/2025 7:04 PM EST documented as of this encounter Care Teams Train Planner Relationship Specialty Start Date End Date Rosa Castro MD [address] [place] [phone] PCP - General 03/14/25 documented as of this encounter
--- OUTSIDE RECORDS SUMMARY | 2025-10-23 08:30 | XMS_ITS | Encounter Summary ---
Author [facility] Address [address] [place] [address] Care Team Providers Care Caustic Room Attendant Name Role Phone Rosa Castro MD Primary Care Provider [phone] Encounter Details Date Type Department Care Team (Late st Contact Info) Description 03/08/2025 Lab Requisition [facility] - Main Lab 299 [facility] [place] [address] Chai Carias MD [address] [place] [address] [address] [place] Type 2 diabetes mellitus without complications (CMS/HCC [...] * Lavender tube (03/08/2025 7:00 AM EDT) [facility] Extra Tube Hold for add-ons. 03/08/2025 9:01 AM EDT [facility] Comment:Auto resulted. Blood Venous blood specimen / Unknown 03/08/2025 7:00 AM EDT 03/08/2025 7:57 AM EDT us Chai Carias MD LAB BLOOD ORDERABLES Final Resul t Performing Organization Address [facility]/ZIP Co de Phone Number [facility] [address] [place] [address], [place] [phone] * Hemoglobin A1c (03/08/2025 7:00 AM EDT) [facility] Hemoglobin A1C 5.8 <6.5 % LAB CHEMISTRY METHOD 03/08/2025 12:00 PM EDT [facility] Mean Bld Glu Estim. 120 mg/dL LAB CHEMISTRY METHOD 03/08/2025 12:00 PM EDT [facility] Blood Venous blood specimen / Unknown 03/08/2025 7:00 AM EDT 03/08/2025 7:45 AM EDT us Chai Carias MD LAB BLOOD ORDERABLES Final Resul t Performing Organization Address City/[facility]/ZIP Co de Phone Number [facility] [address] [place] [address], [place] [phone] * (ABNORMAL) Complete blood count (03/08/2025 7:00 AM EDT) [facility] WBC 8.4 4.8 - 10.8 K/[facility] LAB HEMETOLOGY METHOD 03/08/2025 8:30 AM EDT [facility] RBC 4.10 3.80 - 4.80 M/[facility] LAB HEMETOLOGY METHOD 03/08/2025 8:30 AM EDT [facility] Hemoglobin 11.0(L) 11.5 - 16.0 g/dL LAB HEMETOLOGY METHOD 03/08/2025 8:30 AM EDT [facility] Hematocrit 35.3 35.0 - 47.0 % LAB HEMETOLOGY METHOD 03/08/2025 8:30 AM EDT [facility] MCV 87.2 79.0 - 98.0 FL LAB HEMETOLOGY METHOD 03/08/2025 8:30 AM EDT [facility] MCH 27.2 27.0 - 32.0 pcg LAB HEMETOLOGY METHOD 03/08/2025 8:30 AM EDT [facility] MCHC 31.2(L) 32.0 - 37.0 g/dL LAB HEMETOLOGY METHOD 03/08/2025 8:30 AM EDT [facility] RDW 16.9(H) 11.0 - 15.0 % LAB HEMETOLOGY METHOD 03/08/2025 8:30 AM EDT [facility] Platelets 194 130 - 400 K/mcL LAB HEMETOLOGY METHOD 03/08/2025 8:30 AM EDT [facility] MPV 10.2 7.0 - 11.0 FL LAB HEMETOLOGY METHOD 03/08/2025 8:30 AM EDT [facility] NRBC 0.0 <1.0 % LAB HEMETOLOGY METHOD 03/08/2025 8:30 AM EDT [facility] NRBC Absolute 0.00 <0.10 K/mcL LAB HEMETOLOGY METHOD 03/08/2025 8:30 AM EDT [facility] Blood Venous blood specimen / Unknown 03/08/2025 7:00 AM EDT 03/08/2025 7:45 AM EDT us Chai Carias MD LAB BLOOD ORDERABLES Final Resul t [facility] [address] [place] [address], [place] [phone] * (ABNORMAL) Comprehensive metabolic panel (03/08/2025 7:00 [...] LAB CHEMISTRY METHOD 03/08/2025 9:04 AM EDT [facility] ALT (SGPT) 26 10 - 60 unit/L LAB CHEMISTRY METHOD 03/08/2025 9:04 AM EDT [facility] Alkaline Phosphatase 148(H) 42 - 121 unit/L LAB CHEMISTRY METHOD 03/08/2025 9:04 AM EDT [facility] Total Protein 7.2 6.0 - 8.0 g/dL LAB CHEMISTRY METHOD 03/08/2025 9:04 AM T [facility] Albumin 3.1(L) 3.2 - 5.0 g/dL LAB CHEMISTRY METHOD 03/08/2025 9:04 AM [facility] Total Bilirubin 0.4 0.0 - 1.4 mg/dL LAB CHEMISTRY METHOD 03/08/2025 9:04 AM [facility] Blood Venous blood specimen / Unknown 03/08/2025 7:00 AM EDT 03/08/2025 7:45 AM EDT us Chai Carias MD LAB BLOOD ORDERABLES Final Resul t [facility] [address] [place] [address], documented in this encounter Visit Diagnoses Diagnosis Type 2 diabetes mellitus without complications (CMS/HCC V24, CMS/HCC V28) documented in this encounter Additional Health Concerns Infection Onset Date Last Indicated Resolved Time Respiratory Rule-Out 07/29/2025 07/29/2025 025 10:21 AM EDT COVID-19 07/29/2025 07/29/2025 08/28/2025 7:04 PM EST documented as of this encounter Care Teams Caustic Room Attendant Relationship Specialty Start Date End Date Rosa Castro MD [address] [place] [phone] PCP - General 03/14/25 documented as of this encounter
== END 2025-10-23 08:49 | disposition home or self-care (01) ==
LOC: HO.HWS 08:24
PROVIDERS: Visit Provider Obstetrics & Gynecology
DX: R10.20 Pelvic and perineal pain unspecified side (principal); M85.80 Other specified disorders of bone density and structure, unspecified site
CPT/HCPCS: 99213